=== PATIENT | female | born 1945 | race Caucasian/White ===

== ENCOUNTER 2019-07-30 14:16 | Outpatient (CLI) | payer MEDICARE, SELFPAY ==
[2019-07-30 14:48] LABS: Basophils # 0.1 10^3/uL (0.0-0.1); Eosinophils # 0.1 10^3/uL (0.0-0.8); Eosinophils % 1.9 %; Lymphocytes # 1.3 10^3/uL (0.8-4.8); Lymphocytes % 27.7 %; Mean Corpuscular HGB Conc 32.5 g/dL (30.0-36.0); Mean Corpuscular Hemoglobin 29.5 pg (28.0-34.0); Mean Corpuscular Volume 90.7 fL (81-99); Mean Platelet Volume 9.4 fL (7.4-10.4); Monocytes # 0.5 10^3/uL (0.2-0.9); Monocytes % 9.8 %; Neutrophils # 2.9 10^3/uL (1.8-7.7); Neutrophils % 59.4 %; Nucleated Red Blood Cells % 0 %; Platelet Count 182 10^3/cmm (130-400); Red Blood Count 4.41 10^6/uL (4.1-5.3); Red Cell Distribution Width 13.4 % (12.1-15.1); White Blood Count 4.8 10^3/uL (4.0-10.0)
[2019-07-30 15:07] LABS: Alanine Aminotransferase 23 U/L (0-33); Albumin Level 4.2 g/dL (3.5-5.2); Alkaline Phosphatase 113 IU/L (35-105); Anion Gap 16.8 (5-19); Aspartate Amino Transferase 23 U/L (0-32); Blood Urea Nitrogen 16 mg/dL (8-23); Carbon Dioxide 26 mmol/L (22-29); Chloride 100 mmol/L (98-107); Globulin 3.4 g/dL (1.3-4.6); Glucose 140 mg/dL (65-115); Potassium 3.8 mmol/L (3.5-5.1); Sodium 139 mmol/L (136-145); Total Bilirubin 0.6 mg/dL (0.15-1.2); Total Protein 7.6 g/dL (6.6-8.7)
--- NOTE | 2019-07-30 19:54 | ONC FU_ITS ---
Dr. Talley Patient Follow-Up Note Patient: Brooke Robert Unit #: [id number]: 1945 Dicatated By: Tuan Talley M.D.Date of Visit:Jul 30, 2019 Onc Med Follow-up/Prog Note Chief Complaint: Metastatic breast cancer, ER/VT positive, HER-2/syed unknown. History of Present Illness: This is a 73 year-old woman with stage IV breast cancer (Tx, Nx, M1), ER/VT positive, involving pleura, lung, lymph nodes and bone. She has a remote history of node positive breast cancer, status post mastectomy in 1988 followed by adjuvant chemotherapy and then hormonal treatment with tamoxifen for about 1 year, which she stopped due to intolerance. She then had an endometrial carcinoma in 2006, status post hysterectomy. In July 2015 the patient presented with significant pulmonary symptoms and weight loss. Her CT of the chest on 08/15/2015 showed diffuse metastatic disease in the lungs with a large left pleural effusion, superior mediastinal mass and bone destruction. She underwent thoracentesis by Dr. Burton. The pleural cytology was positive for malignancy consistent with breast primary. ER was positive and VT was positive. The specimen was too scant to perform HER-2/syed studies. She was first seen by Dr. Quevedo on 09/15/2015. Tumor markers were elevated with CA 15-3 151 and CA-27-29 162. She began hormonal therapy with Femara 2.5 mg daily. Staging PET/CT on 09/27/2015 showed multiple subcentimeter pulmonary nodules with FDG uptake and anterior mediastinal mass with mediastinal and hilar lymphadenopathy. There was malignant pleural effusion, right more than left, and several sclerotic bone lesions including in manubrium, sternum and thoracic vertebral bodies. She was referred to see thoracic surgeon, Dr. Murillo for the management of symptomatic pleural effusion. MRI of the head on 09/30/2015 without parenchymal metastatic disease, although blastic lesion in C3 was identified. Biopsy for HER-2/syed evaluation was requested, and ultrasound-guided biopsy of the left supraclavicular region was attempted, but it was not sufficient for HER-2/syed analysis. She was seen for follow-up with Dr. Quevedo on 10/17/2015. At that time she recommended addition of palbociclib to the Femara, to initially start at 75 mg daily on a 21/28 day schedule. During the first cycle she reported having several spells in which she has felt faint, as if she were going to pass out or . The first one occurred while she was eating dinner, and she had 2 subsequent episodes. They didn't last more than a few minutes. She did not have actual loss of consciousness, and she had no chest pain or diaphoresis. The palbociclib was temporarily put on hold. She continued letrozole 2.5 mg daily, and she subsequently was able to restart palbociclib. She was able to tolerate it at a reduced dosage of 75 mg daily on a 21/28 day schedule. Her restaging PET/CT on 05/10/2018 showed significant response with no convincing abnormal FDG activity to suggest metabolically active malignancy or metastatic disease. She had persistent right pleural effusion, for which she underwent ultrasound guided thoracentesis on 07/06/2016 with removal of 1250 ml of fluid. She had significant symptomatic improvement with the procedure. She then continued her treatment with letrozole/palbociclib. During subsequent follow-up, she has tolerated the treatment well, and thus far there has been no obvious recurrence/progression of her breast cancer. She has additional history of hypertension. She has had no other ongoing medical illnesses. She is a nonsmoker. INTERIM HISTORY: She is seen for a scheduled visit. She has been feeling pretty good generally. Her main complaint is that has had persistent sinus and upper respiratory symptoms since visiting family in [place] just before [place]. She is starting to get more active. Her ECOG score is 1. She has good appetite. She has lost a little weight. She has no fever, night sweats, or hot flashes. She continues to have sinus congestion and drainage, and she has ongoing problems with laryngitis. She has just a little bit of cough, mostly nonproductive. She has no shortness of breath or chest pain. She has some nausea at times. She has no other GI complaints. She had mild stress incontinence when her cough was worse. She has no significant joint or bone pain. She has carpal tunnel symptoms bilaterally. She has no other focal neurologic symptoms. Medications: ALPRAZolam 0.5 (0.5 mg) Tablet Oral at bedtime PRN, CeleXA 1 (20 mg) Tablet Oral daily, Docusate Sodium 1 Capsule Oral daily PRN, Femara 1 (2.5 mg) Tablet Oral daily, Ibrance 1 (75 mg) Capsule Oral daily, Lasix 1 Tablet (of 40 mg) Oral daily, Metoprolol Succinate ER 1 (50 mg) Tablet SR 24 HR Oral daily, Pantoprazole Sodium 1 Tablet (of 40 mg) Tablet, enteric coated Oral daily, Potassium Chloride ER 1 Tablet (of 10 meq) Tablet, controlled release Oral daily, Pure CBD 1 Capsule daily, Ventolin HFA Aerosol, solution Inhalation PRN, ZyrTEC Allergy Capsule Oral daily Allergies: Demerol, latex , msg , nasids, nitrates, and sulfa. Review of Systems: Constitutional - She is starting to get more active. Her appetite is good. Her weight is down a few pounds. No fever, chills, hot flashes, or night sweats. ECOG score is 1, ENMT - She has sinus congestion/drainage with a nonproductive cough. No mouth sores. No sore throat or difficulty swallowing, Hematologic/Lymphatic - No abnormal bruising or bleeding, Respiratory - No shortness of breath. No pleuritic pain or hemoptysis, Cardiovascular - No angina pain. No palpitations, Gastrointestinal - She has some nausea from her sinus drainage. No heartburn or acid reflux. No diarrhea or constipation. No blood in the stool or black stools, Genitourinary (F) - No dysuria or hematuria. No urinary frequency. No urgency. She did have some urinary incontinence when she was sick with a cold. It has gotten better, Musculoskeletal - No joint or bone pain, Integumentary - No skin complications, Neurologic - No headache or dizziness. She has numbness and tingling in her hands, Psychiatric - No anxiety. She has depression due to her being sick. She is sleeping better. Vital Signs: Performed on Jul 30, 2019 15:09 Height - 68.00 in Weight - 196.0 lbs (LOW) BSA - 2.03 sq.m BMI - 29.80 Temperature - 98.4 F Pulse - 84 /min Respiration - 16 /min BP - 171/74 mm(hg) (HIGH) O2 Sat - 99 % Pain - 0 Fatigue - 6 Physical Examination: Constitutional - She looks good generally, Eyes - Sclerae nonicteric. Conjunctivae clear, ENMT - No lesions noted in the oral cavity, Hematologic/Lymphatic - No cervical, clavicular, or axillary adenopathy, Respiratory - Lungs sound clear. She has good air movement, Cardiovascular - Heart rhythm is regular. There is a I/ systolic murmur. There is no gallop or rub noted, Abdomen - Mildly distended but soft. Liver and spleen are not enlarged. There is no abdominal mass or ascites noted and there is no inguinal adenopathy, Extremities - Mild lower extremity edema, Neurologic - No focal neurologic deficits noted. Lab/Imaging: Test performed on Jul 30, 2019 14:30 Sodium 139 mmol/L Potassium 3.8 mmol/L Chloride 100 mmol/L CO2 26 mmol/L Anion Gap 16.8 BUN 16 mg/dL Creatinine 0.9 mg/dL Cr Clearance (Est) 74.64 mL/min Glucose 140 mg/dL Calcium 10.0 mg/dL Protein, Total 7.6 g/dL Albumin 4.2 g/dL Globulin 3.4 g/dL Bilirubin, Total 0.6 mg/dL ALT (SGPT) 23 U/L AST (SGOT) 23 U/L Alkaline Phosphatase 113 IU/L WBC 4.8 10 3/uL RBC 4.41 10 6/uL HGB 13.0 g/dL HCT 40.0 % MCV 90.7 fL MCH 29.5 pg MCHC 32.5 g/dL RDW 13.4 % Platelet Count 182 10 3/cmm MPV 9.4 fL Neutrophils 2.9 10 3/uL Lymphocytes 1.3 10 3/uL Monocytes 0.5 10 3/uL Eosinophils 0.1 10 3/uL Basophils 0.1 10 3/uL Neutrophil % 59.4 % Lymphocyte % 27.7 % Monocyte % 9.8 % Eosinophil % 1.9 % Basophils % 1.0 % Impression: 1. Patient with stage IV breast cancer, ER/VT positive and HER-2 unknown. She had presented in July 2015 with symptomatic pulmonary disease, large left pleural effusion, mediastinal mass, and metastatic bone lesions. Pleural fluid cytology showed malignant cells consistent with breast primary, ER/VT positive. There was insufficient material for HER-2/syed studies. 2. Femara 2.5 mg began on 09/15/2015 with subsequent clinical improvement. 3. Palbociclib 75 mg daily on a 21/28 day schedule began . It was held during the 1st cycle due to lightheadedness/near syncope. She has since then restarted palbociclib at the same dosage, and she appears to be tolerating it well. 4. She was previously treated for breast cancer in 1988 and for endometrial cancer in 2006. Her other medical illnesses include: 5. Hypertension. 6. GERD. 7. She has symptoms of carpal tunnel syndrome bilaterally. She had significant clinical improvement on treatment with Femara/palbociclib, and there was evidence of significant response by restaging PET/CT in April 2016. She has tolerated her treatment very well with the palbociclib dosage reduced to 75 mg daily on a 21/28 day schedule. Her laboratory studies had shown some decline in her renal function, presumably due to to her underlying hypertension, during subsequent follow-up it did improve. She had persistent sinus/respiratory tract symptoms since . It is uncertain to what extent those may be allergy related. She otherwise appears stable clinically with no evidence of progression of the breast cancer. Plan: She continues letrozole 2.5 mg daily together with palbociclib 75 mg daily on a 21/28 day schedule. I will see her again in 3 months. Signed By: Tuan Talley M.D. <<Signature on File>>
[2019-07-31 09:17] LABS: CA 27.29 26 U/mL (<38)
== END 2019-07-30 14:17 | disposition home or self-care (01) ==
LOC: ONCMED 14:21
PROVIDERS: Family Provider Family Medicine; PCP Family Medicine; Visit Provider Internal Medicine Medical Oncology
DX: C79.51 Secondary malignant neoplasm of bone (principal); C50.919 Malignant neoplasm of unspecified site of unspecified female breast; C78.2 Secondary malignant neoplasm of pleura; C78.01 Secondary malignant neoplasm of right lung; C78.02 Secondary malignant neoplasm of left lung; I10 Essential (primary) hypertension; G56.03 Carpal tunnel syndrome, bilateral upper limbs; Z17.0 Estrogen receptor positive status [ER+]; Z79.899 Other long term (current) drug therapy; Z79.811 Long term (current) use of aromatase inhibitors; Z85.42 Personal history of malignant neoplasm of other parts of uterus
CPT/HCPCS: 80053; 85025; 86300; 99214

== ENCOUNTER 2019-11-03 13:47 | Outpatient (CLI) | payer MEDICARE, SELFPAY ==
[2019-11-03 14:32] LABS: Basophils # 0.1 10^3/uL (0.0-0.1); Basophils % 1.6 %; Eosinophils # 0.1 10^3/uL (0.0-0.8); Eosinophils % 1.8 %; Hemoglobin 13.4 g/dL (11.5-15.3); Lymphocytes # 1.1 10^3/uL (0.8-4.8); Lymphocytes % 24.6 %; Mean Corpuscular HGB Conc 33.5 g/dL (30.0-36.0); Mean Corpuscular Volume 92.6 fL (81-99); Mean Platelet Volume 9.9 fL (7.4-10.4); Monocytes # 0.3 10^3/uL (0.2-0.9); Monocytes % 6.2 %; Neutrophils # 2.9 10^3/uL (1.8-7.7); Neutrophils % 65.6 %; Nucleated Red Blood Cells % 0 %; Platelet Count 304 10^3/cmm (130-400); Red Blood Count 4.32 10^6/uL (4.1-5.3); Red Cell Distribution Width 13.4 % (12.1-15.1); White Blood Count 4.4 10^3/uL (4.0-10.0)
[2019-11-03 14:40] LABS: Alanine Aminotransferase 20 U/L (0-33); Albumin Level 4.5 g/dL (3.5-5.2); Alkaline Phosphatase 81 IU/L (35-105); Anion Gap 18.1 (5-19); Aspartate Amino Transferase 25 U/L (0-32); Blood Urea Nitrogen 21 mg/dL (8-23); Calcium 9.5 mg/dL (8.5-10.5); Carbon Dioxide 25 mmol/L (22-29); Chloride 101 mmol/L (98-107); Globulin 2.9 g/dL (1.3-4.6); Glucose 125 mg/dL (65-115); Osmolality Calculated 288 mOsm/kg (285-295); Potassium 4.1 mmol/L (3.5-5.1); Sodium 140 mmol/L (136-145); Total Bilirubin 0.7 mg/dL (0.15-1.2); Total Protein 7.4 g/dL (6.6-8.7)
[2019-11-05 07:26] LABS: CA 27.29 47 U/mL (<38)
--- NOTE | 2019-11-07 10:23 | ONC FU_ITS ---
Dr. Talley Patient Follow-Up Note Patient: Brooke Robert Unit #: [id number]: 1945 Dicatated By: Tuan Talley M.D.Date of Visit:Nov 03, 2019 Onc Med Follow-up/Prog Note Chief Complaint: Metastatic breast cancer, ER/CT positive, HER-2/syed unknown. History of Present Illness: This is a 74 year-old woman with stage IV breast cancer (Tx, Nx, M1), ER/CT positive, involving pleura, lung, lymph nodes and bone. She has a remote history of node positive breast cancer, status post mastectomy in 1988 followed by adjuvant chemotherapy and then hormonal treatment with tamoxifen for about 1 year, which she stopped due to intolerance. She then had an endometrial carcinoma in 2006, status post hysterectomy. In July 2015 the patient presented with significant pulmonary symptoms and weight loss. Her CT of the chest on 08/15/2015 showed diffuse metastatic disease in the lungs with a large left pleural effusion, superior mediastinal mass and bone destruction. She underwent thoracentesis by Dr. Burton. The pleural cytology was positive for malignancy consistent with breast primary. ER was positive and CT was positive. The specimen was too scant to perform HER-2/syed studies. She was first seen by Dr. Quevedo on 09/15/2015. Tumor markers were elevated with CA 15-3 151 and CA-27-29 162. She began hormonal therapy with Femara 2.5 mg daily. Staging PET/CT on 09/27/2015 showed multiple subcentimeter pulmonary nodules with FDG uptake and anterior mediastinal mass with mediastinal and hilar lymphadenopathy. There was malignant pleural effusion, right more than left, and several sclerotic bone lesions including in manubrium, sternum and thoracic vertebral bodies. She was referred to see thoracic surgeon, Dr. Murillo for the management of symptomatic pleural effusion. MRI of the head on 09/30/2015 without parenchymal metastatic disease, although blastic lesion in C3 was identified. Biopsy for HER-2/syed evaluation was requested, and ultrasound-guided biopsy of the left supraclavicular region was attempted, but it was not sufficient for HER-2/syed analysis. She was seen for follow-up with Dr. Quevedo on 10/17/2015. At that time she recommended addition of palbociclib to the Femara, to initially start at 75 mg daily on a 21/28 day schedule. During the first cycle she reported having several spells in which she has felt faint, as if she were going to pass out or . The first one occurred while she was eating dinner, and she had 2 subsequent episodes. They didn't last more than a few minutes. She did not have actual loss of consciousness, and she had no chest pain or diaphoresis. The palbociclib was temporarily put on hold. She continued letrozole 2.5 mg daily, and she subsequently was able to restart palbociclib. She was able to tolerate it at a reduced dosage of 75 mg daily on a 21/28 day schedule. Her restaging PET/CT on 05/10/2018 showed significant response with no convincing abnormal FDG activity to suggest metabolically active malignancy or metastatic disease. She had persistent right pleural effusion, for which she underwent ultrasound guided thoracentesis on 07/06/2016 with removal of 1250 ml of fluid. She had significant symptomatic improvement with the procedure. She then continued her treatment with letrozole/palbociclib. She tolerated it well, and during subsequent follow-up there was no obvious recurrence/progression of her breast cancer. She has additional history of hypertension. She has had no other ongoing medical illnesses. She is a nonsmoker. INTERIM HISTORY: As of her follow-up visit on 07/30/2019 there was a slight increase in the CA-27-29 level, to 26 U/mL compared to 19.83 U/mL in February 2019. She appeared stable clinically, and she continued her treatment with letrozole/palbociclib. She is seen for a scheduled visit. She has been feeling really good. She has pretty good energy. She is able to do light work. ECOG score is 1. Her appetite is good. She has no fever, night sweats, or hot flashes. She has no shortness of breath, cough, or chest pain. She has no GI or complaints. She has no significant joint or bone pain. She does have carpal tunnel symptoms bilaterally. She has no other focal neurologic symptoms. Medications: ALPRAZolam 0.5 (0.5 mg) Tablet Oral at bedtime PRN, CeleXA 1 (20 mg) Tablet Oral daily, Docusate Sodium 1 Capsule Oral daily PRN, Femara 1 (2.5 mg) Tablet Oral daily, Ibrance 1 (75 mg) Capsule Oral daily, Lasix 1 Tablet (of 40 mg) Oral daily, Metoprolol Succinate ER 1 (50 mg) Tablet SR 24 HR Oral daily, Pantoprazole Sodium 1 Tablet (of 40 mg) Tablet, enteric coated Oral daily, Potassium Chloride ER 1 Tablet (of 10 meq) Tablet, controlled release Oral daily, Pure CBD 1 Capsule daily, Ventolin HFA Aerosol, solution Inhalation PRN, ZyrTEC Allergy Capsule Oral daily Allergies: Demerol, latex, msg, nasids, nitrates, and sulfa. Review of Systems: Constitutional - She generally feels good. She energy is good. She is doing light work in and around the house. Her appetite is good and weight is stable. No fever, night sweats, or hot flashes. ECOG score is 1, ENMT - She has seasonal allergies. No mouth sores. No sore throat or difficulty swallowing, Hematologic/Lymphatic - She bruises easily, Respiratory - No shortness of breath. No cough. No pleuritic pain or hemoptysis, Cardiovascular - No angina pain. No palpitations, Gastrointestinal - No nausea or vomiting. No heartburn or acid reflux. She stopped taking her Prilosec. No diarrhea or constipation. No blood in the stool or black stools, Genitourinary (F) - No dysuria or hematuria. No urinary frequency. No urgency or incontinence, Musculoskeletal - No joint or bone pain, Integumentary - No skin complications, Neurologic - No headache or dizziness. She has carpal tunnel symptoms in both hands. No other focal neurologic symptoms, Psychiatric - No anxiety or depression. She has does not sleep well at night. Vital Signs: Performed on Nov 03, 2019 15:21 Height - 68.00 in Weight - 200.6 lbs (HIGH) BSA - 2.05 sq.m BMI - 30.50 (HIGH) Temperature - 98.2 F (LOW) Pulse - 86 /min Respiration - 20 /min BP - 134/66 mm(hg) O2 Sat - 97 % Pain - 0 Physical Examination: Constitutional - She looks good generally, Eyes - Sclerae nonicteric. Conjunctivae clear, ENMT - No lesions noted in the oral cavity, Hematologic/Lymphatic - No cervical, clavicular, or axillary adenopathy, Respiratory - Lungs sound clear. She has good air movement bilaterally, Cardiovascular - Heart rhythm is regular. There is no murmur, gallop, or rub noted, Abdomen - Soft. Liver and spleen are not enlarged. There is no abdominal mass or ascites noted and there is no inguinal adenopathy, Extremities - Mild lower extremity edema, Neurologic - No focal neurologic deficits noted. Lab/Imaging: Test performed on Nov 03, 2019 14:00 Sodium 140 mmol/L Potassium 4.1 mmol/L Chloride 101 mmol/L CO2 25 mmol/L Anion Gap 18.1 BUN 21 mg/dL Creatinine 1.0 mg/dL Cr Clearance (Est) 68.75 mL/min Glucose 125 mg/dL Calcium 9.5 mg/dL Protein, Total 7.4 g/dL Albumin 4.5 g/dL Globulin 2.9 g/dL Bilirubin, Total 0.7 mg/dL ALT (SGPT) 20 U/L AST (SGOT) 25 U/L Alkaline Phosphatase 81 IU/L WBC 4.4 10 3/uL RBC 4.32 10 6/uL HGB 13.4 g/dL HCT 40.0 % MCV 92.6 fL MCH 31.0 pg MCHC 33.5 g/dL RDW 13.4 % Platelet Count 304 10 3/cmm MPV 9.9 fL Neutrophils 2.9 10 3/uL Lymphocytes 1.1 10 3/uL Monocytes 0.3 10 3/uL Eosinophils 0.1 10 3/uL Basophils 0.1 10 3/uL Neutrophil % 65.6 % Lymphocyte % 24.6 % Monocyte % 6.2 % Eosinophil % 1.8 % Basophils % 1.6 % NRBC % 0 % Impression: 1. Patient with stage IV breast cancer, ER/CT positive and HER-2 unknown. She had presented in July 2015 with symptomatic pulmonary disease, large left pleural effusion, mediastinal mass, and metastatic bone lesions. Pleural fluid cytology showed malignant cells consistent with breast primary, ER/CT positive. There was insufficient material for HER-2/syed studies. 2. Femara 2.5 mg began on 09/15/2015 with subsequent clinical improvement. 3. Palbociclib 75 mg daily on a 21/28 day schedule began . It was held during the 1st cycle due to lightheadedness/near syncope. She has since then restarted palbociclib at the same dosage, and she appears to be tolerating it well. 4. She was previously treated for breast cancer in 1988 and for endometrial cancer in 2006. Her other medical illnesses include: 5. Hypertension. 6. GERD. 7. She has symptoms of carpal tunnel syndrome bilaterally. She had significant clinical improvement on treatment with Femara/palbociclib, and there was evidence of significant response by restaging PET/CT in April 2016. She has tolerated her treatment very well with the palbociclib dosage reduced to 75 mg daily on a 21/28 day schedule. Her laboratory studies had shown some decline in her renal function, presumably due to to her underlying hypertension, but during subsequent follow-up it did improve. As of her follow-up visit on 07/30/2019 there was a slight increase in her CA-27-29 level. As yet the significance of that remains uncertain, as she has still been doing very well clinically. The current level is pending. Plan: She continues letrozole 2.5 mg daily together with palbociclib 75 mg daily on a 21/28 day schedule. If there is further increase in the CA-27-29 level, she will need a restaging PET/CT. I will otherwise just plan to see her again in 3 months. Signed By: Tuan Talley M.D. <<Signature on File>>
== END 2019-11-03 13:48 | disposition home or self-care (01) ==
LOC: ONCMED 13:51
PROVIDERS: PCP Family Medicine; Visit Provider Internal Medicine Medical Oncology
DX: C79.51 Secondary malignant neoplasm of bone (principal); C78.01 Secondary malignant neoplasm of right lung; C78.02 Secondary malignant neoplasm of left lung; C78.2 Secondary malignant neoplasm of pleura; J91.0 Malignant pleural effusion; N18.9 Chronic kidney disease, unspecified; M85.88 Other specified disorders of bone density and structure, other site; I10 Essential (primary) hypertension; K21.9 Gastro-esophageal reflux disease without esophagitis; G56.03 Carpal tunnel syndrome, bilateral upper limbs; Z85.3 Personal history of malignant neoplasm of breast; Z85.42 Personal history of malignant neoplasm of other parts of uterus; Z79.811 Long term (current) use of aromatase inhibitors; Z92.21 Personal history of antineoplastic chemotherapy; Z92.3 Personal history of irradiation; Z90.12 Acquired absence of left breast and nipple; Z90.11 Acquired absence of right breast and nipple; Z90.710 Acquired absence of both cervix and uterus
CPT/HCPCS: 36415; 80053; 85025; 86300; 99214

== ENCOUNTER 2020-02-11 07:35 | Outpatient (CLI) | payer MEDICARE, SELFPAY ==
--- NOTE | 2020-02-11 07:42 | CT_ITS ---
WS: [id number] CT CHEST WITH INTRAVENOUS CONTRAST HISTORY: METASTATIC BREAST CANCER TECHNIQUE: Contiguous 5 mm axial imaging performed on the thorax. Coronal and sagittal reformats are submitted. All CT scans at [facility] use at least one of these dose optimization techniq ues: automated exposure control; mA and/or kV adjustment per patient size (includes targeted exams wh ere dose is matched to clinical indication); or iterative reconstruction. CONTRAST: Visipaque 320; 95 mL IV. DLP: 696.54 mGy.cm COMPARISON: 08/15/2015 Lungs and central airway: Innumerable bilateral pulmonary nodules. Some of these are round in shape a nd some are irregular and ill-defined. These nodules and central parenchymal. These multi lobar nodul es are all less than a centimeter. As compared to the prior study from 2015 there is been marked impr ovement. Pleura: Small layering RIGHT pleural effusion has decreased in size since the prior exam. Heart and pericardium: Mild enlargement of the LEFT heart chambers. No pericardial effusion. Mediastinum and gabi: Indeterminate bilateral hilar lymph nodes. The largest lymph node is along the inferior LEFT pulmonary artery measuring 10 mm. This lymph node is more prominent in size than on the prior examination. Otherwise the lymph nodes are stable or decreased in size. Previously described increased soft tissue in the anterior mediastinum has significantly decreased in size now measuring 2.3 x 1.1 cm. Vessels: Mild atherosclerosis aorta. Normal size pulmonary artery. Chest wall and lower neck: Bilateral breast implants. 11 mm RIGHT thyroid nodule. Upper abdomen: Mild hepatic steatosis. No metastatic lesions in the visualized liver. Prior cholecyst ectomy. Small hiatal hernia. No adrenal mass. Osseous structures: Osteopenia. No osteoblastic or osteolytic bone disease. CT/CT chest w con* [id number] IMPRESSION: 1. Innumerable, multilobar subcentimeter pulmonary nodules. As compared to 07/26 the nodules have decreased in size and number. Cannot completely exclude that these are not new nodules representing recurrent metastatic disease witho ut interval examinations. 2. Indeterminate and enlarged LEFT pulmonary artery lymph node at 11 mm. 3. Small RIGHT pleural effusion has decreased since 2016. 4. Bilateral mastectomies with implants. 5. Significant decrease in size of the previously described superior mediastin al soft tissue. Thought to be metastatic adenopathy on the prior study. There i s still a small component of the soft tissue present which could be treated dis ease. No interval studies since 08/15/2015.
[2020-02-11 08:15] LABS: Basophils # 0.1 10^3/uL (0.0-0.1); Basophils % 1.2 %; Eosinophils # 0.1 10^3/uL (0.0-0.8); Eosinophils % 2.7 %; Hematocrit 38.9 % (37.0-47.0); Hemoglobin 12.9 g/dL (11.5-15.3); Lymphocytes # 1.1 10^3/uL (0.8-4.8); Mean Corpuscular HGB Conc 33.2 g/dL (30.0-36.0); Mean Corpuscular Hemoglobin 31.2 pg (28.0-34.0); Mean Corpuscular Volume 94.2 fL (81-99); Mean Platelet Volume 9.2 fL (7.4-10.4); Monocytes # 0.3 10^3/uL (0.2-0.9); Monocytes % 6.1 %; Neutrophils # 2.63 10^3/uL (1.8-7.7); Neutrophils % 63.8 %; Nucleated Red Blood Cells % 0 %; Platelet Count 151 10^3/cmm (130-400); Red Blood Count 4.13 10^6/uL (4.1-5.3); White Blood Count 4.1 10^3/uL (4.0-10.0)
[2020-02-11 08:39] LABS: Alanine Aminotransferase 15 U/L (0-33); Albumin Level 4.2 g/dL (3.5-5.2); Alkaline Phosphatase 79 IU/L (35-105); Anion Gap 14.1 (5-19); Aspartate Amino Transferase 15 U/L (0-32); Blood Urea Nitrogen 19 mg/dL (8-23); Calcium 9.5 mg/dL (8.5-10.5); Carbon Dioxide 28 mmol/L (22-29); Chloride 101 mmol/L (98-107); Glucose 135 mg/dL (65-115); Osmolality Calculated 292 mOsm/kg (285-295); Potassium 4.1 mmol/L (3.5-5.1); Sodium 139 mmol/L (136-145); Total Bilirubin 0.5 mg/dL (0.15-1.2); Total Protein 7.2 g/dL (6.6-8.7)
[2020-02-11] MEDS: iodixanol 320 mg/mL 100mL Btl IV (09:02)
[2020-02-11 09:16] LABS: 25 Hydroxy Vitamin D 28 ng/mL (30-100)
[2020-02-12 11:47] LABS: CA 27.29 30 U/mL (<38)
== END 2020-02-11 07:36 | disposition home or self-care (01) ==
LOC: CT 07:37
PROVIDERS: PCP Family Medicine; Visit Provider Internal Medicine Medical Oncology
DX: C50.919 Malignant neoplasm of unspecified site of unspecified female breast (principal); R91.8 Other nonspecific abnormal finding of lung field; R59.0 Localized enlarged lymph nodes; Z90.13 Acquired absence of bilateral breasts and nipples; J90 Pleural effusion, not elsewhere classified
CPT/HCPCS: 36415; 71260; 80053; 82306; 85025; 86300

== ENCOUNTER 2020-02-19 08:07 | Outpatient (CLI) | payer MEDICARE, SELFPAY ==
--- NOTE | 2020-02-19 09:43 | ONC FU_ITS ---
Dr. Talley Patient Follow-Up Note Patient: Brooke Robert Unit #: [id number]: 1945 Dicatated By: Tuan Talley M.D.Date of Visit:Feb 19, 2020 Onc Med Follow-up/Prog Note Chief Complaint: Metastatic breast cancer, ER/MS positive, HER-2/syed unknown. History of Present Illness: This is a 74 year-old woman with stage IV breast cancer (Tx, Nx, M1), ER/MS positive, involving pleura, lung, lymph nodes and bone. She has a remote history of node positive breast cancer, status post mastectomy in 1988 followed by adjuvant chemotherapy and then hormonal treatment with tamoxifen for about 1 year, which she stopped due to intolerance. She then had an endometrial carcinoma in 2006, status post hysterectomy. In July 2015 the patient presented with significant pulmonary symptoms and weight loss. Her CT of the chest on 08/15/2015 showed diffuse metastatic disease in the lungs with a large left pleural effusion, superior mediastinal mass and bone destruction. She underwent thoracentesis by Dr. Burton. The pleural cytology was positive for malignancy consistent with breast primary. ER was positive and MS was positive. The specimen was too scant to perform HER-2/ysed studies. She was first seen by Dr. Quevedo on 09/15/2015. Tumor markers were elevated with CA 15-3 151 and CA-27-29 162. She began hormonal therapy with Femara 2.5 mg daily. Staging PET/CT on 09/27/2015 showed multiple subcentimeter pulmonary nodules with FDG uptake and anterior mediastinal mass with mediastinal and hilar lymphadenopathy. There was malignant pleural effusion, right more than left, and several sclerotic bone lesions including in manubrium, sternum and thoracic vertebral bodies. She was referred to see thoracic surgeon, Dr. Murillo for the management of symptomatic pleural effusion. MRI of the head on 09/30/2015 without parenchymal metastatic disease, although blastic lesion in C3 was identified. Biopsy for HER-2/syed evaluation was requested, and ultrasound-guided biopsy of the left supraclavicular region was attempted, but it was not sufficient for HER-2/syed analysis. She was seen for follow-up with Dr. Quevedo on 10/17/2015. At that time she recommended addition of palbociclib to the Femara, to initially start at 75 mg daily on a 21/28 day schedule. During the first cycle she reported having several spells in which she has felt faint, as if she were going to pass out or . The first one occurred while she was eating dinner, and she had 2 subsequent episodes. They didn't last more than a few minutes. She did not have actual loss of consciousness, and she had no chest pain or diaphoresis. The palbociclib was temporarily put on hold. She continued letrozole 2.5 mg daily, and she subsequently was able to restart palbociclib. She was able to tolerate it at a reduced dosage of 75 mg daily on a 21/28 day schedule. Her restaging PET/CT on 05/10/2018 showed significant response with no convincing abnormal FDG activity to suggest metabolically active malignancy or metastatic disease. She had persistent right pleural effusion, for which she underwent ultrasound guided thoracentesis on 07/06/2016 with removal of 1250 ml of fluid. She had significant symptomatic improvement with the procedure. She then continued her treatment with letrozole/palbociclib. She tolerated it well, and during subsequent follow-up there was no obvious recurrence/progression of her breast cancer. She has additional history of hypertension. She has had no other ongoing medical illnesses. She is a nonsmoker. INTERIM HISTORY: As of her follow-up visit on 07/30/2019 there was a slight increase in the CA-27-29 level, to 26 U/mL compared to 19.83 U/mL in February 2019. She appeared stable clinically, and she continued her treatment with letrozole/palbociclib. As of 11/03/2019 there was further increase in the CA-27-29 level to 47 U/mL. Restaging PET/CT on 11/19/2019 showed bilateral pulmonary nodules which are markedly improved compared to the July 2015 study. These were below the PET/CT size evaluation threshold. Right pleural effusion also was noted to have improved. A slightly hypermetabolic left hilar lymph node was felt to be nonspecific. A single hypermetabolic focus within the anterior hepatic segment was felt to possibly represent metastasis. Restaging chest CT on 02/11/2020 showed innumerable bilateral pulmonary nodules, all subcentimeter in size. The appearance was markedly improved compared to the prior study, that was back in July 2015. A small right pleural effusion was noted to have decreased in size. There were indeterminant bilateral hilar lymph nodes. The largest was along the inferior left pulmonary artery measuring 10 mm. Previously described increased soft tissue in the anterior mediastinum was significantly decreased measuring 2.3 x 1.1 cm. There is mild hepatic steatosis with no visualized metastatic disease in the liver. There was no evidence for osteoblastic or osteolytic bone disease. She is seen for a scheduled visit. She has been feeling pretty good generally. She does complain that she has been really tired, but much of that she attributes to just being an active and somewhat depressed. She is still doing light work. ECOG score is 1. She has good appetite. She has not had fever or night sweats. She occasionally has mild hot flashes. She is sometimes a little wheezy or short of breath with activity. She does not complain of cough and she has not been having chest pain. She had some nausea earlier this week, but that has resolved. She has no other GI or complaints. She has pain in her neck and knees, which is chronic. She has no other joint or bone pain. She has had some numbness in her fingers. She has no other focal neurologic symptoms. Medications: ALPRAZolam 0.5 (0.5 mg) Tablet Oral at bedtime PRN, CeleXA 1 (20 mg) Tablet Oral daily, Docusate Sodium 1 Capsule Oral daily PRN, Femara 1 (2.5 mg) Tablet Oral daily, Ibrance 1 (75 mg) Capsule Oral daily, Lasix 1 Tablet (of 40 mg) Oral daily, Metoprolol Succinate ER 1 (50 mg) Tablet SR 24 HR Oral daily, Pantoprazole Sodium 1 Tablet (of 40 mg) Tablet, enteric coated Oral daily, Potassium Chloride ER 1 Tablet (of 10 meq) Tablet, controlled release Oral daily, Pure CBD 1 Capsule daily, Ventolin HFA Aerosol, solution Inhalation PRN, ZyrTEC Allergy Capsule Oral daily Allergies: Demerol, latex , msg , nasids, nitrates, and sulfa. Review of Systems: Constitutional - She has generally been feeling pretty good. She does have some fatigue but feels it is from lack of exercise. She is able to do light work in and around the house. Her appetite is good and her weight is stable. No fevers or night sweats. She has occasional hot flashes. ECOG score is 1, ENMT - No sinus congestion/drainage. No mouth sores. No sore throat or difficulty swallowing, Hematologic/Lymphatic - No abnormal bruising or bleeding, Respiratory - She sometimes gets short of breath and feels wheezy with exertion. No cough. No pleuritic pain or hemoptysis, Cardiovascular - No angina pain. No palpitations, Gastrointestinal - She had some nausea last week, but it has resolved. No vomiting. No heartburn or acid reflux. No diarrhea or constipation. No blood in the stool or black stools, Genitourinary (F) - No dysuria or hematuria. No urinary frequency. No urgency or incontinence, Musculoskeletal - She has pain in knees and in her neck, Integumentary - She has bilateral lower extremity edema, Neurologic - No headache or dizziness. She has some numbness and tingling in her fingers. No other focal neurologic symptoms, Psychiatric - She is having some depression. No insomnia. Vital Signs: Performed on Feb 19, 2020 08:20 Height - 68.00 in Weight - 200.4 lbs (LOW) BSA - 2.05 sq.m BMI - 30.47 (HIGH) Temperature - 97.6 F (LOW) Pulse - 66 /min Respiration - 20 /min BP - 174/73 mm(hg) (HIGH) O2 Sat - 98 % Pain - 0 Physical Examination: Constitutional - She looks good generally, Eyes - Sclerae nonicteric. Conjunctivae clear, ENMT - No lesions noted in the oral cavity, Hematologic/Lymphatic - No cervical, clavicular, or axillary adenopathy, Respiratory - Lungs sound clear. She has good air movement bilaterally, Cardiovascular - Heart rhythm is regular. There is no murmur, gallop, or rub noted, Abdomen - Soft. Liver and spleen are not enlarged. There is no abdominal mass or ascites noted and there is no inguinal adenopathy, Extremities - Mild lower extremity edema, Neurologic - No focal neurologic deficits noted. Lab/Imaging: CBC shows hemoglobin 12.9 g, white blood cell count 4100, and platelet count 151,000. Comprehensive metabolic profile shows stable renal function with BUN 19 and creatinine 1.1 mg/dL. Liver enzymes are normal. The 25-hydroxy vitamin D level is slightly low at 28 ng/mL. The CA-27-29 level has come down to 30 U/mL. Impression: 1. Patient with stage IV breast cancer, ER/MS positive and HER-2 unknown. She had presented in July 2015 with symptomatic pulmonary disease, large left pleural effusion, mediastinal mass, and metastatic bone lesions. Pleural fluid cytology showed malignant cells consistent with breast primary, ER/MS positive. There was insufficient material for HER-2/syed studies. 2. Femara 2.5 mg began on 09/15/2015 with subsequent clinical improvement. 3. Palbociclib 75 mg daily on a 21/28 day schedule began . It was held during the 1st cycle due to lightheadedness/near syncope. She has since then restarted palbociclib at the same dosage, and she appears to be tolerating it well. 4. She was previously treated for breast cancer in 1988 and for endometrial cancer in 2006. Her other medical illnesses include: 5. Hypertension. 6. GERD. 7. She has symptoms of carpal tunnel syndrome bilaterally. She had significant clinical improvement on treatment with Femara/palbociclib, and there was evidence of significant response by restaging PET/CT in April 2016. She has tolerated her treatment very well with the palbociclib dosage reduced to 75 mg daily on a 21/28 day schedule. Her laboratory studies had shown some decline in her renal function, presumably due to to her underlying hypertension, but during subsequent follow-up it did improve. As of her follow-up visit on 07/30/2019 there was a slight increase in her CA-27-29 level, to 26 U/mL, and as of 11/03/2019 it had further increased to 47 U/mL. She continued her same treatment. Her restaging PET/CT in October and her chest CT on 02/11/2020 both showed improvedment in innumerable small pulmonary nodules bilaterally and in the right pleural effusion, but that was compared to her previous study from July 2015. As such, it is uncertain whether or not her disease may be progressing. Plan: In the absence of any definite evidence of disease progression, she will continue her same treatment with letrozole 2.5 mg daily together with palbociclib 75 mg daily on a 21/28 day schedule. She will start supplementation with vitamin D3 1000 units daily. She will be scheduled for a follow-up visit in 3 months. In the meantime, I will request the PET/CT disc for comparison to the current chest CT scan. Signed By: Tuan Talley M.D. <<Signature on File>>
== END 2020-02-19 08:08 | disposition home or self-care (01) ==
LOC: ONCMED 08:09
PROVIDERS: PCP Family Medicine; Visit Provider Internal Medicine Medical Oncology
DX: C50.919 Malignant neoplasm of unspecified site of unspecified female breast (principal); Z17.0 Estrogen receptor positive status [ER+]; C79.51 Secondary malignant neoplasm of bone; C78.2 Secondary malignant neoplasm of pleura; C78.00 Secondary malignant neoplasm of unspecified lung; I10 Essential (primary) hypertension; K21.9 Gastro-esophageal reflux disease without esophagitis; Z79.811 Long term (current) use of aromatase inhibitors; Z79.899 Other long term (current) drug therapy
CPT/HCPCS: 99214

== ENCOUNTER 2020-05-31 13:54 | Outpatient (CLI) | payer MEDICARE, SELFPAY ==
[2020-05-31 14:50] LABS: Basophils # 0.1 10^3/uL (0.0-0.1); Basophils % 1.1 %; Eosinophils % 0.6 %; Hemoglobin 13.8 g/dL (11.5-15.3); Lymphocytes # 1.1 10^3/uL (0.8-4.8); Lymphocytes % 22.6 %; Mean Corpuscular HGB Conc 33.7 g/dL (30.0-36.0); Mean Corpuscular Hemoglobin 31.5 pg (28.0-34.0); Mean Corpuscular Volume 93.6 fL (81-99); Mean Platelet Volume 9.5 fL (7.4-10.4); Monocytes # 0.2 10^3/uL (0.2-0.9); Neutrophils # 3.39 10^3/uL (1.8-7.7); Neutrophils % 71.5 %; Nucleated Red Blood Cells % 0 %; Platelet Count 157 10^3/cmm (130-400); Red Blood Count 4.38 10^6/uL (4.1-5.3); Red Cell Distribution Width 12.9 % (12.1-15.1); White Blood Count 4.7 10^3/uL (4.0-10.0)
[2020-05-31 15:59] LABS: 25 Hydroxy Vitamin D 23 ng/mL (30-100); Alanine Aminotransferase 14 U/L (0-33); Albumin Level 4.4 g/dL (3.5-5.2); Alkaline Phosphatase 85 IU/L (35-105); Anion Gap 13.9 (5-19); Aspartate Amino Transferase 15 U/L (0-32); Blood Urea Nitrogen 16 mg/dL (8-23); Calcium 9.5 mg/dL (8.5-10.5); Carbon Dioxide 29 mmol/L (22-29); Chloride 99 mmol/L (98-107); Globulin 2.7 g/dL (1.3-4.6); Glucose 155 mg/dL (65-115); Osmolality Calculated 290 mOsm/kg (285-295); Potassium 3.9 mmol/L (3.5-5.1); Sodium 138 mmol/L (136-145); Total Bilirubin 0.7 mg/dL (0.15-1.2); Total Protein 7.1 g/dL (6.6-8.7)
[2020-06-01 08:33] LABS: CA 27.29 24 U/mL (<38)
--- NOTE | 2020-06-04 16:25 | ONC FU_ITS ---
Dr. Talley Patient Follow-Up Note Patient: Brooke Robert Unit #: [id number]: 1945 Dicatated By: Tuan Talley M.D.Date of Visit:May 31, 2020 Onc Med Follow-up/Prog Note Chief Complaint: Metastatic breast cancer, ER/CO positive, HER-2/syed unknown. History of Present Illness: This is a 74 year-old woman with stage IV breast cancer (Tx, Nx, M1), ER/CO positive, involving pleura, lung, lymph nodes and bone. She has a remote history of node positive breast cancer, status post mastectomy in 1988 followed by adjuvant chemotherapy and then hormonal treatment with tamoxifen for about 1 year, which she stopped due to intolerance. She then had an endometrial carcinoma in 2006, status post hysterectomy. In July 2015 the patient presented with significant pulmonary symptoms and weight loss. Her CT of the chest on 08/15/2015 showed diffuse metastatic disease in the lungs with a large left pleural effusion, superior mediastinal mass and bone destruction. She underwent thoracentesis by Dr. Burton. The pleural cytology was positive for malignancy consistent with breast primary. ER was positive and CO was positive. The specimen was too scant to perform HER-2/syed studies. She was first seen by Dr. Quevedo on 09/15/2015. Tumor markers were elevated with CA 15-3 151 and CA-27-29 162. She began hormonal therapy with Femara 2.5 mg daily. Staging PET/CT on 09/27/2015 showed multiple subcentimeter pulmonary nodules with FDG uptake and anterior mediastinal mass with mediastinal and hilar lymphadenopathy. There was malignant pleural effusion, right more than left, and several sclerotic bone lesions including in manubrium, sternum and thoracic vertebral bodies. She was referred to see thoracic surgeon, Dr. Murillo for the management of symptomatic pleural effusion. MRI of the head on 09/30/2015 without parenchymal metastatic disease, although blastic lesion in C3 was identified. Biopsy for HER-2/syed evaluation was requested, and ultrasound-guided biopsy of the left supraclavicular region was attempted, but it was not sufficient for HER-2/syed analysis. She was seen for follow-up with Dr. Quevedo on 10/17/2015. At that time she recommended addition of palbociclib to the Femara, to initially start at 75 mg daily on a 21/28 day schedule. During the first cycle she reported having several spells in which she has felt faint, as if she were going to pass out or . The first one occurred while she was eating dinner, and she had 2 subsequent episodes. They didn't last more than a few minutes. She did not have actual loss of consciousness, and she had no chest pain or diaphoresis. The palbociclib was temporarily put on hold. She continued letrozole 2.5 mg daily, and she subsequently was able to restart palbociclib. She was able to tolerate it at a reduced dosage of 75 mg daily on a 21/28 day schedule. Her restaging PET/CT on 05/10/2018 showed significant response with no convincing abnormal FDG activity to suggest metabolically active malignancy or metastatic disease. She had persistent right pleural effusion, for which she underwent ultrasound guided thoracentesis on 07/06/2016 with removal of 1250 ml of fluid. She had significant symptomatic improvement with the procedure. She then continued her treatment with letrozole/palbociclib. She tolerated it well, and during subsequent follow-up there was no obvious recurrence/progression of her breast cancer. She has additional history of hypertension. She has had no other ongoing medical illnesses. She is a nonsmoker. INTERIM HISTORY: As of her follow-up visit on 07/30/2019 there was a slight increase in the CA-27-29 level, to 26 U/mL compared to 19.83 U/mL in February 2019. She appeared stable clinically, and she continued her treatment with letrozole/palbociclib. As of 11/03/2019 there was further increase in the CA-27-29 level to 47 U/mL. Restaging PET/CT on 11/19/2019 showed bilateral pulmonary nodules which were markedly improved compared to the July 2015 study. These were below the PET/CT size evaluation threshold. Right pleural effusion also was noted to have improved. A slightly hypermetabolic left hilar lymph node was felt to be nonspecific. A single hypermetabolic focus within the anterior hepatic segment was felt to possibly represent metastasis. Restaging chest CT on 02/11/2020 showed innumerable bilateral pulmonary nodules, all subcentimeter in size. The appearance was markedly improved compared to the prior study, that was back in July 2015. A small right pleural effusion was noted to have decreased in size. There were indeterminant bilateral hilar lymph nodes. The largest was along the inferior left pulmonary artery measuring 10 mm. Previously described increased soft tissue in the anterior mediastinum was significantly decreased measuring 2.3 x 1.1 cm. There was mild hepatic steatosis with no visualized metastatic disease in the liver. There was no evidence for osteoblastic or osteolytic bone disease. With those findings she continued treatment with letrozole/palbociclib. She is seen for a scheduled visit. She has been feeling good generally. She said that she was wheezy for the whole month of April, but that seems to have resolved, and her breathing is better now. Her main complaint otherwise is that she has been having more anxiety and depression, mainly due to the restrictions imposed by the COVID-19 pandemic. Her energy has been okay and she has normal activity. Appetite is okay, but not tremendous. She has no fever, night sweats, or hot flashes. She does not complain of shortness of breath or cough. She has had no chest pain, but she does occasionally have fluttering in her chest. She was having some nausea, that has resolved. She has no other GI or complaints. She has occasional back pain. She does not complain of headache or dizziness. She does have numbness in her upper extremities consistent with carpal tunnel syndrome. Medications: ALPRAZolam 0.5 (0.5 mg) Tablet Oral at bedtime PRN, CeleXA 1 (20 mg) Tablet Oral daily, Docusate Sodium 1 Capsule Oral daily PRN, Femara 1 (2.5 mg) Tablet Oral daily, Ibrance 1 (75 mg) Capsule Oral daily, Lasix 1 Tablet (of 40 mg) Oral daily PRN, Metoprolol Succinate ER 1 (50 mg) Tablet SR 24 HR Oral daily, Pantoprazole Sodium 1 Tablet (of 40 mg) Tablet, enteric coated Oral daily, Pure CBD 1 Capsule daily, Ventolin HFA Aerosol, solution Inhalation PRN, ZyrTEC Allergy Capsule Oral daily Allergies: Demerol, latex , msg , nasids, nitrates, and sulfa. Vital Signs: Performed on May 31, 2020 15:49 Height - 68.00 in Weight - 200.4 lbs BSA - 2.05 sq.m BMI - 30.47 (HIGH) Temperature - 97.4 F (LOW) Pulse - 100 /min Respiration - 18 /min BP - 168/88 mm(hg) (HIGH) O2 Sat - 94 % (LOW) Pain - 0 Physical Examination: Constitutional - She looks good generally, Eyes - Sclerae nonicteric. Conjunctivae clear, ENMT - No lesions noted in the oral cavity, Hematologic/Lymphatic - No cervical, clavicular, or axillary adenopathy, Respiratory - Lungs sound clear. She has good air movement bilaterally, Cardiovascular - Heart rhythm is regular. There is no murmur, gallop, or rub noted, Abdomen - Soft. Liver and spleen are not enlarged. There is no abdominal mass or ascites noted and there is no inguinal adenopathy, Extremities - No edema, Neurologic - No focal neurologic deficits noted. Lab/Imaging: Test performed on May 31, 2020 14:32 Sodium 138 mmol/L Vitamin D (25-Hydroxy), Total 23 ng/mL Potassium 3.9 mmol/L Chloride 99 mmol/L CO2 29 mmol/L Anion Gap 13.9 BUN 16 mg/dL Creatinine 1.0 mg/dL Cr Clearance (Est) 68.6800 mL/min Glucose 155 mg/dL Osmolality - Calculated 290 mOsm/kg Calcium 9.5 mg/dL Protein, Total 7.1 g/dL Albumin 4.4 g/dL Globulin 2.7 g/dL Bilirubin, Total 0.7 mg/dL ALT (SGPT) 14 U/L AST (SGOT) 15 U/L Alkaline Phosphatase 85 IU/L WBC 4.7 10 3/uL RBC 4.38 10 6/uL HGB 13.8 g/dL HCT 41.0 % MCV 93.6 fL MCH 31.5 pg MCHC 33.7 g/dL RDW 12.9 % Platelet Count 157 10 3/cmm MPV 9.5 fL Neutrophils 3.39 10 3/uL Lymphocytes 1.1 10 3/uL Monocytes 0.2 10 3/uL Eosinophils 0.0 10 3/uL Basophils 0.1 10 3/uL Neutrophil % 71.5 % Lymphocyte % 22.6 % Monocyte % 4.0 % Eosinophil % 0.6 % Basophils % 1.1 % NRBC % 0 % CA 27.29 24 U/mL Historic Problem List: 1. Stage IV breast cancer, ER/CO positive and HER-2 unknown. She had presented in July 2015 with symptomatic pulmonary disease, large left pleural effusion, mediastinal mass, and metastatic bone lesions. Pleural fluid cytology showed malignant cells consistent with breast primary, ER/CO positive. There was insufficient material for HER-2/syed studies. 2. Femara 2.5 mg began on 09/15/2015 with subsequent clinical improvement. 3. Palbociclib 75 mg daily on a 21/28 day schedule began . It was held during the 1st cycle due to lightheadedness/near syncope. She subsequently restarted palbociclib at the same dosage, and she tolerated it well. 4. She was previously treated for breast cancer in 1988 and for endometrial cancer in 2006. 5. Hypertension. 6. GERD. 7. She has symptoms of carpal tunnel syndrome bilaterally. She had significant clinical improvement on treatment with Femara/palbociclib, and there was evidence of significant response by restaging PET/CT in April 2016. She has tolerated her treatment very well with the palbociclib dosage reduced to 75 mg daily on a 21/28 day schedule. Her laboratory studies had shown some decline in her renal function, presumably due to to her underlying hypertension, but during subsequent follow-up it did improve. As of her follow-up visit on 07/30/2019 there was a slight increase in her CA-27-29 level, to 26 U/mL, and as of 11/03/2019 it had further increased to 47 U/mL. She continued her same treatment. Her restaging PET/CT in October and her chest CT on 02/11/2020 both showed improvedment in innumerable small pulmonary nodules bilaterally and in the right pleural effusion, but that was compared to her previous study from July 2015. As such, it is uncertain whether or not her disease may be progressing. Problems Addressed with this Encounter and Plan: 1. Stage IV breast cancer, ER/CO positive and HER-2 unknown. She has associated pulmonary metastatic disease, malignant left pleural effusion, mediastinal involvement, and metastatic bone lesions. She has had a very good response to treatment with letrozole in combination with palbociclib. She has tolerated the treatment well at a reduced dosage of palbociclib. Thus far during follow-up there has been no evidence of disease progression. Her clinical status at this point appears stable. She will continue her treatment with palbociclib 75 mg daily on a 21/28-day schedule together with letrozole 2.5 mg daily. She will be scheduled for a follow-up visit in 3 months. 2. Anxiety/depression. Her symptoms have worsened in association with restrictions imposed by the COVID-19 pandemic. She had stopped treatment with citalopram, but she is agreeable now to restarting it. 3. Vitamin D deficiency. She continues to have a low 25-hydroxy vitamin D level despite supplementation with vitamin D3 2000 units daily. As such, she will start vitamin D2 50,000 units weekly for 4 weeks, then monthly. Signed By: Tuan Talley M.D. <<Signature on File>>
== END 2020-05-31 13:55 | disposition home or self-care (01) ==
PROVIDERS: PCP Family Medicine; Visit Provider Internal Medicine Medical Oncology
DX: C50.811 Malignant neoplasm of overlapping sites of right female breast (principal); C50.812 Malignant neoplasm of overlapping sites of left female breast; Z17.0 Estrogen receptor positive status [ER+]; C78.2 Secondary malignant neoplasm of pleura; C78.01 Secondary malignant neoplasm of right lung; C78.02 Secondary malignant neoplasm of left lung; C79.51 Secondary malignant neoplasm of bone; J91.0 Malignant pleural effusion; N18.9 Chronic kidney disease, unspecified; I10 Essential (primary) hypertension; K21.9 Gastro-esophageal reflux disease without esophagitis; G56.03 Carpal tunnel syndrome, bilateral upper limbs; Z79.811 Long term (current) use of aromatase inhibitors
CPT/HCPCS: 36415; 80053; 82306; 85025; 86300; 99214

== ENCOUNTER 2020-11-21 15:00 | Outpatient (CLI) | payer MEDICARE, SELFPAY ==
[2020-11-21 16:09] LABS: Basophils % 0.5 %; Eosinophils # 0.3 10^3/uL (0.0-0.8); Eosinophils % 3.7 %; Hematocrit 39.8 % (37.0-47.0); Hemoglobin 12.8 g/dL (11.5-15.3); Lymphocytes # 1.3 10^3/uL (0.8-4.8); Lymphocytes % 16.2 %; Mean Corpuscular HGB Conc 32.2 g/dL (30.0-36.0); Mean Corpuscular Hemoglobin 27.8 pg (28.0-34.0); Mean Corpuscular Volume 86.5 fL (81-99); Mean Platelet Volume 10.2 fL (7.4-10.4); Monocytes # 0.6 10^3/uL (0.2-0.9); Neutrophils # 5.56 10^3/uL (1.8-7.7); Neutrophils % 71.3 %; Nucleated Red Blood Cells % 0 %; Platelet Count 191 10^3/cmm (130-400); Red Cell Distribution Width 12.7 % (12.1-15.1); White Blood Count 7.8 10^3/uL (4.0-10.0)
[2020-11-21 16:46] LABS: Alanine Aminotransferase 15 U/L (0-33); Albumin Level 3.9 g/dL (3.5-5.2); Alkaline Phosphatase 90 IU/L (35-105); Aspartate Amino Transferase 15 U/L (0-32); Blood Urea Nitrogen 24 mg/dL (8-23); Carbon Dioxide 28 mmol/L (22-29); Chloride 101 mmol/L (98-107); Globulin 2.8 g/dL (1.3-4.6); Glucose 90 mg/dL (65-115); Osmolality Calculated 292 mOsm/kg (285-295); Sodium 139 mmol/L (136-145); Total Bilirubin 0.4 mg/dL (0.15-1.2); Total Protein 6.7 g/dL (6.6-8.7)
[2020-11-21 17:31] LABS: 25 Hydroxy Vitamin D 55 ng/mL (30-100)
== END 2020-11-21 15:01 | disposition home or self-care (01) ==
LOC: ONCMED 15:07
PROVIDERS: PCP Family Medicine; Visit Provider Internal Medicine Medical Oncology
DX: C50.919 Malignant neoplasm of unspecified site of unspecified female breast (principal); Z17.0 Estrogen receptor positive status [ER+]; C79.51 Secondary malignant neoplasm of bone; C78.01 Secondary malignant neoplasm of right lung; C78.02 Secondary malignant neoplasm of left lung; C78.2 Secondary malignant neoplasm of pleura; J91.0 Malignant pleural effusion; N18.9 Chronic kidney disease, unspecified; Z79.811 Long term (current) use of aromatase inhibitors
CPT/HCPCS: 36415; 80053; 82306; 85025

== ENCOUNTER 2020-11-22 08:21 | Outpatient (CLI) | payer MEDICARE, SELFPAY ==
--- NOTE | 2020-11-22 09:13 | ONC FU_ITS ---
Dr. Talley Patient Follow-Up Note Patient: Brooke Robert Unit #: [id number]: 1945 Dicatated By: Tuan Talley M.D.Date of Visit:Nov 22, 2020 Onc Med Follow-up/Prog Note Chief Complaint: Metastatic breast cancer, ER/AK positive, HER-2/syed unknown. History of Present Illness: This is a 74 year-old woman with stage IV breast cancer (Tx, Nx, M1), ER/AK positive, involving pleura, lung, lymph nodes and bone. She has a remote history of node positive breast cancer, status post mastectomy in 1988 followed by adjuvant chemotherapy and then hormonal treatment with tamoxifen for about 1 year, which she stopped due to intolerance. She then had an endometrial carcinoma in 2006, status post hysterectomy. In July 2015 the patient presented with significant pulmonary symptoms and weight loss. Her CT of the chest on 08/15/2015 showed diffuse metastatic disease in the lungs with a large left pleural effusion, superior mediastinal mass and bone destruction. She underwent thoracentesis by Dr. Burton. The pleural cytology was positive for malignancy consistent with breast primary. ER was positive and AK was positive. The specimen was too scant to perform HER-2/syed studies. She was first seen by Dr. Quevedo on 09/15/2015. Tumor markers were elevated with CA 15-3 151 and CA-27-29 162. She began hormonal therapy with Femara 2.5 mg daily. Staging PET/CT on 09/27/2015 showed multiple subcentimeter pulmonary nodules with FDG uptake and anterior mediastinal mass with mediastinal and hilar lymphadenopathy. There was malignant pleural effusion, right more than left, and several sclerotic bone lesions including in manubrium, sternum and thoracic vertebral bodies. She was referred to see thoracic surgeon, Dr. Murillo for the management of symptomatic pleural effusion. MRI of the head on 09/30/2015 without parenchymal metastatic disease, although blastic lesion in C3 was identified. Biopsy for HER-2/syed evaluation was requested, and ultrasound-guided biopsy of the left supraclavicular region was attempted, but it was not sufficient for HER-2/syed analysis. She was seen for follow-up with Dr. Quevedo on 10/17/2015. At that time she recommended addition of palbociclib to the Femara, to initially start at 75 mg daily on a 21/28 day schedule. During the first cycle she reported having several spells in which she has felt faint, as if she were going to pass out or . The first one occurred while she was eating dinner, and she had 2 subsequent episodes. They didn't last more than a few minutes. She did not have actual loss of consciousness, and she had no chest pain or diaphoresis. The palbociclib was temporarily put on hold. She continued letrozole 2.5 mg daily, and she subsequently was able to restart palbociclib. She was able to tolerate it at a reduced dosage of 75 mg daily on a 21/28 day schedule. Her restaging PET/CT on 05/10/2018 showed significant response with no convincing abnormal FDG activity to suggest metabolically active malignancy or metastatic disease. She had persistent right pleural effusion, for which she underwent ultrasound guided thoracentesis on 07/06/2016 with removal of 1250 ml of fluid. She had significant symptomatic improvement with the procedure. She then continued her treatment with letrozole/palbociclib. She tolerated it well, and during subsequent follow-up there was no obvious recurrence/progression of her breast cancer. She has additional history of hypertension. She has had no other ongoing medical illnesses. She is a nonsmoker. INTERIM HISTORY: As of her follow-up visit on 07/30/2019 there was a slight increase in the CA-27-29 level, to 26 U/mL compared to 19.83 U/mL in February 2019. She appeared stable clinically, and she continued her treatment with letrozole/palbociclib. As of 11/03/2019 there was further increase in the CA-27-29 level to 47 U/mL. Restaging PET/CT on 11/19/2019 showed bilateral pulmonary nodules which were markedly improved compared to the July 2015 study. These were below the PET/CT size evaluation threshold. Right pleural effusion also was noted to have improved. A slightly hypermetabolic left hilar lymph node was felt to be nonspecific. A single hypermetabolic focus within the anterior hepatic segment was felt to possibly represent metastasis. Restaging chest CT on 02/11/2020 showed innumerable bilateral pulmonary nodules, all subcentimeter in size. The appearance was markedly improved compared to the prior study, that was back in July 2015. A small right pleural effusion was noted to have decreased in size. There were indeterminant bilateral hilar lymph nodes. The largest was along the inferior left pulmonary artery measuring 10 mm. Previously described increased soft tissue in the anterior mediastinum was significantly decreased measuring 2.3 x 1.1 cm. There was mild hepatic steatosis with no visualized metastatic disease in the liver. There was no evidence for osteoblastic or osteolytic bone disease. With those findings she continued treatment with letrozole/palbociclib. She is seen for a scheduled visit. She has been feeling pretty good generally. She indicates that she stopped getting shipments of her palbociclib a couple of months ago, and she has thus not been taking it. She says her energy is not good, but she is doing gardening and housework. ECOG score is 1. Appetite is good. She has no fever, night sweats, or hot flashes. She has some allergy related sinus symptoms. Recently she has been a little short of breath. She does not complain of cough and she has not been having chest pain. She has a little nausea, attributable to sinus drainage. She developed some constipation after she stopped drinking coffee. She is managing that with prune juice and stool softener. She has no other GI or complaints. She has been having neck pain which and it has worsened somewhat after she fell in her garden. She also some problems with her knees. She does not complain of headache or dizziness. She has a little bit of numbness/tingling in her feet, and she has occasional electrical shocks in her arms. Medications: ALPRAZolam 0.5 (0.5 mg) Tablet Oral at bedtime PRN, CeleXA 1 (20 mg) Tablet Oral daily, Docusate Sodium 1 Capsule Oral daily PRN, Femara 1 (2.5 mg) Tablet Oral daily, Hydrochlorothiazide 1 (25 mg) Tablet Oral daily, Ibrance 1 (75 mg) Capsule Oral daily, Metoprolol Succinate ER 1 (50 mg) Tablet SR 24 HR Oral daily, Pantoprazole Sodium 1 Tablet (of 40 mg) Tablet, enteric coated Oral daily, Pure CBD 1 Capsule daily, Ventolin HFA Aerosol, solution Inhalation PRN, ZyrTEC Allergy Capsule Oral daily Allergies: Demerol, latex , msg , nasids, nitrates, and sulfa. Vital Signs: Performed on Nov 22, 2020 08:59 Height - 68.00 in Weight - 196.6 lbs (LOW) BSA - 2.03 sq.m BMI - 29.89 Temperature - 97.9 F (LOW) Pulse - 96 /min Respiration - 18 /min BP - 181/83 mm(hg) (HIGH) O2 Sat - 94 % (LOW) Pain - 2 Fatigue - 4 Physical Examination: Constitutional - She looks good generally, Eyes - Sclerae nonicteric. Conjunctivae clear, ENMT - No lesions noted in the oral cavity, Hematologic/Lymphatic - No cervical, clavicular, or axillary adenopathy, Respiratory - Lungs sound clear. She has good air movement bilaterally, Cardiovascular - Heart rhythm is regular. There is no murmur, gallop, or rub noted, Abdomen - Soft. Liver and spleen are not enlarged. There is no abdominal mass or ascites noted and there is no inguinal adenopathy, Extremities - Slight edema, Neurologic - No focal neurologic deficits noted. Lab/Imaging: Test performed on May 31, 2020 14:32 Sodium 138 mmol/L Vitamin D (25-Hydroxy), Total 23 ng/mL Potassium 3.9 mmol/L Chloride 99 mmol/L CO2 29 mmol/L Anion Gap 13.9 BUN 16 mg/dL Creatinine 1.0 mg/dL Cr Clearance (Est) 68.6800 mL/min Glucose 155 mg/dL Osmolality - Calculated 290 mOsm/kg Calcium 9.5 mg/dL Protein, Total 7.1 g/dL Albumin 4.4 g/dL Globulin 2.7 g/dL Bilirubin, Total 0.7 mg/dL ALT (SGPT) 14 U/L AST (SGOT) 15 U/L Alkaline Phosphatase 85 IU/L WBC 4.7 10 3/uL RBC 4.38 10 6/uL HGB 13.8 g/dL HCT 41.0 % MCV 93.6 fL MCH 31.5 pg MCHC 33.7 g/dL RDW 12.9 % Platelet Count 157 10 3/cmm MPV 9.5 fL Neutrophils 3.39 10 3/uL Lymphocytes 1.1 10 3/uL Monocytes 0.2 10 3/uL Eosinophils 0.0 10 3/uL Basophils 0.1 10 3/uL Neutrophil % 71.5 % Lymphocyte % 22.6 % Monocyte % 4.0 % Eosinophil % 0.6 % Basophils % 1.1 % NRBC % 0 % CA 27.29 24 U/mL Problem List: 1. Stage IV breast cancer, ER/AK positive and HER-2 unknown. She had presented in July 2015 with symptomatic pulmonary disease, large left pleural effusion, mediastinal mass, and metastatic bone lesions. Pleural fluid cytology showed malignant cells consistent with breast primary, ER/AK positive. There was insufficient material for HER-2/syed studies. 2. Femara 2.5 mg began on 09/15/2015 with subsequent clinical improvement. 3. Palbociclib 75 mg daily on a day schedule began . It was held during the 1st cycle due to lightheadedness/near syncope. She subsequently restarted palbociclib at the same dosage, and she tolerated it well. 4. She was previously treated for breast cancer in 1988 and for endometrial cancer in 2006. 5. Hypertension. 6. GERD. 7. She has symptoms of carpal tunnel syndrome bilaterally. Problems Addressed with this Encounter and Plan: 1. Patient with stage IV breast cancer, ER/AK positive and HER-2 unknown. She has associated pulmonary metastatic disease, malignant left pleural effusion, mediastinal involvement, and metastatic bone lesions. She has had a very good response to treatment with letrozole in combination with palbociclib. She has tolerated the treatment well at a reduced dosage of palbociclib. Thus far during follow-up there has been no evidence of disease progression. However, as of a few months ago she had stopped getting her palbociclib shipments, and she has been taking only the letrozole. She is having increased neck pain. As such, she will be scheduled for MRI of the cervical spine, and I will recheck her CA 27-29 level she will have further evaluation as indicated. In the meantime, I will get her restarted on the palbociclib or change to a different CDK 4/6 inhibitor. I will tenably plan a follow-up visit in 3 months. 2. Vitamin D deficiency. It has corrected with addition of vitamin D2 50,000 units monthly along with her vitamin D3 2000 units daily. Signed By: Tuan Talley M.D. <<Signature on File>>
== END 2020-11-22 08:22 | disposition home or self-care (01) ==
LOC: ONCMED 08:23
PROVIDERS: PCP Family Medicine; Visit Provider Internal Medicine Medical Oncology
DX: C77.9 Secondary and unspecified malignant neoplasm of lymph node, unspecified (principal); C79.51 Secondary malignant neoplasm of bone; C78.00 Secondary malignant neoplasm of unspecified lung; C78.2 Secondary malignant neoplasm of pleura; C50.919 Malignant neoplasm of unspecified site of unspecified female breast; Z85.42 Personal history of malignant neoplasm of other parts of uterus; Z90.10 Acquired absence of unspecified breast and nipple; Z90.710 Acquired absence of both cervix and uterus; Z17.0 Estrogen receptor positive status [ER+]; I10 Essential (primary) hypertension; K21.9 Gastro-esophageal reflux disease without esophagitis; Z79.899 Other long term (current) drug therapy
CPT/HCPCS: 99214

== ENCOUNTER 2021-02-20 12:22 | Outpatient (CLI) | payer MEDICARE, SELFPAY ==
[2021-02-20 14:38] LABS: Basophils # 0.1 10^3/uL (0.0-0.1); Basophils % 0.9 %; Eosinophils # 0.2 10^3/uL (0.0-0.8); Eosinophils % 4.1 %; Hematocrit 41.2 % (37.0-47.0); Hemoglobin 13.2 g/dL (11.5-15.3); Lymphocytes % 17.6 %; Mean Corpuscular Hemoglobin 28.1 pg (28.0-34.0); Mean Corpuscular Volume 87.7 fl (81-99); Monocytes # 0.2 10^3/uL (0.2-0.9); Monocytes % 4.1 %; Neutrophils # 4.19 10^3/uL (1.8-7.7); Neutrophils % 72.1 %; Nucleated Red Blood Cells % 0 %; Platelet Count 258 10^3/cmm (130-400); Red Cell Distribution Width 13.7 % (12.1-15.1); White Blood Count 5.8 10^3/uL (4.0-10.0)
[2021-02-20 15:04] LABS: Alanine Aminotransferase 12 U/L (0-33); Albumin Level 4.3 g/dL (3.5-5.2); Alkaline Phosphatase 91 IU/L (35-105); Anion Gap 15.1 (5-19); Aspartate Amino Transferase 13 U/L (0-32); Blood Urea Nitrogen 22 mg/dL (8-23); Calcium 9.8 mg/dL (8.5-10.5); Carbon Dioxide 28 mmol/L (22-29); Chloride 97 mmol/L (98-107); Globulin 3.4 g/dL (1.3-4.6); Glucose 153 mg/dL (65-115); Osmolality Calculated 288 mOsm/kg (285-295); Potassium 4.1 mmol/L (3.5-5.1); Sodium 136 mmol/L (136-145); Total Bilirubin 0.5 mg/dL (0.15-1.2); Total Protein 7.7 g/dL (6.6-8.7)
--- NOTE | 2021-02-21 06:54 | ONC FU_ITS ---
Dr. Talley Patient Follow-Up Note Patient: Brooke Robert Unit #: [id number]: [id number] Dicatated By: Tuan Talley M.D.Date of Visit:Feb 20, 2021 Onc Med Follow-up/Prog Note Chief Complaint: Metastatic breast cancer, ER/MO positive, HER-2/syed unknown. History of Present Illness: This is a 75 year-old woman with stage IV breast cancer (Tx, Nx, M1), ER/MO positive, involving pleura, lung, lymph nodes and bone. She has a remote history of node positive breast cancer, status post mastectomy in 1988 followed by adjuvant chemotherapy and then hormonal treatment with tamoxifen for about 1 year, which she stopped due to intolerance. She then had an endometrial carcinoma in 2006, status post hysterectomy. In July 2015 the patient presented with significant pulmonary symptoms and weight loss. Her CT of the chest on 08/15/2015 showed diffuse metastatic disease in the lungs with a large left pleural effusion, superior mediastinal mass and bone destruction. She underwent thoracentesis by Dr. Burton. The pleural cytology was positive for malignancy consistent with breast primary. ER was positive and MO was positive. The specimen was too scant to perform HER-2/syed studies. She was first seen by Dr. Quevedo on 09/15/2015. Tumor markers were elevated with CA 15-3 151 and CA-27-29 162. She began hormonal therapy with Femara 2.5 mg daily. Staging PET/CT on 09/27/2015 showed multiple subcentimeter pulmonary nodules with FDG uptake and anterior mediastinal mass with mediastinal and hilar lymphadenopathy. There was malignant pleural effusion, right more than left, and several sclerotic bone lesions including in manubrium, sternum and thoracic vertebral bodies. She was referred to see thoracic surgeon, Dr. Murillo for the management of symptomatic pleural effusion. MRI of the head on 09/30/2015 without parenchymal metastatic disease, although blastic lesion in C3 was identified. Biopsy for HER-2/syed evaluation was requested, and ultrasound-guided biopsy of the left supraclavicular region was attempted, but it was not sufficient for HER-2/syed analysis. She was seen for follow-up with Dr. Quevedo on 10/17/2015. At that time she recommended addition of palbociclib to the Femara, to initially start at 75 mg daily on a 21/28 day schedule. During the first cycle she reported having several spells in which she has felt faint, as if she were going to pass out or . The first one occurred while she was eating dinner, and she had 2 subsequent episodes. They didn't last more than a few minutes. She did not have actual loss of consciousness, and she had no chest pain or diaphoresis. The palbociclib was temporarily put on hold. She continued letrozole 2.5 mg daily, and she subsequently was able to restart palbociclib. She was able to tolerate it at a reduced dosage of 75 mg daily on a 21/28 day schedule. Her restaging PET/CT on 05/10/2018 showed significant response with no convincing abnormal FDG activity to suggest metabolically active malignancy or metastatic disease. She had persistent right pleural effusion, for which she underwent ultrasound guided thoracentesis on 07/06/2016 with removal of 1250 ml of fluid. She had significant symptomatic improvement with the procedure. She then continued her treatment with letrozole/palbociclib. She tolerated it well, and during subsequent follow-up there was no obvious recurrence/progression of her breast cancer. She has additional history of hypertension. She has had no other ongoing medical illnesses. She is a nonsmoker. INTERIM HISTORY: As of her follow-up visit on 07/30/2019 there was a slight increase in the CA-27-29 level, to 26 U/mL compared to 19.83 U/mL in February 2019. She appeared stable clinically, and she continued her treatment with letrozole/palbociclib. As of 11/03/2019 there was further increase in the CA-27-29 level to 47 U/mL. Restaging PET/CT on 11/19/2019 showed bilateral pulmonary nodules which were markedly improved compared to the July 2015 study. These were below the PET/CT size evaluation threshold. Right pleural effusion also was noted to have improved. A slightly hypermetabolic left hilar lymph node was felt to be nonspecific. A single hypermetabolic focus within the anterior hepatic segment was felt to possibly represent metastasis. Restaging chest CT on 02/11/2020 showed innumerable bilateral pulmonary nodules, all subcentimeter in size. The appearance was markedly improved compared to the prior study, from July 2015. A small right pleural effusion was noted to have decreased in size. There were indeterminant bilateral hilar lymph nodes. The largest was along the inferior left pulmonary artery measuring 10 mm. Previously described increased soft tissue in the anterior mediastinum was significantly decreased measuring 2.3 x 1.1 cm. There was mild hepatic steatosis with no visualized metastatic disease in the liver. There was no evidence for osteoblastic or osteolytic bone disease. With those findings she continued treatment with letrozole/palbociclib. She is seen for a scheduled visit. She has been feeling pretty good generally. She says her energy has been low, but some of that she attributes to summer weather. She says it is getting better now that it is starting to cool off. ECOG score is 1. She has good appetite. She has no fever, night sweats, or hot flashes. She has some sinus drainage and she has had a dry cough. She does not complain of shortness of breath or chest pain. She was having nausea, attributable to the sinus drainage. She also has some constipation. Bladder function remains adequate. She has had some pain in her tailbone area when she first wakes up in the morning. She has no other joint or bone pain. She does not complain of headache or dizziness. She has carpal tunnel symptoms in both hands. She has no other focal neurologic symptoms. Medications: ALPRAZolam 0.5 (0.5 mg) Tablet Oral at bedtime PRN, CeleXA 1 (20 mg) Tablet Oral daily, Docusate Sodium 1 Capsule Oral daily PRN, Femara 1 (2.5 mg) Tablet Oral daily, Hydrochlorothiazide 1 (25 mg) Tablet Oral daily, Ibrance 1 (75 mg) Capsule Oral daily, Metoprolol Succinate ER 1 (50 mg) Tablet SR 24 HR Oral daily, Pantoprazole Sodium 1 Tablet (of 40 mg) Tablet, enteric coated Oral daily, Pure CBD 1 Capsule daily, Ventolin HFA Aerosol, solution Inhalation PRN, ZyrTEC Allergy Capsule Oral daily Allergies: Demerol, latex , msg , nasids, nitrates, and sulfa. Vital Signs: Performed on Feb 20, 2021 15:36 Height - 68.00 in Weight - 189.2 lbs (LOW) BSA - 2.00 sq.m BMI - 28.77 Temperature - 97.7 F (LOW) Pulse - 81 /min Respiration - 18 /min BP - 177/66 mm(hg) (HIGH) O2 Sat - 92 % (LOW) Pain - 0 Fatigue - 2 Physical Examination: Constitutional - She looks good generally, Eyes - Sclerae nonicteric. Conjunctivae clear, ENMT - No lesions noted in the oral cavity, Hematologic/Lymphatic - No cervical, clavicular, or axillary adenopathy, Respiratory - Lungs sound clear. She has good air movement bilaterally, Cardiovascular - Heart rhythm is regular. There is no murmur, gallop, or rub noted, Abdomen - Soft. Liver and spleen are not enlarged. There is no abdominal mass or ascites noted and there is no inguinal adenopathy, Extremities - Mild edema, Neurologic - No focal neurologic deficits noted. Lab/Imaging: Test performed on Feb 20, 2021 14:21 Sodium 136 mmol/L Potassium 4.1 mmol/L Chloride 97 mmol/L CO2 28 mmol/L Anion Gap 15.1 BUN 22 mg/dL Creatinine 1.1 mg/dL Cr Clearance (Est) 58.03 mL/min Glucose 153 mg/dL Osmolality - Calculated 288 mOsm/kg Calcium 9.8 mg/dL Protein, Total 7.7 g/dL Albumin 4.3 g/dL Globulin 3.4 g/dL Bilirubin, Total 0.5 mg/dL ALT (SGPT) 12 U/L AST (SGOT) 13 U/L Alkaline Phosphatase 91 IU/L WBC 5.8 10 3/uL RBC 4.70 10 6/uL HGB 13.2 g/dL HCT 41.2 % MCV 87.7 fl MCH 28.1 pg MCHC 32.0 g/dL RDW 13.7 % Platelet Count 258 10 3/cmm MPV 10.0 fL Neutrophils 4.19 10 3/uL Lymphocytes 1.0 10 3/uL Monocytes 0.2 10 3/uL Eosinophils 0.2 10 3/uL Basophils 0.1 10 3/uL Neutrophil % 72.1 % Lymphocyte % 17.6 % Monocyte % 4.1 % Eosinophil % 4.1 % Basophils % 0.9 % NRBC % 0 % Problem List: 1. Stage IV breast cancer, ER/MO positive and HER-2 unknown. 2. She was previously treated for breast cancer in 1988 and for endometrial cancer in 2006. 3. Hypertension. 4. GERD. 5. She has symptoms of carpal tunnel syndrome bilaterally. Problems Addressed with this Encounter and Plan: Patient with stage IV breast cancer, ER/MO positive and HER-2 unknown. She had associated pulmonary metastatic disease, malignant left pleural effusion, mediastinal involvement, and metastatic bone lesions at initial diagnosis in July 2015. She had a very good response to treatment with letrozole in combination with palbociclib. She has tolerated the treatment well at a reduced dosage of palbociclib. During follow-up she has been doing well clinically. She has been tolerating the palbociclib at the reduced dosage with no significant adverse effects. Thus far there has been no evidence of progression of the breast cancer. As such, she will continue her treatment with letrozole 2.5 mg daily together with palbociclib 75 mg daily on a 21/28-day schedule. I will see her again in 3 months, or sooner as needed. Signed By: Tuan Talley M.D. <<Signature on File>>
[2021-02-21 09:42] LABS: CA 27.29 28 U/mL (<38)
== END 2021-02-20 12:23 | disposition home or self-care (01) ==
PROVIDERS: PCP Family Medicine; Visit Provider Internal Medicine Medical Oncology
DX: C78.01 Secondary malignant neoplasm of right lung (principal); C78.02 Secondary malignant neoplasm of left lung; C79.51 Secondary malignant neoplasm of bone; Z85.3 Personal history of malignant neoplasm of breast; Z85.44 Personal history of malignant neoplasm of other female genital organs; I10 Essential (primary) hypertension; K21.9 Gastro-esophageal reflux disease without esophagitis; G56.03 Carpal tunnel syndrome, bilateral upper limbs; Z79.899 Other long term (current) drug therapy; Z79.811 Long term (current) use of aromatase inhibitors
CPT/HCPCS: 36415; 80053; 85025; 86300; 99214

== ENCOUNTER 2021-07-28 09:33 | Outpatient (CLI) | payer MEDICARE, SELFPAY ==
[2021-07-28 10:32] LABS: Basophils # 0.1 10^3/uL (0.0-0.1); Basophils % 1.3 %; Eosinophils # 0.4 10^3/uL (0.0-0.8); Eosinophils % 9.3 %; Hematocrit 38.3 % (37.0-47.0); Hemoglobin 12.8 g/dL (11.5-15.3); Lymphocytes # 0.7 10^3/uL (0.8-4.8); Lymphocytes % 17.9 %; Mean Corpuscular HGB Conc 33.4 g/dL (30.0-36.0); Mean Corpuscular Hemoglobin 30.8 pg (28.0-34.0); Mean Corpuscular Volume 92.3 fl (81-99); Mean Platelet Volume 9.2 fL (7.4-10.4); Monocytes # 0.3 10^3/uL (0.2-0.9); Monocytes % 7.6 %; Neutrophils # 2.53 10^3/uL (1.8-7.7); Neutrophils % 63.6 %; Nucleated Red Blood Cells % 0 %; Platelet Count 149 10^3/cmm (130-400); Red Blood Count 4.15 10^6/uL (4.1-5.3); Red Cell Distribution Width 13.1 % (12.1-15.1)
[2021-07-28 11:20] LABS: 25 Hydroxy Vitamin D 20 ng/mL (30-100); Alanine Aminotransferase 11 U/L (0-33); Albumin Level 4.3 g/dL (3.5-5.2); Alkaline Phosphatase 82 IU/L (35-105); Anion Gap 15.9 (5-19); Aspartate Amino Transferase 12 U/L (0-32); Blood Urea Nitrogen 25 mg/dL (8-23); CA 15-3 19.6 U/mL (0-25); Calcium 9.6 mg/dL (8.5-10.5); Carbon Dioxide 25 mmol/L (22-29); Chloride 104 mmol/L (98-107); Globulin 2.8 g/dL (1.3-4.6); Glucose 124 mg/dL (65-115); Osmolality Calculated 298 mOsm/kg (285-295); Potassium 3.9 mmol/L (3.5-5.1); Sodium 141 mmol/L (136-145); Total Bilirubin 0.5 mg/dL (0.15-1.2); Total Protein 7.1 g/dL (6.6-8.7)
--- NOTE | 2021-07-29 21:14 | ONC FU_ITS ---
Stephanie Dao Progress Note Patient: Brooke Robert Unit #: [id number]: 1945 Dicatated By: Stephanie Dao N.P.Date of Visit:Jul 28, 2021 Onc MED Follow-up/Prog Note Chief Complaint: Metastatic breast cancer, ER/IA positive, HER-2/syed unknown. History of Present Illness: This is a 75 year-old woman with stage IV breast cancer (Tx, Nx, M1), ER/IA positive, involving pleura, lung, lymph nodes and bone. She has a remote history of node positive breast cancer, status post mastectomy in 1988 followed by adjuvant chemotherapy and then hormonal treatment with tamoxifen for about 1 year, which she stopped due to intolerance. She then had an endometrial carcinoma in 2006, status post hysterectomy. In July 2015 the patient presented with significant pulmonary symptoms and weight loss. Her CT of the chest on 08/15/2015 showed diffuse metastatic disease in the lungs with a large left pleural effusion, superior mediastinal mass and bone destruction. She underwent thoracentesis by Dr. Burton. The pleural cytology was positive for malignancy consistent with breast primary. ER was positive and IA was positive. The specimen was too scant to perform HER-2/syed studies. She was first seen by Dr. Quevedo on 09/15/2015. Tumor markers were elevated with CA 15-3 151 and CA-27-29 162. She began hormonal therapy with Femara 2.5 mg daily. Staging PET/CT on 09/27/2015 showed multiple subcentimeter pulmonary nodules with FDG uptake and anterior mediastinal mass with mediastinal and hilar lymphadenopathy. There was malignant pleural effusion, right more than left, and several sclerotic bone lesions including in manubrium, sternum and thoracic vertebral bodies. She was referred to see thoracic surgeon, Dr. Murillo for the management of symptomatic pleural effusion. MRI of the head on 09/30/2015 without parenchymal metastatic disease, although blastic lesion in C3 was identified. Biopsy for HER-2/syed evaluation was requested, and ultrasound-guided biopsy of the left supraclavicular region was attempted, but it was not sufficient for HER-2/syed analysis. She was seen for follow-up with Dr. Quevedo on 10/17/2015. At that time she recommended addition of palbociclib to the Femara, to initially start at 75 mg daily on a 21/28 day schedule. During the first cycle she reported having several spells in which she has felt faint, as if she were going to pass out or . The first one occurred while she was eating dinner, and she had 2 subsequent episodes. They didn't last more than a few minutes. She did not have actual loss of consciousness, and she had no chest pain or diaphoresis. The palbociclib was temporarily put on hold. She continued letrozole 2.5 mg daily, and she subsequently was able to restart palbociclib. She was able to tolerate it at a reduced dosage of 75 mg daily on a 21/28 day schedule. Her restaging PET/CT on 05/10/2018 showed significant response with no convincing abnormal FDG activity to suggest metabolically active malignancy or metastatic disease. She had persistent right pleural effusion, for which she underwent ultrasound guided thoracentesis on 07/06/2016 with removal of 1250 ml of fluid. She had significant symptomatic improvement with the procedure. She then continued her treatment with letrozole/palbociclib. She tolerated it well, and during subsequent follow-up there was no obvious recurrence/progression of her breast cancer. She has additional history of hypertension. She has had no other ongoing medical illnesses. She is a nonsmoker. INTERIM HISTORY: As of her follow-up visit on 07/30/2019 there was a slight increase in the CA-27-29 level, to 26 U/mL compared to 19.83 U/mL in February 2019. She appeared stable clinically, and she continued her treatment with letrozole/palbociclib. As of 11/03/2019 there was further increase in the CA-27-29 level to 47 U/mL. Restaging PET/CT on 11/19/2019 showed bilateral pulmonary nodules which were markedly improved compared to the July 2015 study. These were below the PET/CT size evaluation threshold. Right pleural effusion also was noted to have improved. A slightly hypermetabolic left hilar lymph node was felt to be nonspecific. A single hypermetabolic focus within the anterior hepatic segment was felt to possibly represent metastasis. Restaging chest CT on 02/11/2020 showed innumerable bilateral pulmonary nodules, all subcentimeter in size. The appearance was markedly improved compared to the prior study, from July 2015. A small right pleural effusion was noted to have decreased in size. There were indeterminant bilateral hilar lymph nodes. The largest was along the inferior left pulmonary artery measuring 10 mm. Previously described increased soft tissue in the anterior mediastinum was significantly decreased measuring 2.3 x 1.1 cm. There was mild hepatic steatosis with no visualized metastatic disease in the liver. There was no evidence for osteoblastic or osteolytic bone disease. With those findings she continued treatment with letrozole/palbociclib. Patient presents today for follow-up. She states she has had some increasing fatigue. Her appetite has been good. She denies fever, chills, night sweats. She states she has been experiencing increased shortness of breath and wheezing at times. She denies chest pain. She denies GI or problems. No joint or muscle pain. No headache or dizziness. She is currently taking letrozole and Ibrance and tolerating it well. Review Of Symptoms: See above. Past Medical History: Hypertension Pneumonia in 2015 Endometrial cancer in 2006 Breast cancer in 1988 Past Surgical History: Covid vaccine #2 in 2020 Covid vaccine #1 in 2020 Flu vaccine in 2018 Hysterectomy in 2006 Cholecystectomy in 1993 Breast reconstruction in 1988 Mastectomy in 1988 - double Lumpectomy in 1985 D & C in 1973 Lumpectomy in 1972 Knee surgery in 1969 Adenoidectomy in 9 Tonsillectomy in 194 Allergies: Demerol, latex , msg , nasids, nitrates, and sulfa. Medications: ALPRAZolam 0.5 (0.5 mg) Tablet Oral at bedtime PRN CeleXA 1 (20 mg) Tablet Oral daily Docusate Sodium 1 Capsule Oral daily PRN Femara 1 (2.5 mg) Tablet Oral daily Hydrochlorothiazide 1 (25 mg) Tablet Oral daily Ibrance 1 (75 mg) Capsule Oral daily Metoprolol Succinate ER 1 (50 mg) Tablet SR 24 HR Oral daily Pantoprazole Sodium 1 Tablet (of 40 mg) Tablet, enteric coated Oral daily Pure CBD 1 Capsule daily Ventolin HFA Aerosol, solution Inhalation PRN ZyrTEC Allergy Capsule Oral daily Family History: Ms. Robert's mother at age 93: liver disease. Ms. Robert's father at age 61: heart attack. Ms. Robert has 1 sister who is alive. Breast cancer in maternal aunt, stomach cancer in paternal grandfather, prostate cancer in maternal grandfather. Social History: Ms. Robert is and she is retired. Ms. Robert has never smoked. She drinks occasionally. Ms. Robert reports the following support systems: lives with spouse, significant other, family, or friends, lives in own house, supportive family/friends willing to assist with needs, and adequate transportation available for expected visits. Her diet consists of regular meals. She indicates her activity level as: daily activities and occasional exercise. patient has 1 glass of wine occasionally Retired elementary school band director. Physical Examination: Performed on Jul 28, 2021 11:41: Height - 68.00 in, Weight - 195.6 lbs (HIGH), BSA - 2.02 sq.m, BMI - 29.74, Temperature - 98.4 F, Pulse - 83 /min, Respiration - 20 /min, BP - 138/69 mm(hg), O2 Sat - 92 % (LOW), Pain - 0, and Fatigue - 6. Performance Status: 1 - No physically strenuous activity, but ambulatory and able to carry out light or sedentary work (e.g. office work, light house work). (ECOG) Constitutional Alert, cooperative, oriented. Mood and affect appropriate. Appears close to chronological age. Well nourished. Well developed. Head Normocephalic; no scars. Respiratory Lungs are clear to auscultation without rhonchi or wheezing. Cardiovascular Regular rate and rhythm of heart without murmurs, gallops or rubs. Abdomen Non-tender, non-distended, no masses, ascites or hepatosplenomegaly. Good bowel sounds. No guarding or rebound tenderness. Extremities No visible deformities, no cyanosis, clubbing or edema. Pulses 3+ and equal bilaterally. Musculoskeletal No tenderness or swelling, normal range of motion without obvious weakness. Psychiatric Alert and oriented times three. Coherent speech. Verbalizes understanding of our discussions today. Laboratory: Test performed on Jul 28, 2021 10:25 Sodium 141 mmol/L Vitamin D (25-Hydroxy), Total 20 ng/mL Potassium 3.9 mmol/L Chloride 104 mmol/L CO2 25 mmol/L Anion Gap 15.9 BUN 25 mg/dL Creatinine 1.1 mg/dL Cr Clearance (Est) 59.0400 mL/min Glucose 124 mg/dL Osmolality - Calculated 298 mOsm/kg Calcium 9.6 mg/dL Protein, Total 7.1 g/dL Albumin 4.3 g/dL Globulin 2.8 g/dL Bilirubin, Total 0.5 mg/dL ALT (SGPT) 11 U/L AST (SGOT) 12 U/L Alkaline Phosphatase 82 IU/L WBC 4.0 10 3/uL RBC 4.15 10 6/uL HGB 12.8 g/dL HCT 38.3 % MCV 92.3 fl MCH 30.8 pg MCHC 33.4 g/dL RDW 13.1 % Platelet Count 149 10 3/cmm MPV 9.2 fL Neutrophils 2.53 10 3/uL Lymphocytes 0.7 10 3/uL Monocytes 0.3 10 3/uL Eosinophils 0.4 10 3/uL Basophils 0.1 10 3/uL Neutrophil % 63.6 % Lymphocyte % 17.9 % Monocyte % 7.6 % Eosinophil % 9.3 % Basophils % 1.3 % NRBC % 0 % CA 15-3 19.6 U/mL Impression: 1. Stage IV breast cancer, ER/IA positive and HER-2 unknown. 2. She was previously treated for breast cancer in 1988 and for endometrial cancer in 2006. 3. Hypertension. 4. GERD. 5. She has symptoms of carpal tunnel syndrome bilaterally. Plan: Patient with stage IV breast cancer, ER/IA positive and HER-2 unknown. She had associated pulmonary metastatic disease, malignant left pleural effusion, mediastinal involvement, and metastatic bone lesions at initial diagnosis in July 2015. She had a very good response to treatment with letrozole in combination with palbociclib. She has tolerated the treatment well at a reduced dosage of palbociclib. At follow-up visit today patient is complaining of increased fatigue and shortness of breath. Her labs have remained stable. Her CA 15???3 is 19.8. Because of her increased shortness of breath we will obtain a PET scan to reevaluate.She will continue her treatment with letrozole 2.5 mg daily together with palbociclib 75 mg daily on a -day schedule. She will follow-up after PET scan has been completed. Signed By: Stephanie Dao N.P. <<Signature on File>>
== END 2021-07-28 09:34 | disposition home or self-care (01) ==
PROVIDERS: PCP Family Medicine; Visit Provider Internal Medicine Medical Oncology
DX: C50.812 Malignant neoplasm of overlapping sites of left female breast (principal); Z17.0 Estrogen receptor positive status [ER+]; C78.01 Secondary malignant neoplasm of right lung; C78.02 Secondary malignant neoplasm of left lung; J91.0 Malignant pleural effusion; C77.2 Secondary and unspecified malignant neoplasm of intra-abdominal lymph nodes; C79.51 Secondary malignant neoplasm of bone; R53.83 Other fatigue; R06.02 Shortness of breath; Z79.899 Other long term (current) drug therapy; Z79.818 Long term (current) use of other agents affecting estrogen receptors and estrogen levels
CPT/HCPCS: 36415; 80053; 82306; 85025; 86300; 99214

== ENCOUNTER 2021-12-20 13:42 | Oncology outpatient (recurring) (ONCR) | payer MEDICARE, SELFPAY ==
[2021-12-20 14:34] LABS: Basophils % 0.8 %; Eosinophils # 0.1 10^3/uL (0.0-0.8); Eosinophils % 1.4 %; Hematocrit 38.2 % (37.0-47.0); Lymphocytes # 0.9 10^3/uL (0.8-4.8); Lymphocytes % 17.6 %; Mean Corpuscular Hemoglobin 30.8 pg (28.0-34.0); Mean Corpuscular Volume 90.5 fl (81-99); Mean Platelet Volume 9.6 fL (7.4-10.4); Monocytes # 0.6 10^3/uL (0.2-0.9); Monocytes % 11.5 %; Neutrophils # 3.34 10^3/uL (1.8-7.7); Neutrophils % 68.5 %; Nucleated Red Blood Cells % 0 %; Platelet Count 208 10^3/cmm (130-400); Red Blood Count 4.22 10^6/uL (4.1-5.3); Red Cell Distribution Width 14.2 % (12.1-15.1); White Blood Count 4.9 10^3/uL (4.0-10.0)
[2021-12-20 14:52] LABS: Alanine Aminotransferase 8 U/L (0-33); Albumin Level 4.1 g/dL (3.5-5.2); Alkaline Phosphatase 86 IU/L (35-105); Blood Urea Nitrogen 24 mg/dL (8-23); Calcium 9.4 mg/dL (8.5-10.5); Carbon Dioxide 26 mmol/L (22-29); Globulin 2.8 g/dL (1.3-4.6); Glucose 91 mg/dL (65-115); Total Bilirubin 0.4 mg/dL (0.15-1.2); Total Protein 6.9 g/dL (6.6-8.7)
[2021-12-20 14:53] LABS: Potassium 4.2 mmol/L (3.5-5.1)
[2021-12-20 15:29] LABS: CA 15-3 19.5 U/mL (0-25)
[2021-12-20 15:30] LABS: Anion Gap 16.2 (5-19); Chloride 102 mmol/L (98-107); Osmolality Calculated 294 mOsm/kg (285-295); Sodium 140 mmol/L (136-145)
[2021-12-20 16:45] LABS: Aspartate Amino Transferase 13 U/L (0-32)
== END 2021-12-24 23:59 | disposition home or self-care (01) ==
LOC: ONCMED 13:43
PROVIDERS: Nurse Practitioner Family; PCP Family Medicine; Visit Provider Internal Medicine Medical Oncology
DX: C50.919 Malignant neoplasm of unspecified site of unspecified female breast (principal)
CPT/HCPCS: 36415; 80053; 85025; 86300

== ENCOUNTER 2021-12-25 09:28 | Oncology outpatient (recurring) (ONCR) | payer MEDICARE, SELFPAY | END 2022-01-24 23:59 | disposition home or self-care (01) | PROVIDERS: PCP Family Medicine; Visit Provider Internal Medicine Medical Oncology | DX: C50.919 Malignant neoplasm of unspecified site of unspecified female breast (principal); Z79.818 Long term (current) use of other agents affecting estrogen receptors and estrogen levels; C78.00 Secondary malignant neoplasm of unspecified lung; J91.0 Malignant pleural effusion; G56.03 Carpal tunnel syndrome, bilateral upper limbs | CPT/HCPCS: 99214 ==

== ENCOUNTER 2022-03-29 09:27 | Oncology outpatient (recurring) (ONCR) | payer MEDICARE, SELFPAY ==
[2022-03-29 09:58] LABS: Basophils # 0.1 10^3/uL (0.0-0.1); Basophils % 1.2 %; Eosinophils # 0.1 10^3/uL (0.0-0.8); Eosinophils % 2.7 %; Hematocrit 40.4 % (37.0-47.0); Hemoglobin 13.4 g/dL (11.5-15.3); Lymphocytes % 20.4 %; Mean Corpuscular HGB Conc 33.2 g/dL (30.0-36.0); Mean Corpuscular Volume 93.5 fl (81-99); Mean Platelet Volume 9.3 fL (7.4-10.4); Monocytes # 0.5 10^3/uL (0.2-0.9); Monocytes % 9.8 %; Neutrophils # 3.15 10^3/uL (1.8-7.7); Neutrophils % 65.5 %; Nucleated Red Blood Cells % 0 %; Platelet Count 222 10^3/cmm (130-400); Red Blood Count 4.32 10^6/uL (4.1-5.3); Red Cell Distribution Width 13.7 % (12.1-15.1); White Blood Count 4.8 10^3/uL (4.0-10.0)
[2022-03-29 10:35] LABS: 25 Hydroxy Vitamin D 26 ng/mL (30-100); Alanine Aminotransferase 9 U/L (0-33); Albumin Level 4.4 g/dL (3.5-5.2); Alkaline Phosphatase 85 U/L (35-105); Anion Gap 14.9 (5-19); Aspartate Amino Transferase 12 U/L (0-32); Blood Urea Nitrogen 27 mg/dL (8-23); CA 15-3 23.4 U/mL (0-25); Calcium 9.4 mg/dL (8.5-10.5); Carbon Dioxide 27 mmol/L (22-29); Chloride 101 mmol/L (98-107); Globulin 2.7 g/dL (1.3-4.6); Glucose 110 mg/dL (65-115); Osmolality Calculated 294 mOsm/kg (285-295); Potassium 3.9 mmol/L (3.5-5.1); Sodium 139 mmol/L (136-145); Total Bilirubin 0.4 mg/dL (0.15-1.2); Total Protein 7.1 g/dL (6.6-8.7)
== END 2022-04-25 23:59 | disposition home or self-care (01) ==
PROVIDERS: PCP Family Medicine; Visit Provider Internal Medicine Medical Oncology
DX: C50.812 Malignant neoplasm of overlapping sites of left female breast; C78.01 Secondary malignant neoplasm of right lung; C78.02 Secondary malignant neoplasm of left lung; J91.0 Malignant pleural effusion; C77.2 Secondary and unspecified malignant neoplasm of intra-abdominal lymph nodes; C79.51 Secondary malignant neoplasm of bone; R53.0 Neoplastic (malignant) related fatigue; Z79.818 Long term (current) use of other agents affecting estrogen receptors and estrogen levels; Z79.899 Other long term (current) drug therapy; Z17.0 Estrogen receptor positive status [ER+]; Z23 Encounter for immunization
CPT/HCPCS: 36415; 80053; 82306; 85025; 86300; 90471; 90686; 99214

== ENCOUNTER → 2022-07-30 13:00 | Outpatient (BNVA) | payer MEDICARE, SELFPAY | PROVIDERS: PCP Family Medicine; Visit Provider Specialist | DX: M17.0 Bilateral primary osteoarthritis of knee (principal); M11.262 Other chondrocalcinosis, left knee; M11.261 Other chondrocalcinosis, right knee | CPT/HCPCS: 20610; 73560; 73565; 99204; J1100; J2795; J3301 ==

== ENCOUNTER → 2022-09-10 15:14 | Outpatient (BNVA) | payer MEDICARE, SELFPAY | PROVIDERS: PCP Family Medicine; Visit Provider Specialist | DX: M17.0 Bilateral primary osteoarthritis of knee (principal) | CPT/HCPCS: 99213 ==

== ENCOUNTER 2022-09-12 12:09 | Oncology outpatient (recurring) (ONCR) | payer MEDICARE, SELFPAY ==
[2022-09-12 12:40] LABS: Basophils # 0.1 10^3/uL (0.0-0.1); Basophils % 0.6 %; Eosinophils # 0.2 10^3/uL (0.0-0.8); Eosinophils % 2.3 %; Hematocrit 38.5 % (37.0-47.0); Hemoglobin 12.5 g/dL (11.5-15.3); Lymphocytes # 1.2 10^3/uL (0.8-4.8); Lymphocytes % 14.9 %; Mean Corpuscular HGB Conc 32.5 g/dL (30.0-36.0); Mean Corpuscular Hemoglobin 28.9 pg (28.0-34.0); Mean Corpuscular Volume 89.1 fl (81-99); Mean Platelet Volume 9.5 fL (7.4-10.4); Monocytes # 0.6 10^3/uL (0.2-0.9); Monocytes % 7.4 %; Neutrophils # 5.85 10^3/uL (1.8-7.7); Neutrophils % 74.5 %; Nucleated Red Blood Cells % 0 %; Platelet Count 199 10^3/cmm (130-400); Red Blood Count 4.32 10^6/uL (4.1-5.3); Red Cell Distribution Width 12.6 % (12.1-15.1); White Blood Count 7.9 10^3/uL (4.0-10.0)
[2022-09-12 13:18] LABS: 25 Hydroxy Vitamin D 52 ng/mL (30-100); Alanine Aminotransferase 11 U/L (0-33); Alkaline Phosphatase 103 U/L (35-105); Anion Gap 14.3 (5-19); Aspartate Amino Transferase 14 U/L (0-32); Blood Urea Nitrogen 28 mg/dL (8-23); CA 15-3 19.3 U/mL (0-25); Calcium 8.8 mg/dL (8.5-10.5); Carbon Dioxide 27 mmol/L (22-29); Chloride 103 mmol/L (98-107); Globulin 2.7 g/dL (1.3-4.6); Glucose 124 mg/dL (65-115); Osmolality Calculated 297 mOsm/kg (285-295); Potassium 4.3 mmol/L (3.5-5.1); Sodium 140 mmol/L (136-145); Total Bilirubin 0.3 mg/dL (0.15-1.2); Total Protein 6.7 g/dL (6.6-8.7)
== END 2022-09-23 23:59 | disposition home or self-care (01) ==
PROVIDERS: PCP Family Medicine; Visit Provider Internal Medicine Medical Oncology
DX: C50.812 Malignant neoplasm of overlapping sites of left female breast (principal); Z17.0 Estrogen receptor positive status [ER+]; C78.01 Secondary malignant neoplasm of right lung; C78.02 Secondary malignant neoplasm of left lung; J91.0 Malignant pleural effusion; C77.2 Secondary and unspecified malignant neoplasm of intra-abdominal lymph nodes; C79.51 Secondary malignant neoplasm of bone; R53.0 Neoplastic (malignant) related fatigue; Z79.818 Long term (current) use of other agents affecting estrogen receptors and estrogen levels; Z79.899 Other long term (current) drug therapy; L98.9 Disorder of the skin and subcutaneous tissue, unspecified
CPT/HCPCS: 36415; 80053; 82306; 85025; 86300; 99214

== ENCOUNTER → 2022-10-04 10:48 | Outpatient (BNVA) | payer MEDICARE, SELFPAY | PROVIDERS: PCP Family Medicine; Referring Provider Internal Medicine Medical Oncology; Visit Provider Dermatology | DX: D22.4 Melanocytic nevi of scalp and neck (principal); D04.39 Carcinoma in situ of skin of other parts of face; D04.72 Carcinoma in situ of skin of left lower limb, including hip; D04.61 Carcinoma in situ of skin of right upper limb, including shoulder; L81.4 Other melanin hyperpigmentation; L57.8 Other skin changes due to chronic exposure to nonionizing radiation; L82.1 Other seborrheic keratosis; D23.62 Other benign neoplasm of skin of left upper limb, including shoulder | CPT/HCPCS: 11103; 11104; 99203 ==

== ENCOUNTER → 2022-10-15 15:15 | Outpatient (BNVA) | payer MEDICARE, SELFPAY | PROVIDERS: PCP Family Medicine; Visit Provider Dermatology | DX: Z48.02 Encounter for removal of sutures (principal); C44.729 Squamous cell carcinoma of skin of left lower limb, including hip; C44.622 Squamous cell carcinoma of skin of right upper limb, including shoulder; C44.329 Squamous cell carcinoma of skin of other parts of face | CPT/HCPCS: 99213 ==

== ENCOUNTER 2022-12-27 12:29 | Oncology outpatient (recurring) (ONCR) | payer MEDICARE, SELFPAY ==
[2022-12-27 13:07] VITALS: BP 160/95; PULSE 82; RESP 17; TEMP 36.7; O2SAT 95
[2022-12-27 13:33] LABS: Basophils # 0.1 10^3/uL (0.0-0.1); Basophils % 1.7 %; Eosinophils # 0.1 10^3/uL (0.0-0.8); Hematocrit 38.6 % (37.0-47.0); Hemoglobin 12.4 g/dL (11.5-15.3); Lymphocytes % 18.9 %; Mean Corpuscular HGB Conc 32.1 g/dL (30.0-36.0); Mean Corpuscular Volume 90.4 fl (81-99); Mean Platelet Volume 9.6 fL (7.4-10.4); Monocytes # 0.5 10^3/uL (0.2-0.9); Monocytes % 9.7 %; Neutrophils # 3.65 10^3/uL (1.8-7.7); Neutrophils % 67.1 %; Nucleated Red Blood Cells % 0 %; Platelet Count 222 10^3/cmm (130-400); Red Blood Count 4.27 10^6/uL (4.1-5.3); Red Cell Distribution Width 14.7 % (12.1-15.1); White Blood Count 5.4 10^3/uL (4.0-10.0)
[2022-12-27 14:04] LABS: Alanine Aminotransferase 11 U/L (0-33); Albumin Level 3.8 g/dL (3.5-5.2); Alkaline Phosphatase 95 U/L (35-105); Anion Gap 15.5 (5-19); Aspartate Amino Transferase 13 U/L (0-32); Blood Urea Nitrogen 27 mg/dL (8-23); Calcium 9.2 mg/dL (8.5-10.5); Carbon Dioxide 28 mmol/L (22-29); Chloride 101 mmol/L (98-107); Globulin 2.6 g/dL (1.3-4.6); Glucose 129 mg/dL (65-115); Osmolality Calculated 299 mOsm/kg (285-295); Potassium 3.5 mmol/L (3.5-5.1); Sodium 141 mmol/L (136-145); Total Bilirubin 0.5 mg/dL (0.15-1.2); Total Protein 6.4 g/dL (6.6-8.7)
[2022-12-27 15:10] LABS: Thyroid Stimulating Hormone 0.54 uIU/mL (0.27-4.20)
== END 2023-01-24 23:59 | disposition home or self-care (01) ==
PROVIDERS: PCP Family Medicine; Visit Provider Internal Medicine Medical Oncology
DX: C78.1 Secondary malignant neoplasm of mediastinum (principal); C79.51 Secondary malignant neoplasm of bone; C78.02 Secondary malignant neoplasm of left lung; J91.0 Malignant pleural effusion; Z85.3 Personal history of malignant neoplasm of breast; Z85.42 Personal history of malignant neoplasm of other parts of uterus; Z79.811 Long term (current) use of aromatase inhibitors; Z90.13 Acquired absence of bilateral breasts and nipples; Z90.710 Acquired absence of both cervix and uterus; Z90.722 Acquired absence of ovaries, bilateral
CPT/HCPCS: 36415; 80053; 84443; 85025; 86300; 99214

== ENCOUNTER 2023-04-02 09:42 | Oncology outpatient (recurring) (ONCR) | payer MEDICARE, SELFPAY ==
[2023-04-02 10:32] LABS: Basophils % 0.6 %; Eosinophils # 0.1 10^3/uL (0.0-0.8); Eosinophils % 1.9 %; Hematocrit 39.7 % (36-47); Lymphocytes # 1.2 10^3/uL (0.8-4.8); Lymphocytes % 18.3 %; Mean Corpuscular HGB Conc 32.7 g/dL (30-55); Mean Corpuscular Hemoglobin 30.3 pg (27-33); Mean Corpuscular Volume 92.5 fl (85-98); Mean Platelet Volume 9.4 fL (7.4-10.4); Monocytes # 0.6 10^3/uL (0.2-0.9); Monocytes % 8.9 %; Neutrophils # 4.73 10^3/uL (1.8-7.7); Nucleated Red Blood Cells % 0 %; Platelet Count 245 10^3/cmm (157-399); Red Blood Count 4.29 10^6/uL (3.85-5.65); Red Cell Distribution Width 13.8 % (12.1-15.1); White Blood Count 6.76 10^3/uL (3.29-11.43)
[2023-04-02 10:52] LABS: Alanine Aminotransferase 17 U/L (0-33); Albumin Level 4.4 g/dL (3.5-5.2); Alkaline Phosphatase 102 U/L (35-105); Aspartate Amino Transferase 19 U/L (0-32); Blood Urea Nitrogen 31 mg/dL (8-23); Calcium 9.6 mg/dL (8.5-10.5); Carbon Dioxide 28 mmol/L (22-29); Chloride 100 mmol/L (98-107); Globulin 2.6 g/dL (1.3-4.6); Glucose 123 mg/dL (65-115); Osmolality Calculated 300 mOsm/kg (285-295); Sodium 141 mmol/L (136-145); Total Bilirubin 0.5 mg/dL (0.15-1.2)
[2023-04-02 11:16] LABS: CA 15-3 31.8 U/mL (0-25)
== END 2023-04-25 23:59 | disposition home or self-care (01) ==
PROVIDERS: PCP Family Medicine; Visit Provider Internal Medicine Medical Oncology
DX: C78.1 Secondary malignant neoplasm of mediastinum (principal); C79.51 Secondary malignant neoplasm of bone; C78.02 Secondary malignant neoplasm of left lung; J91.0 Malignant pleural effusion; Z85.3 Personal history of malignant neoplasm of breast; Z85.42 Personal history of malignant neoplasm of other parts of uterus; Z79.811 Long term (current) use of aromatase inhibitors; Z90.13 Acquired absence of bilateral breasts and nipples; Z90.710 Acquired absence of both cervix and uterus; Z90.722 Acquired absence of ovaries, bilateral; C50.812 Malignant neoplasm of overlapping sites of left female breast; Z17.0 Estrogen receptor positive status [ER+]; C78.01 Secondary malignant neoplasm of right lung; C77.2 Secondary and unspecified malignant neoplasm of intra-abdominal lymph nodes; R53.0 Neoplastic (malignant) related fatigue; Z79.818 Long term (current) use of other agents affecting estrogen receptors and estrogen levels; Z79.899 Other long term (current) drug therapy; Z23 Encounter for immunization
CPT/HCPCS: 36415; 80053; 85025; 86300; 99214

== ENCOUNTER 2023-04-25 09:17 | Outpatient (CLI) | payer MEDICARE, SELFPAY ==
--- NOTE | 2023-04-25 09:30 | NM_ITS ---
WS: [id number] NUCLEAR MEDICINE WHOLE BODY BONE SCAN HISTORY: restaging COMPARISON: None available. TECHNIQUE: The patient was injected with 24.9 mCi of Technetium 99m HDP and serial whole-body scintig lucretia have been performed with anterior and posterior images. Single focus of increased uptake in the posterior LEFT eighth rib. Increased uptake in the region of the RIGHT T8 vertebral body. Vague focus of increased uptake in the mid RIGHT femoral diaphysis. Ther e is a focal area of moderate increased uptake involving the LEFT posterior ilium. Subtle area of inc reased uptake in the LEFT acetabulum. Mild degenerative changes at the before meals and glenohumeral joints. Bilateral hip and ankle arthri tis. Normal soft tissue uptake. There are foci of increased uptake within each kidney which may be re lated to collection of the radionuclide in the calyces. IMPRESSION: 1. Multifocal areas highly suspicious for osseous metastatic disease involving the LEFT posterior eig hth rib, RIGHT T8 vertebral body, mid RIGHT femoral diaphysis, LEFT acetabulum and the LEFT ilium. Re commend further evaluation. PET/CT may be of benefit.
[2023-04-25] MEDS: barium sulfate 450 mL Oral Susp PO (12:24)
--- NOTE | 2023-04-25 12:30 | CT_ITS ---
WS: [id number] CT CHEST, ABDOMEN, AND PELVIS TECHNIQUE: Contrast-enhanced CT of the chest, abdomen, and pelvis with coronal and sagittal reformatt ed images. CLINICAL INFORMATION: restaging COMPARISON: CT chest 02/11/2020 and PET/CT 11/19/2019 DLP: 1002.[address] scans at [facility] use at least one of these dose optimization techniques: automated e xposure control; mA and/or kV adjustment per patient size (includes targeted exams where dose is matc hed to clinical indication); or iterative reconstruction. CT CHEST: Bilateral breast implants. Normal caliber thoracic aorta. Aortic calcification. Proximal main pulmona ry arteries are normal. New soft tissue mass/lymphadenopathy LEFT lower AP window measuring 2.3 x 2.3 cm. In addition new LEFT lower lobe mass along the inferior hilum measuring 3.5 x 3.6 cm with associ ated subtotal consolidation LEFT lower lobe with narrowing of the LEFT lower lobe bronchi. Small amou nt of pleural fluid LEFT lower lobe with atelectasis. A few small nodules in the LEFT lower lobe laterally and in the lingula. Innumerable subcentimeter p ulmonary nodules throughout both lungs worse in the upper lobes. Largest nodules measure approximatel y 8 mm in the LEFT upper lobe. Trace RIGHT pleural fluid. RIGHT basilar atelectasis. A few sclerotic lesions in the LEFT eighth posterior rib. Volume loss LEFT lower lobe. Obstruction of the LEFT lower lobe bronchi. CT ABDOMEN AND PELVIS: Prior hysterectomy. Cholecystectomy. Numerous mottled blastic and sclerotic lesions throughout the th oracic spine lumbar spine and bony pelvis. This is worse involving the LEFT iliac wing. Findings comp atible with metastatic disease. Additional lesions extend into the pubic rami and proximal femurs. Diffuse fatty infiltration of the liver. Prior cholecystectomy. Large LEFT lower pole renal cyst geno uring 9.8 x 8.2 cm. Fatty atrophy of the pancreas. Splenic granulomas. Normal GE junction. Normal por vikash vein and splenic vein. Normal caliber abdominal aorta. Mild aortic calcification. Adrenal glands are normal. No periaortic lymphadenopathy. Normal sigmoid colon. Normal appendix in the RIGHT lower quadrant. Tiny fat-containing umbilical sin ia. Normal renal parenchymal enhancement. Additional small bilateral renal cysts. No pelvic or inguin al lymphadenopathy. IMPRESSION: 1. Innumerable subcentimeter metastatic nodules throughout both lungs. 2. Soft tissue mass/lymphadenopathy LEFT AP window measuring 2.3 x 2.3 cm. 3. LEFT infrahilar soft tissue mass adjacent to the descending thoracic aorta measuring 3.5 x 3.6 cm with obstruction of the LEFT lower lobe bronchi. Associated subtotal consolidation in the LEFT lower lobe with associated pleural fluid and atelectasis. 4. Innumerable blastic and sclerotic metastatic lesions throughout the visualized bony structures in cluding the thoracic spine, lumbar spine, bony pelvis, and extending into the proximal femurs. Larges t confluent lesion involves the LEFT iliac wing with areas of lytic lucency and sclerosis. 5. Diffuse fatty infiltration of the liver. 6. Small esophageal hiatal hernia. 7. Large LEFT lower pole renal cyst measuring 9.8 x 8.2 cm. No hydronephrosis.
[2023-04-25] MEDS: iohexol 350 mg/mL 500 mL Btl (per mL) IV (13:16)
== END 2023-04-25 09:18 | disposition home or self-care (01) ==
LOC: RAD 09:17
PROVIDERS: PCP Family Medicine; Visit Provider Nurse Practitioner Family
DX: C50.919 Malignant neoplasm of unspecified site of unspecified female breast (principal); C78.02 Secondary malignant neoplasm of left lung; C78.01 Secondary malignant neoplasm of right lung; C79.51 Secondary malignant neoplasm of bone; M79.9 Soft tissue disorder, unspecified; J98.09 Other diseases of bronchus, not elsewhere classified; J98.11 Atelectasis; K76.0 Fatty (change of) liver, not elsewhere classified
CPT/HCPCS: 71260; 74177; 78306; A9561; Q9967

== ENCOUNTER 2023-05-02 13:05 | Oncology outpatient (recurring) (ONCR) | payer MEDICARE, SELFPAY ==
[2023-05-02 13:30] VITALS: BP 144/69; PULSE 82; RESP 16; TEMP 36.8; O2SAT 92
[2023-05-02 13:43] LABS: Basophils % 0.3 %; Eosinophils # 0.2 10^3/uL (0.0-0.8); Eosinophils % 2.6 %; Hematocrit 40.1 % (36-47); Lymphocytes # 1.3 10^3/uL (0.8-4.8); Lymphocytes % 14.9 %; Mean Corpuscular HGB Conc 32.4 g/dL (30-55); Mean Corpuscular Hemoglobin 29.5 pg (27-33); Mean Corpuscular Volume 91.1 fl (85-98); Mean Platelet Volume 9.8 fL (7.4-10.4); Monocytes # 0.7 10^3/uL (0.2-0.9); Monocytes % 7.5 %; Neutrophils # 6.47 10^3/uL (1.8-7.7); Neutrophils % 74.2 %; Nucleated Red Blood Cells % 0 %; Platelet Count 206 10^3/cmm (157-399); Red Cell Distribution Width 13.1 % (12.1-15.1); White Blood Count 8.72 10^3/uL (3.29-11.43)
[2023-05-02 14:12] LABS: Alanine Aminotransferase 17 U/L (0-33); Alkaline Phosphatase 100 U/L (35-105); Anion Gap 16.2 (5-19); Aspartate Amino Transferase 22 U/L (0-32); Blood Urea Nitrogen 19 mg/dL (8-23); CA 15-3 27.4 U/mL (0-25); Calcium 9.5 mg/dL (8.5-10.5); Carbon Dioxide 25 mmol/L (22-29); Chloride 103 mmol/L (98-107); Globulin 2.9 g/dL (1.3-4.6); Glucose 126 mg/dL (65-115); Osmolality Calculated 294 mOsm/kg (285-295); Potassium 4.2 mmol/L (3.5-5.1); Sodium 140 mmol/L (136-145); Total Bilirubin 0.4 mg/dL (0.15-1.2); Total Protein 6.9 g/dL (6.6-8.7)
== END 2023-05-26 23:59 | disposition home or self-care (01) ==
PROVIDERS: Internal Medicine; PCP Family Medicine; Visit Provider Internal Medicine Medical Oncology
DX: C78.1 Secondary malignant neoplasm of mediastinum (principal); C79.51 Secondary malignant neoplasm of bone; C78.02 Secondary malignant neoplasm of left lung; J91.0 Malignant pleural effusion; Z85.3 Personal history of malignant neoplasm of breast; Z85.42 Personal history of malignant neoplasm of other parts of uterus; Z79.811 Long term (current) use of aromatase inhibitors; Z90.13 Acquired absence of bilateral breasts and nipples; Z90.710 Acquired absence of both cervix and uterus; Z90.722 Acquired absence of ovaries, bilateral; C50.812 Malignant neoplasm of overlapping sites of left female breast; Z17.0 Estrogen receptor positive status [ER+]; C78.01 Secondary malignant neoplasm of right lung; C77.2 Secondary and unspecified malignant neoplasm of intra-abdominal lymph nodes; R53.0 Neoplastic (malignant) related fatigue; Z79.818 Long term (current) use of other agents affecting estrogen receptors and estrogen levels; Z79.899 Other long term (current) drug therapy; Z23 Encounter for immunization
CPT/HCPCS: 36415; 80053; 85025; 86300; 99215

== ENCOUNTER 2023-05-16 10:48 | Outpatient (CLI) | payer MEDICARE, SELFPAY ==
--- NOTE | 2023-05-16 11:45 | USCV_ITS ---
Brooke Robert Age: 77 Gender: F : 1945 Exam Date: 05/16/2023 11:10 Ordering Phys: Lissa James MD Technologist: Guillermo Sheriff Exam Location: [facility] [place] Indication: sob BP: 150 / 80 HR: 76 Rhythm: Sinus Technical Quality: Technically difficult study MEASUREMENTS (Male / Female) Normal Values 2D ECHO LV Diastolic Diameter PLAX 3.4 cm 4.2 - 5.9 / 3.9 - 5.3 cm LV Systolic Diameter PLAX 2.0 cm IVS Diastolic Thickness 1.3 cm 0.6 - 1.0 / 0.6 - 0.9 cm IVS Systolic Thickness 1.7 cm LVPW Diastolic Thickness 1.0 cm 0.6 - 1.0 / 0.6 - 0.9 cm LVPW Systolic Thickness 1.6 cm LVOT Diameter 2.0 cm LV Ejection Fraction 2D Teich 72.8 % LV Ejection Fraction MOD 2C 57.7 % LV Ejection Fraction 2C AL 59.0 % LA Diameter 3.7 cm M-MODE Aortic Annulus Diameter 3.6 cm LA Ao Ratio MM 1.2 MV E Point Septal Separation 0.9 cm DOPPLER AV Peak Velocity 130.0 cm/s LVOT Peak Velocity 77.0 cm/s AV Area Cont Eq vti 1.7 cm squared AV Area Cont Eq pk 1.9 cm squared TR Peak Velocity 138.7 cm/s TR Peak Gradient 7.7 mmHg TV Peak E Velocity 83.0 cm/s Right Atrial Pressure 3.0 mmHg Pulmonary Artery Systolic Pressu 10.7 mmHg FINDINGS Left Ventricle Possibly normal LV size with a borderline low ejection fraction of 50-55%. Relative hypokinesia of the septum. Segmental wall motion analysis difficult since there was no apical window only parasternal and epigastric views are obtained Right Ventricle Possibly of normal size Right Atrium Possibly of normal size Left Atrium Mildly increased left atrial size. Mitral Valve Trace mitral valve regurgitation. Aortic Valve No gross abnormalities noted . Tricuspid Valve No gross abnormalities noted . Pulmonic Valve Pulmonic valve not well visualized. Pericardium No pericardial effusion. Aorta Normal aortic annulus size. IVC Inferior vena cava not visualized. CONCLUSIONS Possibly normal LV size with a borderline low ejection fraction of 50-55%. Relative hypokinesia of the septum. Segmental wall motion analysis difficult since there was no apical window.( only parasternal and epigastric views are obtained. ) Trace mitral valve regurgitation. There is no pericardial effusion. Technically very limited study Dr Mary Lindsey MD [facility] (Electronically Signed) Final Date: 16 May 2023 17:36 S
== END 2023-05-16 10:49 | disposition home or self-care (01) ==
LOC: RAD 10:49
PROVIDERS: PCP Family Medicine; Visit Provider Internal Medicine
DX: I34.0 Nonrheumatic mitral (valve) insufficiency (principal); R06.02 Shortness of breath
CPT/HCPCS: 93306

== ENCOUNTER 2023-05-28 10:46 | Outpatient (CLI) | payer MEDICARE, SELFPAY ==
--- NOTE | 2023-05-28 | PET_ITS ---
[facility] Final Radiology Report Call: [phone] assistance Online chat: [email or web address] Name: CHARLIE BETANCOURT Age: 77Years F Date: 05/28/2023 SSN: -- : [id number] Study: PET/CT SKULL BASE TO MID THIGH Requesting Physician: MICKEY VERGARA Images: [id number] Add?l Studies: Provided Clinical History: re staging PROCEDURE INFORMATION: Exam: PET/CT Skull Base to Mid-thigh Exam date and time: 05/28/2023 11:38 AM Age: 77 years old Clinical indication: Condition or disease; Primary cancer: Breast cancer, secondary malignant neoplasm of the bone; Follow-up oncological assessment; Additional info: Re staging LABS AND CLINICAL REPORTS: Glucose: 126 mg/dl Treatment strategy for malignancy (PET staging): Restaging (PS) TECHNIQUE: Imaging protocol: Following at least four-hour fasting and following the injection of radiopharmaceutical, low dose CT images were obtained. Then, PET images were obtained. Attenuation corrected images were constructed using the CT scan. Fused images of PET and CT were reviewed. The standardized uptake values (SUV) reported below are maximum values within a region of interest, expressed in gm/ml. Exam includes orbital meatal line to mid-thigh. Radiopharmaceutical: 11.8 mCi F-18 FDG (Fluorodeoxyglucose), IV. Time of imaging post radiopharmaceutical administration: 1 hour Injection site: Not specified COMPARISON: CT chest, abdomen and pelvis 04/25/2023, NM bone scan whole body* [id number] 04/25/2023 9:30 AM, PET-CT 11/19/2019 FINDINGS: Brain: Visualized brain has normal physiologic uptake. Dental: There is elevated uptake in the left mandible which appears to be associated with lucency surrounding the apex of the most posterior mandibular tooth in this region, SUV max 4.6. Assessment is limited by the presence of dental metallic hardware. Pharynx: No abnormal uptake. Larynx: No abnormal uptake. Thyroid: A focus of elevated uptake along the superior margin of the left thyroid gland is noted, SUV max 4.5 on series 3, image 48 without evidence of a corresponding lesion on the CT images. This may be artifactual. Lungs, pleura and trachea: Small left greater than right pleural effusions are noted. A soft tissue density posteromedial left lower lobe/left perihilar region of masslike density is noted measuring up to approximately 4.0 x 3.8 cm in the axial plane on series 3, image 92, SUV max 7.2 (previously 4.1). This appears similar in size compared with the prior CT of 04/25/2023 and appears significantly increased in size since the prior PET-CT where it measured approximately 1.2 cm. . Patchy areas of what appear to represent new consolidation or atelectasis distal to the mass in the left lower lobe are noted with regions of elevated uptake which are greatest medially, SUV max 4.0 on series 3, image 99. Numerous solid bilateral pulmonary nodules are present which appears similar in size, number and distribution compared with the CT of 04/25/2023, several of which are new since the prior PETCT. The largest of these nodules demonstrate low-level uptake in the dominant nodule which measures 9-10 mm in the anterior left upper lobe on series 3, image 70, SUV max 1.9. Heart: Normal physiologic uptake. Mediastinal space: No abnormal uptake. Liver: No abnormal uptake. Previously suspected uptake in the anterior liver on the prior PET-CT is no longer identified. Gallbladder and bile ducts: No abnormal uptake. Cholecystectomy clips are present. Pancreas: No abnormal uptake. Spleen: No abnormal uptake. Calcified granulomas of the spleen are present. Adrenal glands: No abnormal uptake. Kidneys and ureters: Normal physiologic uptake. A similar non radiotracer avid simple appearing cyst arises exophytically from the inferior pole of the left kidney measuring 8.6 cm in diameter. Unremarkable right kidney. Stomach and bowel: A small focus of elevated uptake is identified in the lateral wall of the rectum, SUV max 13.8 associated with an apparent soft tissue nodule in this region measuring 1.5 cm in diameter on series 3, image 220. Vasculature: No abnormal uptake. Lymph nodes: Small calcified pretracheal and precarinal lymph nodes are noted without elevated uptake. A soft tissue density noncalcified structure compatible with a lymph node or mass is similar in the aortopulmonary window compared with 04/25/2023, new compared with 02/11/2020 measuring approximately 3.0 x 3.7 cm is triangular in configuration on series 3, image 77, SUV max 6.3. In Bones/joints: Radiotracer avid osseous lesions are new since the prior PET-CT as follows: In a region of sclerosis in the C2 vertebral body measuring 1.5 cm in diameter on series 3 image 27, SUV max 4.4; T8 vertebral body on the right where there is an ovoid 1.6 x 1.2 cm sclerotic lesion on series 3 image 93, SUV max 3.8; in the superior endplate of T12 where there is an 8 mm sclerotic density on series 3, image 127, SUV max 3.1; in the superior endplate of L3 corresponding to a sclerotic density measuring 1.1 cm in diameter on series 3, image 154, SUV max 4.0; in the left lateral aspect of the superior endplate of L4 where there is evidence of a Schmorl's node or old compression fracture without a well-defined lesion on the CT images, SUV max 4.0, within a region of mottled mixed lucency and sclerosis in the medial left iliac bone measuring 6.9 x 2.3 cm on series 3, image 182, SUV max 6.2. An additional focus of uptake is identified in the distal shaft of the left humerus on series 3, image 111 well a well-defined lesion on the CT images, SUV max 4.5. Soft tissues: No abnormal uptake in the visualized head, neck, chest, abdomen, pelvis, and extremities. Bilateral breast implants are noted with evidence of possible collapse of the inner membrane of the left breast implant. There are surgical clips along the bilateral pelvic sidewalls. METRICS: Mediastinal blood pool: SUV max 2.6 IMPRESSION: 1. Findings are consistent with interval progression of disease. 2. Significant interval increase in size of a soft tissue density mass in the posterior left inferior hilar region compared with the prior PET-CT, compatible with malignancy. Interval development of adjacent left lower lobe consolidation with low level uptake since the prior CT of 04/25/2023 which may be related to atelectasis or infectious infiltrate. 3. Interval increase in number of pulmonary nodule since the prior PET-CT, similar compared with 04/25/2023. Only the dominant left upper lobe nodule demonstrates low-level activity, however assessment of small nodules can be limited by PET-CT and metastases involving all these nodules cannot be excluded. 4. Prominent soft tissue density triangular mass or lymph node in the aortopulmonary window which is new since the prior PET-CT with elevated uptake consistent with malignancy. 5. Interval development of numerous radiotracer avid osseous lesions since the prior PET-CT compatible with metastases with the exception of uptake in the superior endplate of L4 which may be related to inflammatory changes within a Schmorl's node. 6. A focus of elevated uptake is identified in the region of the lateral wall of the rectum where there appears to be a soft tissue density nodule for malignancy cannot be excluded. 7. Uptake in the region of the apex of the most posterior left mandibular tooth may be artifactual or related to periodontal disease. A malignant etiology is not favored. 8. Additional nonurgent findings as detailed above. Thank you for allowing us to participate in the care of your patient. Dictated and Authenticated by: Adeline Gibson MD 05/29/2023 4:26 PM Central Time ([place] & [place]) BROCK
== END 2023-05-28 10:47 | disposition home or self-care (01) ==
PROVIDERS: Family Provider Internal Medicine Medical Oncology; PCP Family Medicine; Visit Provider Internal Medicine
DX: C79.51 Secondary malignant neoplasm of bone (principal); C50.919 Malignant neoplasm of unspecified site of unspecified female breast; R91.8 Other nonspecific abnormal finding of lung field; R93.89 Abnormal findings on diagnostic imaging of other specified body structures; R93.3 Abnormal findings on diagnostic imaging of other parts of digestive tract
CPT/HCPCS: 78815; A9552

== ENCOUNTER → 2023-06-18 12:06 | Outpatient (BNVA) | payer MEDICARE, SELFPAY | PROVIDERS: Family Provider Internal Medicine Medical Oncology; PCP Family Medicine; Referring Provider Internal Medicine; Visit Provider Internal Medicine Pulmonary Disease | DX: R91.8 Other nonspecific abnormal finding of lung field (principal); C79.81 Secondary malignant neoplasm of breast; C78.2 Secondary malignant neoplasm of pleura; Z85.42 Personal history of malignant neoplasm of other parts of uterus | CPT/HCPCS: 99204 ==

== ENCOUNTER 2023-06-24 05:29 | Day surgery (SDC) | payer MEDICARE, SELFPAY ==
[2023-06-24] VITALS (18 sets, daily range): BP systolic 122–157; BP diastolic 56–95; PULSE 74–98; RESP 16–29; TEMP 36.2–36.7; O2SAT 86–100; BMI 29.3
--- NOTE | 2023-06-24 05:45 | CT_ITS ---
WS: [id number] CT CHEST ION HISTORY: for left lower lung biopsies Technique: All CT scans at [facility] use at least one of these dose optimization techniques: automated exposure control; mA and/or kV adjustment per patient size (includes targeted exams where dose is matched to clinical indication); or iterative reconstruction. DLP: 413.18 mg COMPARISON: 04/25/2023 Axial imaging is performed through the chest for navigational bronchoscopy guidance purposes. There a re multiple numerous bilateral and multilobar pulmonary nodules. There is a large soft tissue mass ce ntered at the LEFT hilum which is previously described. Small LEFT pleural effusion with slight incre ase in size since the prior exam. There is also a very small RIGHT pleural effusion. Mild fullness at the RIGHT hilum. Bilateral breast implants. Mild atherosclerosis aorta. Prior cholecystectomy. No adrenal mass. IMPRESSION: 1. CT provided for navigational bronchoscopy purposes only. 2. Reidentified are multiple bilateral and multi lobar pulmonary nodules with a large mass centered at the LEFT hilum. 3. Small bilateral pleural effusions, LEFT greater than RIGHT.
[2023-06-24] MEDS: sodium chloride 0.9% 1,000 ML 30 ML IV (06:41)
--- NOTE | 2023-06-24 06:50 | ANES.PREANE2 ---
Pre-Anesthetic Assessment Height/Weight: Height 1.73 m Weight 87.543 kg Temp Pulse Resp BP Pulse Ox O2 Del Method 98.0 F 74 18 157/79 96 Room Air 06/24/23 06:06/24/23 06:31 06/24/23 06:31 06/24/23 06:31 06/24/23 06:31 06/24/23 06:31 Operation Date: 06/24/23 07:00 Proposed Procedures p ON,EBUS, 01087, 40788, 56253, 44484, 36781, 98807, 54219, 49589, 61594, 03743, 03223, 64813, 91431, 74371,ON,EBUS, 19481, 45159, 97021, 14185, 66999, 97520, 25902, 29058, 43413, 56635, 61028, 46433, 58460, 63283(Not Applicable) - Bryon Doe MD s Ebus(Not Applicable) - Bryon FreedmanrMD Familial anesthetic complications: None Was Beta Obinna taken within 24 hours: Yes Was Clonidine taken within 24 hours: N/A Last intake: Intake Last Liquid Date 06/23/23 Last Liquid Time 22:00 Last Solid Date 06/23/23 Last Solid Time 22:00 Social No alcohol and No tobacco Exam alert, oriented x 3, clear to auscultation bilaterally and regular rate & rhythm Airway Mallampati: Class II Dentition: full Pulmonary LUng masses CV/HEM Hypertension Anesthetic Plan ASA status: 3 Anesthesia: General Risk of > 500 ml blood loss (7ml/kg in children): No Medications/Allergies Home Medications Medication Instructions Recorded Confirmed Last Taken Type cetirizine 10 mg tablet (Zyrtec) 10 mg PO DAILY 12/25/21 06/24/23 06/23/23 History cholecalciferol (vitamin D3) 1,250 1,250 mcg PO DAILY 12/25/21 06/24/23 06/23/23 History mcg (50,000 unit) capsule metoprolol succinate 50 mg 50 mg PO DAILY 12/25/21 06/24/23 06/23/23 History tablet,extended release 24 hr montelukast 10 mg tablet 10 mg PO BEDTIME #90 tabs 12/27/22 06/24/23 06/23/23 Rx (Singulair) furosemide 40 mg tablet (Lasix) 40 mg PO DAILY #30 tabs 01/02/23 06/24/23 06/21/23 Rx albuterol sulfate 90 mcg/actuation 2 puff inhalation Q6H PRN 06/18/23 06/24/23 06/23/23 History aerosol inhaler Shortness Of Breath citalopram 10 mg tablet 20 mg PO DAILY 06/18/23 06/24/23 06/23/23 History Allergies Allergy/AdvReac Type Severity Reaction Status Date / Time latex Allergy ALGY-Bliste Verified 06/24/23 06:00 r naproxen Allergy ADR-Abdominal Verified 06/24/23 06:00 Pain Sulfa (Sulfonamide Allergy Unknown Verified 06/24/23 06:00 Antibiotics) Current Medications Generic Name Dose Route Start Last Admin Trade Name Freq PRN Reason Stop Dose Admin Sodium Chloride 1,000 mls @ 30 mls/hr 06/24/23 06:45 06/24/23 06:41 Sodium Chloride 0.9% IV 06/25/23 06:44 30 mls/hr .Q24H ROZ Administration PFSH Anesthesia Medical History Vitamin D deficiency History of endometrial cancer Carpal tunnel syndrome on both sides GERD (gastroesophageal reflux disease) Hypertension Degenerative arthritis Metastatic breast cancer Malignant pleural effusion Chronic kidney disease, unspecified Surgical History S/P breast lumpectomy x 2 History of hysterectomy with bilateral oophorectomy (2006) History of knee surgery History of tonsillectomy and adenoidectomy History of D&C History of cholecystectomy History of breast reconstruction (1988) History of bilateral mastectomy (1988) Family History Other Anesthesia complication CAD (coronary artery disease) Cancer Hyperlipidemia Hypertension Psychiatric illness Stroke Denies family history of Diabetes Clotting disorder Dementia Chronic kidney disease (CKD) Suicide Bleeding disorder Lung disease Social History Smoking and tobacco/nicotine status: never used tobacco/nicotine Alcohol intake: never Data Anesthesia Cardiac Studies: Echocardiogram 05/16/23
--- NOTE | 2023-06-24 07:01 | W.PM.OPSUD ---
Surgery/Procedure H&P Update DATE OF PROCEDURE: June 24, 2023 DATE H&P PERFORMED: 06/18/23 H&P UPDATE INFORMATION: I have reviewed H&P completed within last 30 days, I have examined patient prior to procedure and No changes to prior documentation CHANGES TO PREVIOUS DOCUMENTATION: none PREOP DIAGNOSIS: suspected malignancy PRIMARY INDICATION FOR PROCEDURE: to rule out cancer progression in pt with prev h/o breast Ca on hormonal therapy with new lung lesions PLANNED PROCEDURE: Operation Date: 06/24/23 07:00 Proposed Procedures p ON,EBUS, 22354, 94128, 23698, 60626, 10778, 49551, 22176, 77672, 21415, 24048, 43079, 50102, 86437, 55967,ON,EBUS, 68388, 72797, 98405, 15370, 90988, 35682, 69282, 30113, 55755, 18758, 97065, 84100, 23951, 49102(Not Applicable) - Bryon Doe MD s Ebus(Not Applicable) - Bryon Doe MD
[2023-06-24] MEDS: lidocaine 1% INJ 10 mL (per mL) XX (07:38)
[2023-06-24 08:00] LABS: Cyto Order Verification Order Verified
[2023-06-24] MEDS: EPINEPHrine 1 mg/mL INJ XX (08:27)
--- NOTE | 2023-06-24 08:31 | XR_ITS ---
WS: [id number] PORTABLE CHEST HISTORY: post op COMPARISON: CT 06/24/2023 and radiograph 08/03/2016 New mild hazy attenuation throughout both lungs suggesting fluid overload and edema. Some of these ch anges may be related to overlying soft tissue. Patient has known pulmonary masses and nodules and lar ge LEFT hilar mass. No complications are evident from the recent biopsy. Cardiac size: Mildly enlarged cardiac silhouette. Mediastinum/Aorta: Mild atherosclerosis aorta. Increased consolidation at the LEFT hilum is from the known mass. Degenerative changes at the glenohumeral joints. Osteopenia. IMPRESSION: 1. No pneumothorax status post thoracentesis. 2. Diffuse mild hazy attenuation throughout both lungs. Small amount of pulmonary edema is likely. S ome of the areas of increased attenuation may also be due to overlying soft tissue.
--- NOTE | 2023-06-24 09:27 | PM.OP ---
Operative Report Date of procedure: June 24, 2023 Pre-op diagnosis: Suspected malignancy Post-op diagnosis: Same Procedure done: Dx Bronchoscope w/BAL Dx Bronchoscopy w/Bronchial or Endobronchial biopsy(s), single or multiple sites Bronchoscopy w/ therapeutic aspiration of the tracheobronchial tree (clearance of airway secretions, removal of mucus plugs) EBUS Sampling >=3 nodes Surgeon: Bryon Doe MD Brief History: Ms. Brooke Robert is a 78-year-old female with stage IV breast cancer (Tx, Nx, M1), ER/[place] positive, involving pleura, lung, lymph nodes and bone referred by Dr. James Oncologist for left lung mass. Patient reported that she never smoked. She has SOB with exertion and cough and has an albuterol inhaler but does not use. She was diagnosed with stage IV breast cancer, ER/[place] positive and HER-2 unknown, when she presented in 2015 with malignant left pleural effusion.? At that time there was also evidence of pulmonary metastatic disease, mediastinal involvement, and metastatic bone lesions. She had a very good response to treatment with letrozole in combination with palbociclib. During follow-up she has tolerated the treatment well with the palbociclib administered at a reduced dosage.? has developed lower extremity edema. She thinks some of this may just be allergy related. Her follow-up CT result from 04/25/2023 shows new soft tissue mass lymphadenopathy of left lower AP window measuring 2.3 x 2.3 cm and new LLL mass along the inferior hilum measuring 3.5 x 3.6 cm with consolidation and narrowing of the LLL bronchi She had a long discussion with her oncologist regarding her scan which shows progression. Bone scan also shows diffuse metastatic disease. Clinically she remains asymptomatic. She had a PET/CT scan 05/28/2023 which showed significant interval increase in size of soft tissue density mass in posterior left inferior hilar region 4 x 3.8 cm SUV 7.2. (Previous PET/CT in 2019 measured 1.2 cm SUV 4.1); there were several new solid bilateral pulmonary nodules largest demonstrates low-level uptake in the dominant nodule that measures 9 to 10 mm in anterior left upper lobe. Soft tissue density noncalcified compared with lymph node or mass in the aortopulmonary window SUV 6.3. Focal elevated uptake identified in region of lateral wall of rectum where there appears to be soft tissue density nodule or malignancy cannot be excluded. Today she came to get biopsies. However during initial inspection-she had complete occlusion of left lower lobe airway and hence we decided to do endobronchial biopsies and endobronchial ultrasound-guided biopsies and canceled navigational bronchoscopy Procedure: Procedure: -Dx Bronchoscope w/BAL -Dx Bronchoscopy w/Bronchial or Endobronchial biopsy(s), single or multiple sites -Bronchoscopy w/ therapeutic aspiration of the tracheobronchial tree (clearance of airway secretions, removal of mucus plugs) -EBUS Sampling >=3 nodes Indication: CT 04/30/2023-left hilar mass and subcarinal lymphadenopathy Anesthesia: General anesthesia. Local anesthesia: The bernie in the right and left mainstem bronchi were anesthetized with 1% lidocaine, 3 mL. Description of the procedure: The procedure was explained to the patient and the consent was obtained. The patient was brought to the OR. The patient underwent induction for general anesthesia and endotracheal tube was placed. The bronchoscope was advanced through the ET tube. The distal trachea was visualized. There were secretions which were suctioned right away. Tracheal mucosa appeared normal, no endotracheal lesion was seen. The bernie was sharp. 1 mL each of 1% lidocaine was instilled in the trachea the right and left mainstem bronchi for local anesthesia. In a systematic manner bilateral bronchial tree was then examined. The bronchoscope was advanced into the right mainstem bronchus. The right upper lobe, middle lobe, lower lobe were examined up to the third subsegmental level and no abnormalities were identified. Mucosa of appeared normal with no endobronchial lesion. There were clear secretions which were suctioned right away. The bronchoscope was then introduced into the left mainstem bronchus. Mucosa of left mainstem bronchus appeared normal. Left upper lobe, lingula airways have normal openings and normal mucosa. However left lower lobe opening is completely occluded except the opening of superior segment of left lower lobe is normal with normal mucosa. There were mucoid secretions which were suctioned right away. She was originally scheduled to get navigational bronchoscopy guided biopsies as well as endobronchial ultrasound-guided biopsies of left hilar mass. However during initial inspection-she had complete occlusion of left lower lobe airway and hence we decided to do endobronchial biopsies of visible lesion as well as endobronchial ultrasound-guided biopsies of hilar/subcarinal lymph nodes and canceled navigational bronchoscopy. With the help of forceps took endobronchial biopsies were taken from the mass occluding left lower lobe. There was evidence of bleeding which was controlled with cold saline and diluted epinephrine. BAL was taken from the same area. Bronchoscope was retracted and Endobronchial Ultrasound (EBUS) was introduced. Identified a large hypoechoic mass in 11 L, and there are suspicious lymph nodes > 5 mm in diameter at station 7, station 11 R. Using [id number] were taken 11 R, station 7 and 11 L in that order to help with staging; there was some evidence of bleeding at each biopsy site which is controlled with instillation of cold saline and diluted epinephrine. After making sure there is no active bleeding, bronchoscope retracted and procedure terminated. Samples: 1. Endobronchial biopsies from mass occluding left lower lobe airways 2. Bronchoalveolar lavage was performed after wedging the bronchoscope at the entrance of occluded left lower lobe. 30 mL of saline was instilled, fluid return was 15 mL. Bronchoalveolar lavage specimen was sent for cell count and differential, gram stain and culture, cytology B. EBUS guided Fine-needle aspiration biopsies were taken from 11 R, station 7 and 11 L in that order 1. Total of 5 passes were made using needle aspiration from station 11 R; all the material was placed in formalin and sent for histopathology 2. Total of 4 passes were made using needle aspiration from station 7; all the material was placed in formalin and sent for histopathology 3. Total of 5 passes were made using needle aspiration from station 11 L; all the material was placed in formalin and sent for histopathology Complications: The patient was extubated and brought to the PACU. In PACU patient was seen desaturating. She had home oxygen evaluation which showed desaturation 86% and improved with 2 L oxygen. Will send prescription for supplemental oxygen 2 L to keep saturations > 88% at home. There is no evidence of pneumothorax on postprocedure chest x-ray. Disposition: Patient can be discharged home with 2 L supplemental oxygen. Pt is aware that I am going to call her to update final biopsy results once available. Related Problem List Diagnoses (1) Mass of left lung: (2) Requires supplemental oxygen: Postprocedure-the patient was extubated and brought to the PACU. In PACU patient was seen desaturating. She had home oxygen evaluation which showed desaturation 86% and improved with 2 L oxygen. I will send prescription for supplemental oxygen and recommended patient to use 2 L to keep saturations > 88% at home.
[2023-06-24 09:37] LABS: ABG PCO2 55.1 mmHg (35-45); ABG PH Result 7.32 (7.35-7.45); Alveolar-Arterial Oxygen Gradi 8.7 mmHg (5-10); Arterial Blood Gas Hematocrit 40.8 % (37-47); Base Excess ABG 1.3 mmol/L (-2.0-2.0); Blood Gas Allen Test Pos; Blood Gas Operator Identificat MONRO; Blood Gas Sample Site Brachial, left; Blood Gas Sample Type Arterial; Carboxyhemoglobin 0.8 %THgb (0.4-20.1); HCO3 ABG 28.5 mmol/L (22-26); HGB O2 Sat 90.8 % (95-100); Ionized Calcium Level - ABG 1.2 mmol/L (1.1-1.4); Methemoglobin 0.5 % (0.4-1.5); Oxygen Device NC; Oxygen Saturation ABG 92.1; PO2 ABG 67.7 mmHg (80.0-100.0); PO2 FiO2 Ratio Arterial Blood 0; Potassium Level - ABG 4.1 mmol/L (3.5-5.0); Total Hemoglobin 13.3 g/dL (12-16)
[2023-06-24] MEDS: FUROsemide 10 mg/mL SDV 4mL 40 MG IVP (09:37)
[2023-06-24 10:49] LABS: Color, Bronc Wash YELLOW; Total Cells Counted Bronch 400
[2023-06-24 10:50] LABS: Apprearance, Bronch Wash Hazy (CLEAR)
[2023-06-24 10:54] LABS: PATH Referral Yes
--- NOTE | 2023-06-24 11:47 | PC.NURSE ---
DELAYED DISCHARGE RELATED TO HOME OXYGEN NEED WITH ORDERS BEING SENT TO DME COMPANY/ REQUIRED COMMUNICATION WITH MD & DME COMPANY TO ENSURE ORDERS WERE RECEIVED.
--- NOTE | 2023-06-24 11:55 | ANE.PACU2 ---
Inpatient post-anesthesia follow up: Airway intact: Yes Vital signs: Temperature 97.7 F Pulse Rate 82 Respiratory Rate 16 Blood Pressure 122/65 Pulse Oximetry [Qu alifying 96 Sp02 on Oxygen wit h Exercise] Pulse Oximetry [Ro om Air at 86 Rest] Pulse Oximetry 95 Oxygen Delivery Me thod Nasal Cannula Oxygen Flow Rate 2 Fraction of Inspir ed Oxygen Hydration adequate: Yes Nausea and vomiting: No Pain level: 1 Mental status: Baseline
[2023-06-28 14:20] LABS: PD-L1 (Clone 22C3) by IHC BBPL See Report
== END 2023-06-24 11:55 | disposition home or self-care (01) ==
PROVIDERS: PCP Family Medicine; Visit Provider Internal Medicine Pulmonary Disease
PROC: 0BJ08ZZ Inspection of Tracheobronchial Tree, Via Natural or Artificial Opening Endoscopic (ICD-10-PCS; CPT 31622; principal; 2023-06-24 07:00)
PROC: BB4BZZZ Ultrasonography of Pleura (ICD-10-PCS; 2023-06-24 07:00)
DX: C34.32 Malignant neoplasm of lower lobe, left bronchus or lung (principal); I12.9 Hypertensive chronic kidney disease with stage 1 through stage 4 chronic kidney disease, or unspecified chronic kidney disease; N18.9 Chronic kidney disease, unspecified; C50.919 Malignant neoplasm of unspecified site of unspecified female breast; Z17.0 Estrogen receptor positive status [ER+]
CPT/HCPCS: 31624; 31625; 31645; 31653; 36600; 71045; 71250; 80051; 80503; 82330; 82805; 87070; 87205; 88112; 88305; 88341; 88342; 89050; 94760; J0171; J1940; J2371; J2704; J2710; J3010; J3490; J3535; J7030

== ENCOUNTER 2023-07-04 08:30 | Oncology outpatient (recurring) (ONCR) | payer MEDICARE, SELFPAY ==
[2023-07-02 11:59] LABS: Basophils % 0.4 %; Eosinophils # 0.2 10^3/uL (0.0-0.8); Hematocrit 40.6 % (36-47); Lymphocytes # 0.9 10^3/uL (0.8-4.8); Lymphocytes % 12.8 %; Mean Corpuscular HGB Conc 32.3 g/dL (30-55); Mean Corpuscular Hemoglobin 28.2 pg (27-33); Mean Corpuscular Volume 87.5 fl (85-98); Mean Platelet Volume 9.1 fL (7.4-10.4); Monocytes # 0.5 10^3/uL (0.2-0.9); Monocytes % 7.4 %; Neutrophils # 5.54 10^3/uL (1.8-7.7); Neutrophils % 76.1 %; Nucleated Red Blood Cells % 0 %; Platelet Count 235 10^3/cmm (157-399); Red Blood Count 4.64 10^6/uL (3.85-5.65); Red Cell Distribution Width 12.7 % (12.1-15.1); White Blood Count 7.28 10^3/uL (3.29-11.43)
[2023-07-02 12:27] LABS: Alanine Aminotransferase 18 U/L (0-33); Albumin Level 3.9 g/dL (3.5-5.2); Alkaline Phosphatase 120 U/L (35-105); Anion Gap 12.1 (5-19); Aspartate Amino Transferase 16 U/L (0-32); Blood Urea Nitrogen 17 mg/dL (8-23); Calcium 9.3 mg/dL (8.5-10.5); Carbon Dioxide 27 mmol/L (22-29); Chloride 100 mmol/L (98-107); Globulin 3.1 g/dL (1.3-4.6); Glucose 112 mg/dL (65-115); Osmolality Calculated 282 mOsm/kg (285-295); Potassium 4.1 mmol/L (3.5-5.1); Sodium 135 mmol/L (136-145); Total Bilirubin 0.4 mg/dL (0.15-1.2)
[2023-07-04 08:45] VITALS: BP 133/78; PULSE 79; RESP 18; TEMP 36.6; O2SAT 98
[2023-07-04] MEDS: zoledronic acid (Zometa) 4 MG/100 ML PIGGYBACK 400 MG IV (09:05)
[2023-07-04 09:49] VITALS: BP 143/78; PULSE 70; RESP 18; TEMP 36.6; O2SAT 98
== END 2023-07-25 23:59 | disposition home or self-care (01) ==
PROVIDERS: Nurse Practitioner Family; PCP Family Medicine; Visit Provider Internal Medicine Medical Oncology
DX: Z53.9 Procedure and treatment not carried out, unspecified reason (principal); C79.51 Secondary malignant neoplasm of bone; C78.02 Secondary malignant neoplasm of left lung; Z85.3 Personal history of malignant neoplasm of breast; Z90.13 Acquired absence of bilateral breasts and nipples; Z79.899 Other long term (current) drug therapy; Z79.52 Long term (current) use of systemic steroids; Z79.83 Long term (current) use of bisphosphonates
CPT/HCPCS: 36415; 80053; 85025; 86300; 96365; 99214; 99215; J3489

== ENCOUNTER 2023-09-12 07:55 | Oncology outpatient (recurring) (ONCR) | payer MEDICARE, SELFPAY ==
[2023-09-12 08:26] LABS: Basophils % 0.5 %; Eosinophils # 0.3 10^3/uL (0.0-0.8); Eosinophils % 3.4 %; Hematocrit 43.1 % (36-47); Lymphocytes % 13.7 %; Mean Corpuscular HGB Conc 31.6 g/dL (30-55); Mean Corpuscular Hemoglobin 27.4 pg (27-33); Mean Corpuscular Volume 86.7 fl (85-98); Mean Platelet Volume 9.4 fL (7.4-10.4); Monocytes # 0.6 10^3/uL (0.2-0.9); Monocytes % 8.1 %; Neutrophils # 5.42 10^3/uL (1.8-7.7); Nucleated Red Blood Cells % 0 %; Platelet Count 223 10^3/cmm (157-399); Red Blood Count 4.97 10^6/uL (3.85-5.65); Red Cell Distribution Width 13.2 % (12.1-15.1); White Blood Count 7.32 10^3/uL (3.29-11.43)
[2023-09-12 08:54] LABS: Alanine Aminotransferase 18 U/L (0-33); Alkaline Phosphatase 100 U/L (35-105); Anion Gap 14.5 (5-19); Aspartate Amino Transferase 23 U/L (0-32); Blood Urea Nitrogen 24 mg/dL (8-23); CA 15-3 35.4 U/mL (0-25); Calcium 9.2 mg/dL (8.5-10.5); Carbon Dioxide 26 mmol/L (22-29); Chloride 102 mmol/L (98-107); Globulin 3.2 g/dL (1.3-4.6); Glucose 142 mg/dL (65-115); Osmolality Calculated 292 mOsm/kg (285-295); Potassium 4.5 mmol/L (3.5-5.1); Sodium 138 mmol/L (136-145); Total Bilirubin 0.3 mg/dL (0.15-1.2); Total Protein 7.2 g/dL (6.6-8.7)
[2023-09-12] MEDS: zoledronic acid (Zometa) 4 MG/100 ML PIGGYBACK 400 MG IV (11:28)
[2023-09-12] MEDS: ipratropium-albuterol 3 mL Neb INHALATION (11:31)
[2023-09-12] MEDS: fulvestrant 250 mg/5 mL Syringe 500 MG IM (12:03)
--- NOTE | 2023-09-12 12:18 | XR_ITS ---
WS: [id number] Exam: XR chest 2V* [id number] Date/Time of Exam: 09/12/2023 12:19 PM Reason For Exam: shortness of breath and pleural effusions Comparison 06/24/2023. Bilateral pleural effusions are noted. LEFT lower lobe atelectasis. The lungs are fully expanded. Sev eral scattered ill-defined pulmonary nodules are noted. Heart size is top limits normal. The mediasti num is not widened. Degenerative change of the LEFT shoulder. Remaining bony structures are intact. IMPRESSION: 1. Bilateral pleural effusions. Effusion on the RIGHT is likely along the posterior aspect of the cathy g. LEFT lower lobe atelectasis. 2. Several scattered ill-defined small pulmonary nodules are noted bilaterally.
== END 2023-09-24 23:59 | disposition home or self-care (01) ==
PROVIDERS: Nurse Practitioner Family; PCP Family Medicine; Visit Provider Internal Medicine Medical Oncology
DX: C50.011 Malignant neoplasm of nipple and areola, right female breast; Z17.0 Estrogen receptor positive status [ER+]; C79.51 Secondary malignant neoplasm of bone; C78.02 Secondary malignant neoplasm of left lung; Z79.818 Long term (current) use of other agents affecting estrogen receptors and estrogen levels; Z79.83 Long term (current) use of bisphosphonates; R06.02 Shortness of breath; Z79.899 Other long term (current) drug therapy; J90 Pleural effusion, not elsewhere classified; K62.5 Hemorrhage of anus and rectum; S60.571A Other superficial bite of hand of right hand, initial encounter; W55.01XA Bitten by cat, initial encounter; Z72.820 Sleep deprivation; Z63.4 Disappearance and death of family member; R73.9 Hyperglycemia, unspecified; E86.0 Dehydration
CPT/HCPCS: 36415; 71046; 80053; 85025; 86300; 96365; 99215; J3489; J9395

== ENCOUNTER 2023-10-10 08:15 | Oncology outpatient (recurring) (ONCR) | payer MEDICARE, SELFPAY ==
[2023-09-26 08:56] LABS: Basophils # 0.1 10^3/uL (0.0-0.1); Basophils % 0.7 %; Eosinophils # 0.4 10^3/uL (0.0-0.8); Eosinophils % 3.5 %; Hematocrit 44.1 % (36-47); Lymphocytes # 0.8 10^3/uL (0.8-4.8); Lymphocytes % 7.7 %; Mean Corpuscular HGB Conc 32.2 g/dL (30-55); Mean Corpuscular Hemoglobin 27.2 pg (27-33); Mean Corpuscular Volume 84.3 fl (85-98); Mean Platelet Volume 9.1 fL (7.4-10.4); Monocytes # 0.8 10^3/uL (0.2-0.9); Monocytes % 8.2 %; Neutrophils # 8.01 10^3/uL (1.8-7.7); Neutrophils % 79.6 %; Nucleated Red Blood Cells % 0 %; Platelet Count 224 10^3/cmm (157-399); Red Blood Count 5.23 10^6/uL (3.85-5.65); Red Cell Distribution Width 12.9 % (12.1-15.1); White Blood Count 10.07 10^3/uL (3.29-11.43)
[2023-09-26 09:12] LABS: Alanine Aminotransferase 15 U/L (0-33); Albumin Level 3.6 g/dL (3.5-5.2); Alkaline Phosphatase 79 U/L (35-105); Anion Gap 14.8 (5-19); Aspartate Amino Transferase 14 U/L (0-32); Blood Urea Nitrogen 18 mg/dL (8-23); Calcium 8.9 mg/dL (8.5-10.5); Carbon Dioxide 25 mmol/L (22-29); Chloride 103 mmol/L (98-107); Globulin 3.5 g/dL (1.3-4.6); Glucose 154 mg/dL (65-115); Osmolality Calculated 293 mOsm/kg (285-295); Potassium 3.8 mmol/L (3.5-5.1); Sodium 139 mmol/L (136-145); Total Bilirubin 0.5 mg/dL (0.15-1.2); Total Protein 7.1 g/dL (6.6-8.7)
[2023-09-26] MEDS: fulvestrant 250 mg/5 mL Syringe 500 MG IM (11:05)
[2023-10-10 08:26] LABS: Basophils # 0.1 10^3/uL (0.0-0.1); Eosinophils # 0.3 10^3/uL (0.0-0.8); Eosinophils % 3.3 %; Hematocrit 43.5 % (36-47); Lymphocytes # 1.1 10^3/uL (0.8-4.8); Lymphocytes % 11.7 %; Mean Corpuscular HGB Conc 32.9 g/dL (30-55); Mean Corpuscular Hemoglobin 26.9 pg (27-33); Mean Corpuscular Volume 81.8 fl (85-98); Mean Platelet Volume 8.7 fL (7.4-10.4); Monocytes # 0.5 10^3/uL (0.2-0.9); Neutrophils % 78.8 %; Nucleated Red Blood Cells % 0 %; Platelet Count 201 10^3/cmm (157-399); Red Blood Count 5.32 10^6/uL (3.85-5.65); Red Cell Distribution Width 13.2 % (12.1-15.1); White Blood Count 9.01 10^3/uL (3.29-11.43)
[2023-10-10 08:44] LABS: Alanine Aminotransferase 16 U/L (0-33); Albumin Level 3.9 g/dL (3.5-5.2); Alkaline Phosphatase 111 U/L (35-105); Anion Gap 15.7 (5-19); Aspartate Amino Transferase 18 U/L (0-32); Blood Urea Nitrogen 22 mg/dL (8-23); Calcium 9.1 mg/dL (8.5-10.5); Carbon Dioxide 25 mmol/L (22-29); Chloride 98 mmol/L (98-107); Creatinine Clr Calc Pharmacy 38.9817; Globulin 3.5 g/dL (1.3-4.6); Glucose 327 mg/dL (65-115); Osmolality Calculated 296 mOsm/kg (285-295); Potassium 3.7 mmol/L (3.5-5.1); Sodium 135 mmol/L (136-145); Total Bilirubin 0.5 mg/dL (0.15-1.2); Total Protein 7.4 g/dL (6.6-8.7)
[2023-10-10] MEDS: zoledronic acid (Zometa) 4 MG/100 ML PIGGYBACK 400 MG IV (09:26)
[2023-10-10 09:29] VITALS: BP 157/65; PULSE 81; RESP 18
[2023-10-10] MEDS: fulvestrant 250 mg/5 mL Syringe 500 MG IM (09:44)
[2023-10-10 09:48] VITALS: BP 144/77; PULSE 81; RESP 18
== END 2023-10-25 23:59 | disposition home or self-care (01) ==
PROVIDERS: Nurse Practitioner Family; PCP Family Medicine; Visit Provider Internal Medicine Medical Oncology
DX: Z53.9 Procedure and treatment not carried out, unspecified reason (principal); Z79.818 Long term (current) use of other agents affecting estrogen receptors and estrogen levels; C79.51 Secondary malignant neoplasm of bone; Z79.899 Other long term (current) drug therapy; C50.919 Malignant neoplasm of unspecified site of unspecified female breast
CPT/HCPCS: 36415; 80053; 85025; 96365; 96402; 99214; J3489; J9395

== ENCOUNTER → 2023-10-15 14:02 | Outpatient (BNVA) | payer MEDICARE, SELFPAY | PROVIDERS: PCP Family Medicine; Visit Provider Surgery | DX: K62.5 Hemorrhage of anus and rectum (principal); C50.919 Malignant neoplasm of unspecified site of unspecified female breast; C78.00 Secondary malignant neoplasm of unspecified lung | CPT/HCPCS: 99204 ==

== ENCOUNTER 2023-11-18 09:22 | Oncology outpatient (recurring) (ONCR) | payer MEDICARE, SELFPAY ==
[2023-11-18 09:46] LABS: Basophils # 0.1 10^3/uL (0.0-0.1); Basophils % 0.8 %; Eosinophils # 0.3 10^3/uL (0.0-0.8); Eosinophils % 3.7 %; Lymphocytes # 1.2 10^3/uL (0.8-4.8); Lymphocytes % 15.8 %; Mean Corpuscular HGB Conc 32.1 g/dL (30-55); Mean Corpuscular Hemoglobin 26.3 pg (27-33); Mean Corpuscular Volume 82.1 fl (85-98); Mean Platelet Volume 9.2 fL (7.4-10.4); Monocytes # 0.6 10^3/uL (0.2-0.9); Monocytes % 7.2 %; Neutrophils # 5.49 10^3/uL (1.8-7.7); Neutrophils % 72.2 %; Nucleated Red Blood Cells % 0 %; Platelet Count 233 10^3/cmm (157-399); Red Blood Count 5.24 10^6/uL (3.85-5.65); Red Cell Distribution Width 13.6 % (12.1-15.1)
[2023-11-18 10:09] LABS: Alanine Aminotransferase 15 U/L (0-33); Alkaline Phosphatase 69 U/L (35-105); Anion Gap 18.7 (5-19); Aspartate Amino Transferase 17 U/L (0-32); Blood Urea Nitrogen 17 mg/dL (8-23); Calcium 9.2 mg/dL (8.5-10.5); Carbon Dioxide 27 mmol/L (22-29); Chloride 97 mmol/L (98-107); Globulin 3.2 g/dL (1.3-4.6); Glucose 367 mg/dL (65-115); Osmolality Calculated 302 mOsm/kg (285-295); Potassium 4.7 mmol/L (3.5-5.1); Sodium 138 mmol/L (136-145); Total Bilirubin 0.8 mg/dL (0.15-1.2); Total Protein 7.2 g/dL (6.6-8.7)
[2023-11-18 10:15] LABS: Creatinine Clr Calc Pharmacy 41.3735
[2023-11-18] MEDS: zoledronic acid (Zometa) 4 MG/100 ML PIGGYBACK 400 MG IV (10:57)
[2023-11-18] MEDS: fulvestrant 250 mg/5 mL Syringe 500 MG IM (11:04)
[2023-11-18 11:48] LABS: CA 15-3 20.2 U/mL (0-25)
== END 2023-11-24 23:59 | disposition home or self-care (01) ==
PROVIDERS: Nurse Practitioner Family; PCP Family Medicine; Visit Provider Internal Medicine Medical Oncology
DX: Z51.11 Encounter for antineoplastic chemotherapy (principal); C79.51 Secondary malignant neoplasm of bone; C78.02 Secondary malignant neoplasm of left lung; Z85.3 Personal history of malignant neoplasm of breast; Z90.13 Acquired absence of bilateral breasts and nipples
CPT/HCPCS: 80053; 85025; 86300; 96374; 99214; J3489; J9395

== ENCOUNTER 2023-12-16 12:04 | Oncology outpatient (recurring) (ONCR) | payer MEDICARE, SELFPAY ==
[2023-12-16 12:52] LABS: Basophils # 0.1 10^3/uL (0.0-0.1); Basophils % 0.7 %; Eosinophils # 0.2 10^3/uL (0.0-0.8); Eosinophils % 2.6 %; Hematocrit 40.4 % (36-47); Lymphocytes % 12.6 %; Mean Corpuscular HGB Conc 31.7 g/dL (30-55); Mean Corpuscular Hemoglobin 27.5 pg (27-33); Mean Corpuscular Volume 86.7 fl (85-98); Mean Platelet Volume 9.5 fL (7.4-10.4); Monocytes # 0.7 10^3/uL (0.2-0.9); Monocytes % 9.1 %; Neutrophils # 5.64 10^3/uL (1.8-7.7); Neutrophils % 74.6 %; Nucleated Red Blood Cells % 0 %; Platelet Count 268 10^3/cmm (157-399); Red Blood Count 4.66 10^6/uL (3.85-5.65); Red Cell Distribution Width 15.2 % (12.1-15.1); White Blood Count 7.56 10^3/uL (3.29-11.43)
[2023-12-16 13:19] LABS: Alanine Aminotransferase 14 U/L (0-33); Alkaline Phosphatase 84 U/L (35-105); Aspartate Amino Transferase 23 U/L (0-32); Blood Urea Nitrogen 20 mg/dL (8-23); CA 15-3 31.5 U/mL (0-25); Carbon Dioxide 25 mmol/L (22-29); Chloride 104 mmol/L (98-107); Globulin 3.1 g/dL (1.3-4.6); Glucose 153 mg/dL (65-115); Osmolality Calculated 300 mOsm/kg (285-295); Sodium 142 mmol/L (136-145); Total Bilirubin 0.4 mg/dL (0.15-1.2); Total Protein 7.1 g/dL (6.6-8.7)
[2023-12-16] MEDS: zoledronic acid (Zometa) 4 MG/100 ML PIGGYBACK 400 MG IV (14:13)
[2023-12-16] MEDS: fulvestrant 250 mg/5 mL Syringe 500 MG IM (14:39)
[2023-12-16 14:44] VITALS: BP 136/73; PULSE 74; RESP 16; TEMP 36.7; O2SAT 99
[2023-12-16 14:45] VITALS: BP 122/78; PULSE 78; RESP 18; TEMP 36.4; O2SAT 98
== END 2023-12-25 23:59 | disposition home or self-care (01) ==
PROVIDERS: Nurse Practitioner Family; PCP Family Medicine; Visit Provider Internal Medicine Medical Oncology
DX: Z79.818 Long term (current) use of other agents affecting estrogen receptors and estrogen levels; Z79.899 Other long term (current) drug therapy; Z51.11 Encounter for antineoplastic chemotherapy; C50.919 Malignant neoplasm of unspecified site of unspecified female breast; Z17.0 Estrogen receptor positive status [ER+]; Z79.83 Long term (current) use of bisphosphonates; R73.9 Hyperglycemia, unspecified; F41.8 Other specified anxiety disorders; Z79.4 Long term (current) use of insulin; C79.51 Secondary malignant neoplasm of bone; F32.A Depression, unspecified
CPT/HCPCS: 80053; 85025; 86300; 96365; 99214; J3489; J9395

== ENCOUNTER 2024-01-13 11:53 | Oncology outpatient (recurring) (ONCR) | payer MEDICARE, SELFPAY ==
[2024-01-13 12:39] LABS: Basophils % 0.7 %; Eosinophils # 0.1 10^3/uL (0.0-0.8); Eosinophils % 2.2 %; Lymphocytes # 0.9 10^3/uL (0.8-4.8); Lymphocytes % 14.7 %; Mean Corpuscular HGB Conc 31.7 g/dL (30-55); Mean Corpuscular Hemoglobin 27.9 pg (27-33); Mean Platelet Volume 9.3 fL (7.4-10.4); Monocytes # 0.3 10^3/uL (0.2-0.9); Monocytes % 5.2 %; Neutrophils # 4.46 10^3/uL (1.8-7.7); Nucleated Red Blood Cells % 0 %; Platelet Count 224 10^3/cmm (157-399); Red Blood Count 4.66 10^6/uL (3.85-5.65); White Blood Count 5.79 10^3/uL (3.29-11.43)
[2024-01-13 13:05] LABS: Alanine Aminotransferase 8 U/L (0-33); Albumin Level 3.9 g/dL (3.5-5.2); Alkaline Phosphatase 67 U/L (35-105); Anion Gap 13.6 (5-19); Aspartate Amino Transferase 16 U/L (0-32); Blood Urea Nitrogen 22 mg/dL (8-23); CA 15-3 38.3 U/mL (0-25); Calcium 8.8 mg/dL (8.5-10.5); Carbon Dioxide 26 mmol/L (22-29); Chloride 104 mmol/L (98-107); Globulin 2.8 g/dL (1.3-4.6); Glucose 184 mg/dL (65-115); Osmolality Calculated 298 mOsm/kg (285-295); Potassium 3.6 mmol/L (3.5-5.1); Sodium 140 mmol/L (136-145); Total Bilirubin 0.4 mg/dL (0.15-1.2); Total Protein 6.7 g/dL (6.6-8.7)
[2024-01-13] MEDS: zoledronic acid (Zometa) 4 MG/100 ML PIGGYBACK 400 MG IV (14:52)
[2024-01-13] MEDS: fulvestrant 250 mg/5 mL Syringe 500 MG IM (15:15)
[2024-01-13 15:25] VITALS: BP 189/76; PULSE 72; RESP 16; TEMP 36.3; O2SAT 94
== END 2024-01-25 23:59 | disposition home or self-care (01) ==
PROVIDERS: Nurse Practitioner Family; PCP Family Medicine; Visit Provider Internal Medicine Medical Oncology
DX: C50.919 Malignant neoplasm of unspecified site of unspecified female breast; Z17.0 Estrogen receptor positive status [ER+]; Z79.818 Long term (current) use of other agents affecting estrogen receptors and estrogen levels; Z79.899 Other long term (current) drug therapy; Z79.83 Long term (current) use of bisphosphonates; R73.9 Hyperglycemia, unspecified; F41.8 Other specified anxiety disorders; Z79.4 Long term (current) use of insulin; C79.51 Secondary malignant neoplasm of bone
CPT/HCPCS: 80053; 85025; 86300; 96365; 99214; J3489; J9395

== ENCOUNTER 2024-01-21 10:46 | Outpatient (CLI) | payer MEDICARE, SELFPAY ==
--- NOTE | 2024-01-21 11:00 | PETR_ITS ---
PROCEDURE INFORMATION: Exam: PET/CT Skull Base to Mid-thigh Exam date and time: 01/21/2024 11:42 AM Age: 78 years old Clinical indication: Condition or disease; Primary cancer: Metastatic breast CA; Follow-up oncological assessment; Prior surgery; Surgery date: 6+ months; Surgery type: Bilat mastectomy. Gb. ; Additional info: Metastatic breast CA, surveillance LABS AND CLINICAL REPORTS: Glucose: 104 mg/dl Treatment strategy for malignancy (PET staging): Restaging (PS) TECHNIQUE: Imaging protocol: Following at least four-hour fasting and following the injection of radiopharmaceutical, low dose CT images were obtained. Then, PET images were obtained. Attenuation corrected images were constructed using the CT scan. Fused images of PET and CT were reviewed. The standardized uptake values (SUV) reported below are maximum values within a region of interest, expressed in gm/ml. Exam includes orbital meatal line to mid-thigh. Radiopharmaceutical: 10.39 mCi F-18 FDG (Fluorodeoxyglucose), IV. Time of imaging post radiopharmaceutical administration: 1 hour Injection site: Left hand COMPARISON: CT chest 06/24/2023, PT PET skulltothigh SUBSEQ [id number] 05/28/2023 11:38 AM FINDINGS: Brain: Visualized brain has normal physiologic uptake. Teeth: Uptake in the region of lucency surrounding the apex of the most posterior left mandibular molar is noted, SUV max 8.2 (previously 4.6) on series 301, image 32. Pharynx: No abnormal uptake. Larynx: No abnormal uptake. Lungs, pleura and trachea: Large left and small right pleural effusions are present. A posterior left perihilar mass containing a surgical clip is noted, SUV max 5.0 (previously 7.2). Assessment of the size of the mass is limited secondary to adjacent patchy consolidation throughout the left lower lobe which also demonstrates elevated uptake, SUV max 4.4 (previously 4.0) on series 202, image 219. The previously noted solid nodule measuring 9-10 mm (similar in size) in the anterior left upper lobe on series 202, image 255, demonstrates an SUV max 2.0 (previously 1.9). Several additional solid bilateral pulmonary nodules are present, some of which are slightly increased in size compared with the prior PET-CT without significant uptake. Examples: In the right lung apex measuring 7 mm, SUV max 1.6 (previously 1.4). Increased size of a posterior right lower lobe nodule measuring 5-6 mm (previously 2 mm on series 202, image 240, SUV max 2.0. Increased size of an anteromedial left upper lobe nodule measuring 6 mm (previously 5 mm on series 2, image 249, SUV max 1.4. Heart: Normal physiologic uptake. Mediastinal space: No abnormal uptake. Liver: A subtle focus of subcapsular uptake in the anterior right lobe of the liver series 301, image 46 is noted, SUV max 4.5, without a well-defined lesion on the CT images. Normal physiologic uptake in the liver demonstrates an SUV max 3.4, SUV mean 2.7. Calcified granulomas in the liver are present. Gallbladder and biliary ducts: No abnormal uptake. Pancreas: No abnormal uptake. Spleen: No abnormal uptake. There are calcified granulomas in the spleen. Adrenal glands: No abnormal uptake. Kidneys and ureters: Normal physiologic uptake. A large low-density lesion arises exophytically from the inferior pole of the left kidney compatible with a probable benign cyst. Stomach and bowel: Focal uptake in the rectal wall on the left is noted, SUV max 22.4 (previously 13.8) on image 247, associated with a probable soft tissue density nodule measuring 1.6 x 1.[address] image 82 of series 202. Reproductive: The uterus is not identified, likely surgically absent. No abnormal uptake. Vasculature: No abnormal uptake. Lymph nodes: Mild abnormal elevated uptake in the right hilar region is new, SUV max 3.7 on series 202, image 233 without a well-defined lymph node or mass in the CT images. Uptake in the left hilar region is elevated, SUV max 4.3 (previously 6.3) on image 250, likely within a cluster of lymph nodes involving the aortopulmonary window measuring 2.6 x 3.2 cm (previously 3.0 x 3.7 cm) on image 248. Skeleton: Numerous radiotracer avid osseous lesions are overall increased in number, size and radiotracer activity. Examples: A sclerotic lesion in the C2 vertebral body measures 3.0 x 1.6 cm (previously 1.9 x 1.4 cm) on image 307, SUV max 5.8 (previously 4.4); new uptake in the C3 vertebral body without a well-defined lesion of the CT images, SUV max 8.7 on image 301; new uptake in the base of the left glenoid in a sclerotic lesion measuring 1.5 x 0.8 cm, SUV max 8.4; new uptake in the right glenoid, SUV max 6.5 on image 269 within a 1.5 x 1.7 cm region of new sclerosis. T8 vertebral body within a sclerotic lesion measuring 3.2 x 2.2 cm (previously 1.6 x 1.2 cm), SUV max 5.9 (previously 3.8); L3 vertebral body within a sclerotic lesion measuring 1.3 cm (previously 1.1 cm), SUV max 4.2 (previously 4.0); within the distal left humerus, SUV max 7.1 (previously 4.5) on image 204. Numerous new foci of mottled sclerotic density or radiotracer avid in the medial right iliac bone, SUV max 11.3 on image 115. New posterior right sacral uptake, SUV max 7.3 on image 113 within a region of ill-defined sclerosis. New uptake at the posterior base of the left femoral neck, SUV max 4.2 on image 73 within a region of mild ill-defined sclerosis. There is increased mottled sclerotic density in the medial left iliac bone with interval decrease in uptake, SUV max 4.9 (previously 6.2). Soft tissues: No abnormal uptake. Bilateral breast implants are noted, with evidence of probable partial collapse of the inner membranes bilaterally. There are numerous surgical clips along the bilateral pelvic sidewalls. METRICS: Mediastinal blood pool: SUV max 2.8, SUV mean 2.2 PET/PET skull to thigh SUBS [id number] IMPRESSION: 1. Interval decrease in abnormal uptake within a posterior left perihilar mass which may reflect partial response to therapy. 2. Left lower lobe consolidation demonstrates slightly increased abnormal uptake which may be inflammatory or malignant in etiology. 3. Slight interval decrease in size in a probable cluster of lymph nodes or mass in the aortopulmonary window with slightly decreased uptake. There is new uptake in the right hilar region, likely within small lymph nodes. 4. Overall progression of radiotracer avid osseous metastatic disease, with the exception of slightly decreased uptake within a lesion involving the medial left iliac bone. 5. Several solid bilateral pulmonary nodules are noted, some of which are slightly increased in size consistent with metastases. Low-level uptake is identified in the left upper lobe nodule similar to the prior PET-CT. 6. Interval increase in abnormal uptake in the left lateral wall of the rectum concerning for possible malignancy. 7. Mild new uptake in the anterior right lobe of the liver is noted without a well-defined lesion on the noncontrast CT images. This uptake may be physiologic in nature. The possibility of a metastasis in this location cannot be entirely excluded. Assessment of the liver parenchyma is limited without intravenous contrast. 8. Persistent uptake in the region of the apex of the most posterior left mandibular tooth has significantly increased. Although this may represent periodontal disease, a metastatic lesion is not excluded. 9. Large left and small right pleural effusions. 10. Additional nonurgent findings as detailed above.
== END 2024-01-21 10:47 | disposition home or self-care (01) ==
PROVIDERS: PCP Family Medicine; Visit Provider Nurse Practitioner Family
DX: C79.51 Secondary malignant neoplasm of bone (principal); C50.919 Malignant neoplasm of unspecified site of unspecified female breast; C78.00 Secondary malignant neoplasm of unspecified lung; R93.89 Abnormal findings on diagnostic imaging of other specified body structures; R91.8 Other nonspecific abnormal finding of lung field; J90 Pleural effusion, not elsewhere classified; K75.3 Granulomatous hepatitis, not elsewhere classified; D30.02 Benign neoplasm of left kidney; D16.9 Benign neoplasm of bone and articular cartilage, unspecified; R93.5 Abnormal findings on diagnostic imaging of other abdominal regions, including retroperitoneum; R93.7 Abnormal findings on diagnostic imaging of other parts of musculoskeletal system
CPT/HCPCS: 78815; A9552

== ENCOUNTER 2024-02-17 09:04 | Oncology outpatient (recurring) (ONCR) | payer MEDICARE, SELFPAY ==
[2024-02-17 09:38] LABS: Basophils % 0.6 %; Eosinophils # 0.2 10^3/uL (0.0-0.8); Eosinophils % 3.1 %; Hematocrit 41.9 % (36-47); Lymphocytes # 1.3 10^3/uL (0.8-4.8); Lymphocytes % 19.7 %; Mean Corpuscular HGB Conc 32.2 g/dL (30-55); Mean Corpuscular Hemoglobin 28.4 pg (27-33); Mean Platelet Volume 9.7 fL (7.4-10.4); Monocytes # 0.5 10^3/uL (0.2-0.9); Monocytes % 8.2 %; Neutrophils # 4.34 10^3/uL (1.8-7.7); Neutrophils % 68.2 %; Nucleated Red Blood Cells % 0 %; Platelet Count 236 10^3/cmm (157-399); Red Blood Count 4.76 10^6/uL (3.85-5.65); Red Cell Distribution Width 13.4 % (12.1-15.1); White Blood Count 6.36 10^3/uL (3.29-11.43)
[2024-02-17 10:02] LABS: Alanine Aminotransferase 12 U/L (0-33); Albumin Level 4.2 g/dL (3.5-5.2); Alkaline Phosphatase 64 U/L (35-105); Aspartate Amino Transferase 19 U/L (0-32); Blood Urea Nitrogen 17 mg/dL (8-23); CA 15-3 59.1 U/mL (0-25); Calcium 8.9 mg/dL (8.5-10.5); Carbon Dioxide 27 mmol/L (22-29); Chloride 102 mmol/L (98-107); Globulin 2.7 g/dL (1.3-4.6); Glucose 125 mg/dL (65-115); Osmolality Calculated 295 mOsm/kg (285-295); Sodium 141 mmol/L (136-145); Total Bilirubin 0.4 mg/dL (0.15-1.2); Total Protein 6.9 g/dL (6.6-8.7)
[2024-02-17 10:08] LABS: Anion Gap 16.2 (5-19); Potassium 4.2 mmol/L (3.5-5.1)
[2024-02-17 11:00] VITALS: BP 136/77; PULSE 100; RESP 16; TEMP 36.4; O2SAT 95
[2024-02-17] MEDS: zoledronic acid (Zometa) 4 MG/100 ML PIGGYBACK 400 MG IV (11:06)
[2024-02-17 11:25] VITALS: BP 129/78; PULSE 97; RESP 16; TEMP 36.4; O2SAT 98
== END 2024-02-24 23:59 | disposition home or self-care (01) ==
PROVIDERS: Nurse Practitioner Family; PCP Family Medicine; Visit Provider Internal Medicine Medical Oncology
DX: C50.919 Malignant neoplasm of unspecified site of unspecified female breast (principal); C79.51 Secondary malignant neoplasm of bone; Z79.83 Long term (current) use of bisphosphonates; Z79.899 Other long term (current) drug therapy; C78.2 Secondary malignant neoplasm of pleura
CPT/HCPCS: 80053; 85025; 86300; 96365; 99214; J3489

== ENCOUNTER 2024-03-16 12:08 | Oncology outpatient (recurring) (ONCR) | payer MEDICARE, SELFPAY ==
--- NOTE | 2024-02-25 12:54 | N.ONRAD NP_ITS ---
Radiation Oncology New Patient Visit Patient: Brooke Robert MR#: [id number] : 1945 Age: 78 Sex: Female Dictated by: William Figueredo M.D. 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 Radiotherapy to date: Summary > No prior radiation therapy. Chief Complaint: I have intermittent back pain that is controlled by Tylenol. History of Present Illness: This is a very pleasant 78-year-old female who looks younger than stated age and healthier than office notes. She is seen due to intermittent pain in her low back. She gives a remote history of node positive breast cancer being treated with mastectomy in 1988. She had adjuvant chemotherapy and hormonal treatment with tamoxifen but stopped after a year due to intolerance. She then was diagnosed with endometrial carcinoma in 2006 and had a hysterectomy. Patient presented in July 2015 with multiple pulmonary symptoms and weight loss. CT Chest 08/15/2015 showed diffuse metastatic disease in the lung with a larger left pleural effusion, superior mediastinal mass and and bony metastasis. Thoracentesis was performed which was positive for malignancy of a breast primary. It was ER/SC +. Tumor markers including CEA 15-3 151 and CA 27-29 was 162. She was treated at that time with letrozole 2.5 mg daily. She was treated with PALBOCICLIB in addition to letrozole. She did have some problems with her medication and dose reduced PALBOCICLIB with good results. Follow-up imaging in March 2023 due to increasing CEA 15-day #3 showed innumerable metastatic nodules throughout both lungs. There was also mediastinal adenopathy noted. There was also innumerable blastic and sclerotic metastatic bony lesions. A repeat PET/CT on 05/28/2023 showed significant interval increase in soft tissue densities in the lung and an adjacent left lower lobe consolidation. There was also increase in the number of pulmonary nodules as well as osseous formations. She began FULVESTRANT & ALPELISIB on 09/12/2023, but due to side effects, her ALPELISIB was stopped. She has now gotten insurance approval for ELACESTRANT. She now presents with vague thoracic pain with PET + T8-3 0.2 x 2.2 cm (5.9) SEE report below. Current Medications: ALPRAZolam, aLPRAZolam, celeXA, celeXA, cetirizine HCl, cimetidine, colace, compazine, docusate Sodium, femara, femara, flonase, hydrochlorothiazide, hydrochlorothiazide, ibrance, ibrance, lasix, lORazepam, metoprolol Succinate ER, ondansetron HCl, pantoprazole Sodium, potassium Chloride ER, protonix, pure CBD, raNITidine HCl, valium, ventolin HFA, zyrTEC Allergy. Allergies: nitrates, msg, sulfa, Demerol, nasids and latex. Medical History: Breast cancer in 1988, endometrial cancer in 2006, hypertension, pneumonia in 2016. No history of collagen vascular disease. No previous radiation therapy. Surgical History: Adenoidectomy in 1949, breast reconstruction in 1988, cholecystectomy in 1993, covid vaccine #1 in 06/2020, covid vaccine #2 in 07/2020, d & C in 1973, flu vaccine on 03/19/2019, hysterectomy in 2006, knee surgery in 1969, lumpectomy in 1985, lumpectomy in 1972, mastectomy in 1988 (double) and tonsillectomy in 1948. Family History: Father is at age 61 - heart attack. Mother is at age 93 - liver disease. Sister is alive. Breast cancer in maternal aunt, stomach cancer in paternal grandfather, prostate cancer in maternal grandfather Social History: Last screened on 07/28/2021 - Never smoked. Last screened on 07/28/2021 - Drinks occasionally. Patient indicated access to the following support systems: lives with spouse, significant other, family, or friends, lives in own house, supportive family/friends willing to assist with needs, and adequate transportation available for expected visits. Patient indicated the following nutritional habits: regular meals. Patient indicated participation in the following forms of activity: daily activities and occasional exercise. Current Complaints / Review of Systems: As noted above Vital Signs: Performed on 02/25/2024 10:25 AM BMI - 26.001 kg/m2 (high), Height - 68 in, Weight - 171 lbs, Temperature - 98.3 f, Pulse - 93 /min, Respiration - 18 /min, O2 Sat - 92 % (low), Pain - 3, Fatigue - 0 and BP - 151/ 74 mm(hg)(high/). Physical Exam: Alert and oriented and answers questions appropriately. Neck collar: No lymphadenopathy Lungs: CTA Abdomen: Soft nontender with no hepatosplenomegaly. Extremities bilaterally symmetrical and intact x 4. Negative Homans' sign. No peripheral edema noted. Vertebral exam: No reproducible bony tenderness. 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 Lab: NOTEDABOVE Imaging: PET/CT Skull Base to Mid-thigh Exam date and time: 01/21/2024 11:42 AM Age: 78 years old Clinical indication: Condition or disease; Primary cancer: Metastatic breast CA; Follow-up oncological assessment; Prior surgery; Surgery date: 6+ months; Surgery type: Bilat mastectomy. Gb. ; Additional info: Metastatic breast CA, surveillance LABS AND CLINICAL REPORTS: Glucose: 104 mg/dl Treatment strategy for malignancy (PET staging): Restaging (PS) TECHNIQUE: Imaging protocol: Following at least four-hour fasting and following the injection of radiopharmaceutical, low dose CT images were obtained. Then, PET images were obtained. Attenuation corrected images were constructed using the CT scan. Fused images of PET and CT were reviewed. The standardized uptake values (SUV) reported below are maximum values within a region of interest, expressed in gm/ml. Exam includes orbital meatal line to mid-thigh. Radiopharmaceutical: 10.39 mCi F-18 FDG (Fluorodeoxyglucose), IV. Time of imaging post radiopharmaceutical administration: 1 hour Injection site: Left hand COMPARISON: CT chest 06/24/2023, PT PET skulltothigh SUBSEQ [id number] 05/28/2023 11:38 AM FINDINGS: Brain: Visualized brain has normal physiologic uptake. Teeth: Uptake in the region of lucency surrounding the apex of the most posterior left mandibular molar is noted, SUV max 8.2 (previously 4.6) on series 301, image 32. Pharynx: No abnormal uptake. Larynx: No abnormal uptake. Lungs, pleura and trachea: Large left and small right pleural effusions are present. A posterior left perihilar mass containing a surgical clip is noted, SUV max 5.0 (previously 7.2). Assessment of the size of the mass is limited secondary to adjacent patchy consolidation throughout the left lower lobe which also demonstrates elevated uptake, SUV max 4.4 (previously 4.0) on series 202, image 219. The previously noted solid nodule measuring 9-10 mm (similar in size) in the anterior left upper lobe on series 202, image 255, demonstrates an SUV max 2.0 (previously 1.9). Several additional solid bilateral pulmonary nodules are present, some of which are slightly increased in size compared with the prior PET-CT without significant uptake. Examples: In the right lung apex measuring 7 mm, SUV max 1.6 (previously 1.4). Increased size of a posterior right lower lobe nodule measuring 5-6 mm (previously 2 mm on series 202, image 240, SUV max 2.0. Increased size of an anteromedial left upper lobe nodule measuring 6 mm (previously 5 mm on series 2, image 249, SUV max 1.4. Heart: Normal physiologic uptake. Mediastinal space: No abnormal uptake. Liver: A subtle focus of subcapsular uptake in the anterior right lobe of the liver series 301, image 46 is noted, SUV max 4.5, without a well-defined lesion on the CT images. Normal physiologic uptake in the liver demonstrates an SUV max 3.4, SUV mean 2.7. Calcified granulomas in the liver are present. Gallbladder and biliary ducts: No abnormal uptake. Pancreas: No abnormal uptake. Spleen: No abnormal uptake. There are calcified granulomas in the spleen. Adrenal glands: No abnormal uptake. Kidneys and ureters: Normal physiologic uptake. A large low-density lesion arises exophytically from the inferior pole of the left kidney compatible with a probable benign cyst. Stomach and bowel: Focal uptake in the rectal wall on the left is noted, SUV max 22.4 (previously 13.8) on image 247, associated with a probable soft tissue density nodule measuring 1.6 x 1.[address] image 82 of series 202. Reproductive: The uterus is not identified, likely surgically absent. No abnormal uptake. Vasculature: No abnormal uptake. Lymph nodes: Mild abnormal elevated uptake in the right hilar region is new, SUV max 3.7 on series 202, image 233 without a well-defined lymph node or mass in the CT images. Uptake in the left hilar region is elevated, SUV max 4.3 (previously 6.3) on image 250, likely within a cluster of lymph nodes involving the aortopulmonary window measuring 2.6 x 3.2 cm (previously 3.0 x 3.7 cm) on image 248. Skeleton: Numerous radiotracer avid osseous lesions are overall increased in number, size and radiotracer activity. Examples: A sclerotic lesion in the C2 vertebral body measures 3.0 x 1.6 cm (previously 1.9 x 1.4 cm) on image 307, SUV max 5.8 (previously 4.4); new uptake in the C3 vertebral body without a well-defined lesion of the CT images, SUV max 8.7 on image 301; new uptake in the base of the left glenoid in a sclerotic lesion measuring 1.5 x 0.8 cm, SUV max 8.4; new uptake in the right glenoid, SUV max 6.5 on image 269 within a 1.5 x 1.7 cm region of new sclerosis. T8 vertebral body within a sclerotic lesion measuring 3.2 x 2.2 cm (previously 1.6 x 1.2 cm), SUV max 5.9 (previously 3.8); L3 vertebral body within a sclerotic lesion measuring 1.3 cm (previously 1.1 cm), SUV max 4.2 (previously 4.0); within the distal left humerus, SUV max 7.1 (previously 4.5) on image 204. Numerous new foci of mottled sclerotic density or radiotracer avid in the medial right iliac bone, SUV max 11.3 on image 115. New posterior right sacral uptake, SUV max 7.3 on image 113 within a region of ill-defined sclerosis. New uptake at the posterior base of the left femoral neck, SUV max 4.2 on image 73 within a region of mild ill-defined sclerosis. There is increased mottled sclerotic density in the medial left iliac bone with interval decrease in uptake, SUV max 4.9 (previously 6.2). Soft tissues: No abnormal uptake. Bilateral breast implants are noted, with evidence of probable partial collapse of the inner membranes bilaterally. There are numerous surgical clips along the bilateral pelvic sidewalls. METRICS: Mediastinal blood pool: SUV max 2.8, SUV mean 2.2 PET/PET skull to thigh SUBS [id number] IMPRESSION: 1. Interval decrease in abnormal uptake within a posterior left perihilar mass which may reflect partial response to therapy. 2. Left lower lobe consolidation demonstrates slightly increased abnormal uptake which may be inflammatory or malignant in etiology. 3. Slight interval decrease in size in a probable cluster of lymph nodes or mass in the aortopulmonary window with slightly decreased uptake. There is new uptake in the right hilar region, likely within small lymph nodes. 4. Overall progression of radiotracer avid osseous metastatic disease, with the exception of slightly decreased uptake within a lesion involving the medial left iliac bone. 5. Several solid bilateral pulmonary nodules are noted, some of which are slightly increased in size consistent with metastases. Low-level uptake is identified in the left upper lobe nodule similar to the prior PET-CT. 6. Interval increase in abnormal uptake in the left lateral wall of the rectum concerning for possible malignancy. 7. Mild new uptake in the anterior right lobe of the liver is noted without a well-defined lesion on the noncontrast CT images. This uptake may be physiologic in nature. The possibility of a metastasis in this location cannot be entirely excluded. Assessment of the liver parenchyma is limited without intravenous contrast. 8. Persistent uptake in the region of the apex of the most posterior left mandibular tooth has significantly increased. Although this may represent periodontal disease, a metastatic lesion is not excluded. 9. Large left and small right pleural effusions. 10. Additional nonurgent findings as detailed above. Impression: Left breast cancer treated with mastectomy in 1988 Receptor Therapy followed Multiple chemotherapy and immunotherapy provided with progression Metastatic DS- Bone /Lung-TNTC Pain controlled by Tylenol at this time Plan: Options were discussed in detail with the patient. Patient is starting new systemic therapy. Patient wishes to see reevaluate with imaging and 3 to 6 months before embarking on XRT. At this time we would hold XRT but based on findings would would treat left femoral neck and symptomatic bone mets if systemic therapy shows progression on imaging. Patient knows to call us should her pain progress on treatment. Signed by: 02/25/2024 12:52:32 PM <<Signature on File>> Time spent with patient: 60 minutes was devoted to preparation, imaging review and patient discussion and examination. CPT Code: CPT Code:
[2024-03-16 12:38] LABS: Basophils % 0.6 %; Eosinophils # 0.1 10^3/uL (0.0-0.8); Hematocrit 40.5 % (36-47); Lymphocytes # 1.1 10^3/uL (0.8-4.8); Lymphocytes % 16.6 %; Mean Corpuscular HGB Conc 31.9 g/dL (30-55); Mean Corpuscular Hemoglobin 27.5 pg (27-33); Mean Corpuscular Volume 86.4 fl (85-98); Mean Platelet Volume 9.4 fL (7.4-10.4); Monocytes # 0.5 10^3/uL (0.2-0.9); Monocytes % 7.3 %; Neutrophils # 4.86 10^3/uL (1.8-7.7); Neutrophils % 73.3 %; Nucleated Red Blood Cells % 0 %; Platelet Count 220 10^3/cmm (157-399); Red Blood Count 4.69 10^6/uL (3.85-5.65); White Blood Count 6.62 10^3/uL (3.29-11.43)
[2024-03-16 14:01] LABS: Alanine Aminotransferase 9 U/L (0-33); Albumin Level 4.2 g/dL (3.5-5.2); Alkaline Phosphatase 66 U/L (35-105); Anion Gap 18.4 (5-19); Aspartate Amino Transferase 14 U/L (0-32); Blood Urea Nitrogen 23 mg/dL (8-23); Calcium 8.7 mg/dL (8.5-10.5); Carbon Dioxide 25 mmol/L (22-29); Chloride 101 mmol/L (98-107); Globulin 2.7 g/dL (1.3-4.6); Glucose 185 mg/dL (65-115); Osmolality Calculated 300 mOsm/kg (285-295); Potassium 3.4 mmol/L (3.5-5.1); Sodium 141 mmol/L (136-145); Total Bilirubin 0.3 mg/dL (0.15-1.2); Total Protein 6.9 g/dL (6.6-8.7)
[2024-03-16 14:04] LABS: CA 15-3 131.9 U/mL (0-25)
== END 2024-03-26 23:59 | disposition home or self-care (01) ==
PROVIDERS: Nurse Practitioner Family; PCP Family Medicine; Visit Provider Internal Medicine Medical Oncology
DX: Z53.9 Procedure and treatment not carried out, unspecified reason (principal); C50.919 Malignant neoplasm of unspecified site of unspecified female breast; C79.51 Secondary malignant neoplasm of bone; C78.2 Secondary malignant neoplasm of pleura; Z79.83 Long term (current) use of bisphosphonates; Z79.899 Other long term (current) drug therapy; Z17.0 Estrogen receptor positive status [ER+]; Z79.818 Long term (current) use of other agents affecting estrogen receptors and estrogen levels; R73.9 Hyperglycemia, unspecified; F41.8 Other specified anxiety disorders; Z79.4 Long term (current) use of insulin; C78.01 Secondary malignant neoplasm of right lung; C78.02 Secondary malignant neoplasm of left lung; Z90.13 Acquired absence of bilateral breasts and nipples; C77.1 Secondary and unspecified malignant neoplasm of intrathoracic lymph nodes
CPT/HCPCS: 80053; 85025; 86300; 99205; 99214

== ENCOUNTER 2024-04-13 12:09 | Oncology outpatient (recurring) (ONCR) | payer MEDICARE, SELFPAY ==
[2024-04-13 13:03] VITALS: BP 167/88; PULSE 63; RESP 16; TEMP 35.9; O2SAT 95
[2024-04-13 13:34] LABS: Basophils % 0.4 %; Eosinophils # 0.1 10^3/uL (0.0-0.8); Hematocrit 36.6 % (36-47); Lymphocytes % 13.5 %; Mean Corpuscular HGB Conc 32.5 g/dL (30-55); Mean Corpuscular Hemoglobin 28.8 pg (27-33); Mean Corpuscular Volume 88.6 fl (85-98); Mean Platelet Volume 9.7 fL (7.4-10.4); Monocytes # 0.6 10^3/uL (0.2-0.9); Monocytes % 7.8 %; Neutrophils # 5.95 10^3/uL (1.8-7.7); Neutrophils % 76.9 %; Nucleated Red Blood Cells % 0 %; Platelet Count 240 10^3/cmm (157-399); Red Blood Count 4.13 10^6/uL (3.85-5.65); Red Cell Distribution Width 13.1 % (12.1-15.1); White Blood Count 7.73 10^3/uL (3.29-11.43)
[2024-04-13 14:11] LABS: Alanine Aminotransferase 9 U/L (0-33); Albumin Level 3.9 g/dL (3.5-5.2); Alkaline Phosphatase 65 U/L (35-105); Aspartate Amino Transferase 16 U/L (0-32); Blood Urea Nitrogen 23 mg/dL (8-23); CA 15-3 140.4 U/mL (0-25); Calcium 8.9 mg/dL (8.5-10.5); Carbon Dioxide 28 mmol/L (22-29); Chloride 105 mmol/L (98-107); Creatinine Clr Calc Pharmacy 61.0962; Globulin 2.8 g/dL (1.3-4.6); Glucose 98 mg/dL (65-115); Osmolality Calculated 296 mOsm/kg (285-295); Sodium 141 mmol/L (136-145); Total Bilirubin 0.3 mg/dL (0.15-1.2); Total Protein 6.7 g/dL (6.6-8.7)
[2024-04-13 14:13] LABS: Anion Gap 12.3 (5-19); Lactate Dehydrogenase 148 U/L (135-214); Potassium 4.3 mmol/L (3.5-5.1)
[2024-04-13] MEDS: zoledronic acid (Zometa) 4 MG/100 ML PIGGYBACK 400 MG IV (14:20)
[2024-04-13 14:44] VITALS: BP 158/77; PULSE 76; RESP 16; TEMP 36.9; O2SAT 97
== END 2024-04-25 23:59 | disposition home or self-care (01) ==
PROVIDERS: Internal Medicine Hematology & Oncology; PCP Family Medicine; Visit Provider Internal Medicine Medical Oncology
DX: C79.51 Secondary malignant neoplasm of bone; C78.2 Secondary malignant neoplasm of pleura; Z79.83 Long term (current) use of bisphosphonates; Z79.899 Other long term (current) drug therapy; Z17.0 Estrogen receptor positive status [ER+]; Z79.818 Long term (current) use of other agents affecting estrogen receptors and estrogen levels; R73.9 Hyperglycemia, unspecified; F41.8 Other specified anxiety disorders; Z79.4 Long term (current) use of insulin; C78.01 Secondary malignant neoplasm of right lung; C78.02 Secondary malignant neoplasm of left lung; Z85.42 Personal history of malignant neoplasm of other parts of uterus; Z85.3 Personal history of malignant neoplasm of breast; Z90.12 Acquired absence of left breast and nipple; C50.911 Malignant neoplasm of unspecified site of right female breast
CPT/HCPCS: 80053; 83615; 85025; 86300; 96365; 99214; J3489

== ENCOUNTER 2024-05-25 09:30 | Oncology outpatient (recurring) (ONCR) | payer MEDICARE, SELFPAY ==
--- NOTE | 2024-04-27 12:30 | CTR_ITS ---
PROCEDURE INFORMATION: Exam: CT Chest With Contrast; Diagnostic Exam date and time: 04/27/2024 1:49 PM Age: 78 years old Clinical indication: Condition or disease; Primary cancer: Metastatic breast cancer; Prior surgery; Surgery date: 6+ months; Surgery type: Breast implants, hyst; Additional info: Followup metastatic breast cancer TECHNIQUE: Imaging protocol: Diagnostic computed tomography of the chest with contrast. Radiation optimization: All CT scans at this facility use at least one of these dose optimization techniques: automated exposure control; mA and/or kV adjustment per patient size (includes targeted exams where dose is matched to clinical indication); or iterative reconstruction. Contrast material: OMNI 350; Contrast volume: 100 ml; Contrast route: INTRAVENOUS (IV); COMPARISON: PT PET skull to thigh SUBS [id number] 01/21/2024 11:42 AM RADIATION DOSE METRICS: Total DLP (mGy-cm): 912.05 FINDINGS: Lungs: Atelectatic changes at each lung base. Pleural spaces: Small right and moderate left pleural effusion. Heart: Unremarkable. No cardiomegaly. No pericardial effusion. Lymph nodes: Visible central lymph nodes are not pathologically enlarged. Vasculature: Unremarkable. No aortic aneurysm. Bones/joints: Unremarkable. No acute fracture. Soft tissues: Bilateral breast implant. PROCEDURE INFORMATION: Exam: CT Abdomen And Pelvis With Contrast Exam date and time: 04/27/2024 1:49 PM Age: 78 years old Clinical indication: Condition or disease; Primary cancer: Metastatic breast cancer; Prior surgery; Surgery date: 6+ months; Surgery type: Breast implants, hyst; Additional info: Followup metastatic breast cancer TECHNIQUE: Imaging protocol: Computed tomography of the abdomen and pelvis with contrast. Radiation optimization: All CT scans at this facility use at least one of these dose optimization techniques: automated exposure control; mA and/or kV adjustment per patient size (includes targeted exams where dose is matched to clinical indication); or iterative reconstruction. Contrast material: OMNI 350; Contrast volume: 100 ml; Contrast route: INTRAVENOUS (IV); COMPARISON: PT PET skull to thigh SUBS [id number] 01/21/2024 11:42 AM RADIATION DOSE METRICS: Total DLP (mGy-cm): 912.05 FINDINGS: Liver: Hepatic metastasis, the largest 17 mm in the right lobe. Gallbladder and biliary ducts: Normal. No calcified stones. No ductal dilation. Pancreas: Normal. No ductal dilation. Spleen: Normal. No splenomegaly. Adrenal glands: Normal. No mass. Kidneys and ureters: Left renal cysts. Stomach and bowel: Unremarkable. No obstruction. No mucosal thickening. Appendix: No evidence of appendicitis. Intraperitoneal space: Unremarkable. No free air. No significant fluid collection. Vasculature: Unremarkable. No abdominal aortic aneurysm. Lymph nodes: Unremarkable. No enlarged lymph nodes. Urinary bladder: Unremarkable as visualized. Reproductive: Unremarkable as visualized. Bones/joints: Predominantly sclerotic bony metastasis appear stable. Soft tissues: Unremarkable. Other findings: Calcified splenic granulomata. CT/CT chest abdpel w/*[id number] IMPRESSION: Stable widespread metastatic disease. IMPRESSION: Osseous and hepatic metastases, relatively unchanged. COMMENTS: Consistent with the [employer]'s Incidental Findings Committee white paper (J Am Sebastian Radiol 2018): Any incidental renal lesion less than 1 cm or classified as too small to characterize, or any incidental cystic renal lesion characterized as simple-appearing, is likely benign. No follow-up imaging is recommended for these lesions per consensus recommendations based on imaging criteria.
[2024-04-27] MEDS: iohexol 350 mg/mL 500 mL Btl (per mL) PO (13:18)
[2024-04-27] MEDS: iohexol 350 mg/mL 500 mL Btl (per mL) IV (13:57)
[2024-05-11 11:42] LABS: Basophils % 0.5 %; Eosinophils # 0.1 10^3/uL (0.0-0.8); Eosinophils % 1.2 %; Hematocrit 39.5 % (36-47); Lymphocytes # 0.8 10^3/uL (0.8-4.8); Lymphocytes % 9.9 %; Mean Corpuscular HGB Conc 32.4 g/dL (30-55); Mean Corpuscular Hemoglobin 28.6 pg (27-33); Mean Corpuscular Volume 88.2 fl (85-98); Mean Platelet Volume 9.6 fL (7.4-10.4); Monocytes # 0.6 10^3/uL (0.2-0.9); Monocytes % 7.9 %; Neutrophils # 6.08 10^3/uL (1.8-7.7); Neutrophils % 80.1 %; Nucleated Red Blood Cells % 0 %; Platelet Count 236 10^3/cmm (157-399); Red Blood Count 4.48 10^6/uL (3.85-5.65); Red Cell Distribution Width 13.3 % (12.1-15.1); White Blood Count 7.59 10^3/uL (3.29-11.43)
[2024-05-11 12:16] LABS: Alanine Aminotransferase 7 U/L (0-33); Alkaline Phosphatase 70 U/L (35-105); Blood Urea Nitrogen 26 mg/dL (8-23); CA 15-3 164.3 U/mL (0-25); Calcium 9.3 mg/dL (8.5-10.5); Carbon Dioxide 27 mmol/L (22-29); Chloride 101 mmol/L (98-107); Globulin 3.1 g/dL (1.3-4.6); Glucose 148 mg/dL (65-115); Osmolality Calculated 306 mOsm/kg (285-295); Sodium 144 mmol/L (136-145); Total Bilirubin 0.5 mg/dL (0.15-1.2); Total Protein 7.1 g/dL (6.6-8.7)
[2024-05-11 12:28] LABS: Anion Gap 20.1 (5-19); Potassium 4.1 mmol/L (3.5-5.1)
[2024-05-11 12:29] LABS: Aspartate Amino Transferase 15 U/L (0-32)
[2024-05-11 12:59] VITALS: BP 132/73; PULSE 76; RESP 16; TEMP 36.7; O2SAT 98
[2024-05-11] MEDS: zoledronic acid (Zometa) 4 MG/100 ML PIGGYBACK 400 MG IV (13:02)
[2024-05-11 13:31] VITALS: BP 164/77; PULSE 82; RESP 17; TEMP 36.2; O2SAT 97
== END 2024-05-26 23:59 | disposition home or self-care (01) ==
PROVIDERS: Internal Medicine Medical Oncology; PCP Family Medicine; Visit Provider Internal Medicine Hematology & Oncology
DX: Z53.9 Procedure and treatment not carried out, unspecified reason (principal)
CPT/HCPCS: 71260; 74177; 80053; 85025; 86300; 96365; J3489

== ENCOUNTER 2024-06-09 09:15 | Oncology outpatient (recurring) (ONCR) | payer MEDICARE, SELFPAY ==
[2024-06-09 09:44] LABS: Basophils % 0.4 %; Eosinophils # 0.2 10^3/uL (0.0-0.8); Eosinophils % 4.1 %; Hematocrit 41.3 % (36-47); Lymphocytes # 1.1 10^3/uL (0.8-4.8); Lymphocytes % 23.2 %; Mean Corpuscular HGB Conc 31.7 g/dL (30-55); Mean Corpuscular Hemoglobin 28.1 pg (27-33); Mean Corpuscular Volume 88.6 fl (85-98); Mean Platelet Volume 9.4 fL (7.4-10.4); Monocytes # 0.3 10^3/uL (0.2-0.9); Monocytes % 7.3 %; Neutrophils # 3.02 10^3/uL (1.8-7.7); Nucleated Red Blood Cells % 0 %; Platelet Count 202 10^3/cmm (157-399); Red Blood Count 4.66 10^6/uL (3.85-5.65); Red Cell Distribution Width 12.8 % (12.1-15.1); White Blood Count 4.65 10^3/uL (3.29-11.43)
[2024-06-09 10:15] LABS: Alanine Aminotransferase 8 U/L (0-33); Albumin Level 4.1 g/dL (3.5-5.2); Alkaline Phosphatase 84 U/L (35-105); Anion Gap 12.8 (5-19); Aspartate Amino Transferase 17 U/L (0-32); Blood Urea Nitrogen 26 mg/dL (8-23); CA 15-3 182.5 U/mL (0-25); Calcium 9.3 mg/dL (8.5-10.5); Carbon Dioxide 28 mmol/L (22-29); Chloride 103 mmol/L (98-107); Creatinine Clr Calc Pharmacy 61.9395; Globulin 2.9 g/dL (1.3-4.6); Glucose 110 mg/dL (65-115); Lactate Dehydrogenase 133 U/L (135-214); Osmolality Calculated 295 mOsm/kg (285-295); Potassium 3.8 mmol/L (3.5-5.1); Sodium 140 mmol/L (136-145); Total Bilirubin 0.2 mg/dL (0.15-1.2)
[2024-06-09] MEDS: zoledronic acid (Zometa) 4 MG/100 ML PIGGYBACK 400 MG IV (10:37)
[2024-06-09 11:02] VITALS: BP 165/77; PULSE 69; RESP 16; TEMP 36.6; O2SAT 98
== END 2024-06-09 23:59 | disposition home or self-care (01) ==
PROVIDERS: PCP Family Medicine; Visit Provider Internal Medicine Medical Oncology
DX: C50.911 Malignant neoplasm of unspecified site of right female breast; C79.51 Secondary malignant neoplasm of bone; Z79.83 Long term (current) use of bisphosphonates; Z79.899 Other long term (current) drug therapy; Z17.0 Estrogen receptor positive status [ER+]; C78.01 Secondary malignant neoplasm of right lung
CPT/HCPCS: 80053; 83615; 85025; 86300; 96365; 99214; J3489

== ENCOUNTER 2024-07-21 11:20 | Oncology outpatient (recurring) (ONCR) | payer MEDICARE, SELFPAY ==
[2024-07-21 11:51] LABS: Basophils % 0.4 %; Eosinophils # 0.2 10^3/uL (0.0-0.8); Eosinophils % 2.9 %; Hematocrit 38.9 % (36-47); Lymphocytes # 0.9 10^3/uL (0.8-4.8); Lymphocytes % 13.6 %; Mean Corpuscular HGB Conc 32.1 g/dL (30-55); Mean Corpuscular Hemoglobin 27.5 pg (27-33); Mean Corpuscular Volume 85.5 fl (85-98); Mean Platelet Volume 9.5 fL (7.4-10.4); Monocytes # 0.6 10^3/uL (0.2-0.9); Monocytes % 8.6 %; Neutrophils # 5.06 10^3/uL (1.8-7.7); Neutrophils % 74.2 %; Nucleated Red Blood Cells % 0 %; Platelet Count 234 10^3/cmm (157-399); Red Blood Count 4.55 10^6/uL (3.85-5.65); Red Cell Distribution Width 12.9 % (12.1-15.1); White Blood Count 6.83 10^3/uL (3.29-11.43)
[2024-07-21 12:18] LABS: Alanine Aminotransferase 10 U/L (0-33); Alkaline Phosphatase 72 U/L (35-105); Blood Urea Nitrogen 18 mg/dL (8-23); CA 15-3 173.4 U/mL (0-25); Carbon Dioxide 26 mmol/L (22-29); Chloride 103 mmol/L (98-107); Creatinine Clr Calc Pharmacy 59.2547; Globulin 2.8 g/dL (1.3-4.6); Glucose 112 mg/dL (65-115); Osmolality Calculated 289 mOsm/kg (285-295); Sodium 138 mmol/L (136-145); Total Bilirubin 0.4 mg/dL (0.15-1.2); Total Protein 6.8 g/dL (6.6-8.7)
[2024-07-21 12:21] LABS: Anion Gap 13.5 (5-19); Aspartate Amino Transferase 17 U/L (0-32); Potassium 4.5 mmol/L (3.5-5.1)
[2024-07-21] MEDS: zoledronic acid (Zometa) 4 MG/100 ML PIGGYBACK 400 MG IV (13:42)
--- NOTE | 2024-07-21 14:07 | XRR_ITS ---
PROCEDURE INFORMATION: Exam: XR Chest Exam date and time: 07/21/2024 2:11 PM Age: 79 years old Clinical indication: Shortness of breath; Prior surgery; Surgery date: 6+ months; Surgery type: Breast implants, hysterectomy; Diminished breath sounds at appointment today, covid + 2 wks ago, SOB since. History of breast and bone cancer; Additional info: Increased shortness of breath, decreased lung sounds lll TECHNIQUE: Imaging protocol: Radiologic exam of the chest. Views: 2 views. COMPARISON: CT chest abdpel w/*[id number] 04/27/2024 1:49 PM FINDINGS: Lungs: There is left lower lobe pneumonia versus atelectasis. Several small scattered pulmonary nodules are seen throughout the lungs, also present on the prior CT chest. Pleural spaces: There is a persistent [id number] sized left pleural effusion, also seen on the CT chest. Heart/Mediastinum: Within normal limits. No cardiomegaly. Bones/joints: There is diffuse osteopenia. Scattered blastic metastases are better seen on the prior CT chest. Other findings: None. XR/XR chest 2V* [id number] IMPRESSION: 1. Left lower lobe pneumonia versus atelectasis with a yrfyb-cs-[id number] sized left pleural effusion. Similar findings were seen on the CT chest from April 27, 2024. 2. Small scattered bilateral pulmonary nodules compatible with pulmonary metastases, also present on the prior CT. 3. Scattered blastic osseous metastases are better seen on the prior CT.
== END 2024-07-24 23:59 | disposition home or self-care (01) ==
PROVIDERS: PCP Family Medicine; Visit Provider Internal Medicine Medical Oncology
DX: C50.911 Malignant neoplasm of unspecified site of right female breast (principal); Z17.0 Estrogen receptor positive status [ER+]; C78.2 Secondary malignant neoplasm of pleura; C79.51 Secondary malignant neoplasm of bone; R06.02 Shortness of breath; R91.8 Other nonspecific abnormal finding of lung field; J90 Pleural effusion, not elsewhere classified; J18.9 Pneumonia, unspecified organism; Z79.899 Other long term (current) drug therapy
CPT/HCPCS: 71046; 80053; 85025; 86300; 96365; 99214; J3489

== ENCOUNTER 2024-08-18 10:00 | Oncology outpatient (recurring) (ONCR) | payer MEDICARE, SELFPAY ==
[2024-07-28 11:41] LABS: Basophils % 0.3 %; Eosinophils # 0.1 10^3/uL (0.0-0.8); Eosinophils % 1.8 %; Hematocrit 41.2 % (36-47); Lymphocytes # 0.8 10^3/uL (0.8-4.8); Lymphocytes % 11.4 %; Mean Corpuscular HGB Conc 31.8 g/dL (30-55); Mean Corpuscular Hemoglobin 27.5 pg (27-33); Mean Corpuscular Volume 86.6 fl (85-98); Mean Platelet Volume 9.6 fL (7.4-10.4); Monocytes # 0.6 10^3/uL (0.2-0.9); Monocytes % 8.8 %; Neutrophils # 5.11 10^3/uL (1.8-7.7); Neutrophils % 77.5 %; Nucleated Red Blood Cells % 0 %; Platelet Count 201 10^3/cmm (157-399); Red Blood Count 4.76 10^6/uL (3.85-5.65); Red Cell Distribution Width 12.9 % (12.1-15.1); White Blood Count 6.59 10^3/uL (3.29-11.43)
[2024-07-28 12:02] LABS: Alanine Aminotransferase 8 U/L (0-33); Alkaline Phosphatase 79 U/L (35-105); Anion Gap 15.5 (5-19); Aspartate Amino Transferase 16 U/L (0-32); Blood Urea Nitrogen 22 mg/dL (8-23); Calcium 9.4 mg/dL (8.5-10.5); Carbon Dioxide 26 mmol/L (22-29); Chloride 98 mmol/L (98-107); Globulin 3.3 g/dL (1.3-4.6); Glucose 131 mg/dL (65-115); Osmolality Calculated 287 mOsm/kg (285-295); Potassium 3.5 mmol/L (3.5-5.1); Sodium 136 mmol/L (136-145); Total Bilirubin 0.4 mg/dL (0.15-1.2); Total Protein 7.3 g/dL (6.6-8.7)
[2024-07-28 15:08] LABS: Thyroid Stimulating Hormone 1.32 uIU/mL (0.27-4.20)
--- NOTE | 2024-07-31 14:00 | PETR_ITS ---
PROCEDURE INFORMATION: Exam: PET/CT Skull Base to Mid-thigh Exam date and time: 07/31/2024 3:19 PM Age: 79 years old Clinical indication: Condition or disease; Follow-up oncological assessment; Condition/disease: Secondary malignant neoplasm of bone, secondary malignant neoplasm of lung; Prior surgery; Surgery date: 6+ months; Surgery type: Breast implants, hyst; Additional info: Restaging LABS AND CLINICAL REPORTS: Glucose: 107 mg/dl Treatment strategy for malignancy (PET staging): Restaging (PS) TECHNIQUE: Imaging protocol: Following at least four-hour fasting and following the injection of radiopharmaceutical, low dose CT images were obtained. Then, PET images were obtained. Attenuation corrected images were constructed using the CT scan. Fused images of PET and CT were reviewed. The standardized uptake values (SUV) reported below are maximum values within a region of interest, expressed in gm/ml. Exam includes orbital meatal line to mid-thigh. SUV normalization method: BodyWeight Radiopharmaceutical: 10.96 mCi F-18 FDG (Fluorodeoxyglucose), IV. Time of imaging post radiopharmaceutical administration: 45 minutes Injection site: left ac COMPARISON: PT PET skull to thigh SUBS [id number] 01/21/2024 FINDINGS: Brain: Normal physiologic uptake. Pharynx: No abnormal uptake. Larynx: No abnormal uptake. Lungs, pleura and trachea: Increased uptake within perihilar mass in the left lower lobe currently measures 5.7 SUV increased from 4.4 SUV on the prior exam. There is stable small nodule in the left upper lobe with low-grade uptake of 1.9 SUV. There is stable moderate the left and small right pleural effusion with no abnormal uptake along the pleural lining. Heart: Unremarkable. Mediastinal space: No abnormal uptake. Liver: No abnormal uptake. Maximum uptake is 3.6 SUV. Gallbladder and biliary ducts: No abnormal uptake. Pancreas: No abnormal uptake. Spleen: No abnormal uptake. No splenomegaly. Stable small calcified granulomas. Adrenal glands: No abnormal uptake. No nodules. Kidneys and ureters: Normal physiologic uptake. No hydronephrosis. Stable large simple cyst exophytic caudally from the lower pole of the left kidney. Stomach and bowel: There is stable intense linear uptake along the left wall of the rectum measuring 16.8 SUV, previously 22.4 SUV. Intraperitoneal and retroperitoneal spaces: No abnormal uptake. No ascites. Bladder: Normal physiologic uptake. Reproductive: No abnormal uptake. The uterus is absent post surgically. Vasculature: No abnormal uptake. No aortic aneurysm. Lymph nodes: No FDG avid lymphadenopathy in the neck, chest, abdomen, pelvis, and extremities. Skeleton: Multiple FDG avid bone metastases demonstrate mild mixed changes with overall progression. Many lesions increased in activity. For example, metastasis in the left glenoid increased from 8.4 SUV to 11.6 SUV; metastasis in the left scapular blade increased from 5.4 SUV to 9.1 SUV metastasis in the right glenoid increased from 6.5 SUV to 9.7 SUV; metastasis in the right aspect of T8 vertebral body increased from 5.9 SUV to 9.5 SUV; metastasis posteriorly in the right iliac bone on axial image 207 increased from 7.3 SUV to 12 SUV; metastasis anteriorly in the left acetabulum increased from 5.1 SUV to 8.7 SUV. There are multiple new FDG avid metastasis, for example the left clavicle measuring 10.1 SUV on axial image 54, superiorly in the right iliac bone on axial image 187 measuring 10.3 SUV, in the spinous process of L1 measuring 9.9 SUV on axial image 150. Some metastases decreased in uptake as for example the left humeral shaft intramedullary metastasis decreased from 7.1 SUV to 3.6 SUV, or right iliac bone metastasis on axial image 207 decreased from 11.3 SUV to 4.6 SUV. Soft tissues: Status post bilateral mastectomy with breast implants in place. PET/PET skull to thigh SUBS [id number] IMPRESSION: In comparison with 01/21/2024 there is progressive disease with increased size, number and degree of uptake within multifocal bone metastases. There is no significant change in mildly increased uptake within the malignant perihilar mass in the left lower lobe. There are stable bilateral pleural effusions larger on the left side. There is persistent intense focal uptake in the left wall of the rectum.
[2024-08-18 10:16] LABS: Basophils % 0.6 %; Eosinophils # 0.2 10^3/uL (0.0-0.8); Eosinophils % 2.2 %; Hematocrit 39.7 % (36-47); Lymphocytes # 0.9 10^3/uL (0.8-4.8); Lymphocytes % 12.6 %; Mean Corpuscular Hemoglobin 27.3 pg (27-33); Mean Corpuscular Volume 85.2 fl (85-98); Mean Platelet Volume 9.1 fL (7.4-10.4); Monocytes # 0.5 10^3/uL (0.2-0.9); Monocytes % 7.2 %; Neutrophils # 5.35 10^3/uL (1.8-7.7); Neutrophils % 77.1 %; Nucleated Red Blood Cells % 0 %; Platelet Count 245 10^3/cmm (157-399); Red Blood Count 4.66 10^6/uL (3.85-5.65); White Blood Count 6.93 10^3/uL (3.29-11.43)
[2024-08-18 10:34] LABS: Alanine Aminotransferase 8 U/L (0-33); Albumin Level 4.1 g/dL (3.5-5.2); Alkaline Phosphatase 64 U/L (35-105); Anion Gap 13.1 (5-19); Aspartate Amino Transferase 14 U/L (0-32); Blood Urea Nitrogen 18 mg/dL (8-23); Carbon Dioxide 27 mmol/L (22-29); Chloride 100 mmol/L (98-107); Globulin 3.3 g/dL (1.3-4.6); Glucose 116 mg/dL (65-115); Osmolality Calculated 285 mOsm/kg (285-295); Potassium 4.1 mmol/L (3.5-5.1); Sodium 136 mmol/L (136-145); Total Bilirubin 0.4 mg/dL (0.15-1.2); Total Protein 7.4 g/dL (6.6-8.7)
[2024-08-18] MEDS: zoledronic acid (Zometa) 4 MG/100 ML PIGGYBACK 400 MG IV (11:15)
[2024-08-18 11:36] VITALS: BP 170/73; PULSE 67; TEMP 36.5; O2SAT 92
== END 2024-08-24 23:59 | disposition home or self-care (01) ==
PROVIDERS: Nurse Practitioner; PCP Family Medicine; Visit Provider Nurse Practitioner Family
DX: Z53.9 Procedure and treatment not carried out, unspecified reason (principal); C50.911 Malignant neoplasm of unspecified site of right female breast; Z17.0 Estrogen receptor positive status [ER+]; C79.51 Secondary malignant neoplasm of bone; Z79.899 Other long term (current) drug therapy
CPT/HCPCS: 36415; 78815; 80053; 84443; 85025; 96365; 99214; A9552; J3489

== ENCOUNTER 2024-09-07 10:52 | Day surgery (SDC) | payer MEDICARE, SELFPAY ==
[2024-09-07 11:12] VITALS: BMI 26.6
[2024-09-07 11:17] VITALS: BP 168/99; PULSE 87; RESP 16; TEMP 36.6; O2SAT 92
--- NOTE | 2024-09-07 12:03 | US_ITS ---
WS: [id number] ULTRASOUND-GUIDED THORACENTESIS CLINICAL INFORMATION: increasing sob, known L pleural effusion COMPARISON: None. PROCEDURE: Informed consent: The risks, benefits, and alternatives of the procedure were discussed with the patient. Verbal and written consent was obtained. Timeout: A timeout was performed to confirm the correct patient, procedure, and site. Site: LEFT Preparation: A suitable skin site was identified. The patient was prepped and draped in usual sterile fashion. Lidocaine 1% was used for local anesthesia. Catheter: 4 Khmer One-Step catheter. Fluid Volume: 1000 ml Color: Clear yellow Discarded safely. Complications: None. US/ thoracentesis [id number] IMPRESSION: Uncomplicated ultrasound-guided LEFT thoracentesis. Removal of 1000 cc
--- NOTE | 2024-09-07 13:08 | XR_ITS ---
WS: [id number] CHEST XRAY TECHNIQUE: Portable chest. CLINICAL INFORMATION: post thoracentesis COMPARISON: None. FINDINGS: Heart: Cardiomegaly. Lungs: Small bilateral pleural effusions. Improved LEFT pleural effusion status post thoracentesis. No pneumothorax. No focal pneumonia. Bones: Osteopenia.. XR/XR chest 1V portable [id number] IMPRESSION: Improved LEFT pleural effusion. No pneumothorax post thoracentesis.
== END 2024-09-07 13:40 | disposition home or self-care (01) ==
LOC: GILAB 10:53
PROVIDERS: Radiology Neuroradiology; PCP Family Medicine; Visit Provider Nurse Practitioner Family
PROC: (CPT 32554; principal; 2024-09-07 13:00)
DX: J90 Pleural effusion, not elsewhere classified (principal)
CPT/HCPCS: 32555; 71045; 85610

== ENCOUNTER 2024-09-15 12:30 | Oncology outpatient (recurring) (ONCR) | payer MEDICARE, SELFPAY ==
[2024-09-02 14:18] LABS: Basophils % 0.5 %; Eosinophils # 0.1 10^3/uL (0.0-0.8); Eosinophils % 1.3 %; Hematocrit 41.4 % (36-47); Lymphocytes # 0.7 10^3/uL (0.8-4.8); Lymphocytes % 8.4 %; Mean Corpuscular HGB Conc 31.6 g/dL (30-55); Mean Corpuscular Hemoglobin 27.5 pg (27-33); Mean Platelet Volume 9.2 fL (7.4-10.4); Monocytes # 0.6 10^3/uL (0.2-0.9); Monocytes % 6.6 %; Nucleated Red Blood Cells % 0 %; Platelet Count 246 10^3/cmm (157-399); Red Blood Count 4.76 10^6/uL (3.85-5.65); Red Cell Distribution Width 13.2 % (12.1-15.1); White Blood Count 8.44 10^3/uL (3.29-11.43)
[2024-09-02 14:32] LABS: Alanine Aminotransferase 8 U/L (0-33); Albumin Level 3.8 g/dL (3.5-5.2); Alkaline Phosphatase 85 U/L (35-105); Anion Gap 16.5 (5-19); Aspartate Amino Transferase 13 U/L (0-32); Blood Urea Nitrogen 17 mg/dL (8-23); Calcium 8.9 mg/dL (8.5-10.5); Carbon Dioxide 26 mmol/L (22-29); Chloride 104 mmol/L (98-107); Glucose 131 mg/dL (65-115); Osmolality Calculated 299 mOsm/kg (285-295); Potassium 3.5 mmol/L (3.5-5.1); Sodium 143 mmol/L (136-145); Total Bilirubin 0.4 mg/dL (0.15-1.2); Total Protein 6.8 g/dL (6.6-8.7)
[2024-09-09 15:34] LABS: Basophils % 0.5 %; Eosinophils # 0.1 10^3/uL (0.0-0.8); Eosinophils % 1.3 %; Hematocrit 41.2 % (36-47); Lymphocytes # 0.7 10^3/uL (0.8-4.8); Lymphocytes % 9.1 %; Mean Corpuscular Hemoglobin 27.3 pg (27-33); Mean Corpuscular Volume 85.1 fl (85-98); Mean Platelet Volume 9.2 fL (7.4-10.4); Monocytes # 0.5 10^3/uL (0.2-0.9); Monocytes % 6.2 %; Neutrophils # 6.24 10^3/uL (1.8-7.7); Neutrophils % 82.5 %; Nucleated Red Blood Cells % 0 %; Platelet Count 239 10^3/cmm (157-399); Red Blood Count 4.84 10^6/uL (3.85-5.65); Red Cell Distribution Width 13.3 % (12.1-15.1); White Blood Count 7.57 10^3/uL (3.29-11.43)
[2024-09-09 16:01] LABS: Alanine Aminotransferase 7 U/L (0-33); Alkaline Phosphatase 78 U/L (35-105); Anion Gap 17.2 (5-19); Aspartate Amino Transferase 15 U/L (0-32); Blood Urea Nitrogen 14 mg/dL (8-23); Calcium 8.5 mg/dL (8.5-10.5); Carbon Dioxide 26 mmol/L (22-29); Chloride 98 mmol/L (98-107); Creatinine Clr Calc Pharmacy 60.4433; Free T4 Free Thyroxine 1.42 ng/dL (0.82-1.77); Glucose 162 mg/dL (65-115); Osmolality Calculated 290 mOsm/kg (285-295); Potassium 3.2 mmol/L (3.5-5.1); Sodium 138 mmol/L (136-145); T3 Free 2.8 PG/ML (2.0-4.4); Thyroid Stimulating Hormone 0.74 uIU/mL (0.27-4.20); Total Bilirubin 0.6 mg/dL (0.15-1.2)
[2024-09-15] MEDS: sodium chloride 0.9% 1,000 ML 999 ML IV (10:58)
[2024-09-15 11:13] LABS: Alanine Aminotransferase 8 U/L (0-33); Albumin Level 3.9 g/dL (3.5-5.2); Alkaline Phosphatase 84 U/L (35-105); Anion Gap 16.2 (5-19); Aspartate Amino Transferase 16 U/L (0-32); Blood Urea Nitrogen 12 mg/dL (8-23); Calcium 8.8 mg/dL (8.5-10.5); Carbon Dioxide 29 mmol/L (22-29); Chloride 100 mmol/L (98-107); Creatinine Clr Calc Pharmacy 60.7097; Globulin 2.9 g/dL (1.3-4.6); Glucose 117 mg/dL (65-115); Osmolality Calculated 295 mOsm/kg (285-295); Potassium 3.2 mmol/L (3.5-5.1); Sodium 142 mmol/L (136-145); Total Bilirubin 0.4 mg/dL (0.15-1.2); Total Protein 6.8 g/dL (6.6-8.7)
[2024-09-15] MEDS: zoledronic acid (Zometa) 4 MG/100 ML PIGGYBACK 400 MG IV (12:50)
[2024-09-15 13:12] VITALS: BP 166/71; PULSE 70; RESP 17; TEMP 36.6; O2SAT 94
== END 2024-09-23 23:59 | disposition home or self-care (01) ==
PROVIDERS: Nurse Practitioner Family; PCP Family Medicine; Visit Provider Internal Medicine Medical Oncology
DX: C79.51 Secondary malignant neoplasm of bone; Z85.3 Personal history of malignant neoplasm of breast; R19.7 Diarrhea, unspecified; R03.0 Elevated blood-pressure reading, without diagnosis of hypertension; J90 Pleural effusion, not elsewhere classified; R06.02 Shortness of breath; Z79.899 Other long term (current) drug therapy; Z53.9 Procedure and treatment not carried out, unspecified reason
CPT/HCPCS: 36415; 80053; 84439; 84443; 84481; 85025; 96361; 96365; 99214; 99215; J3489; J7030

== ENCOUNTER 2024-10-13 11:12 | Day surgery (SDC) | payer MEDICARE, SELFPAY ==
[2024-10-13 11:51] VITALS: BP 139/62; PULSE 80; RESP 18; TEMP 36.5; O2SAT 100; BMI 26.7
--- NOTE | 2024-10-13 12:05 | US_ITS ---
WS: [id number] ULTRASOUND-GUIDED THORACENTESIS, LEFT HISTORY: pleural effusion, LEFT Procedure, risks, and complications were explained to the patient. With the patient in an upright position, the skin over the LEFT posterior thorax was cleansed with ChloraPrep and anesthetized with 1% buffered lidocaine. A 5 Kittitian Yueh needle is inserted into the pleural fluid without complication. A pproximately 1000 cc of clear pleural fluid is removed without difficulty. There was additional pleural fluid present but the patient was beginning to complain of chest discomfort. / thoracentesis [id number] IMPRESSION: 1. LEFT thoracentesis yielding 1000 cc of fluid. 2. Chest radiograph to follow to evaluate for pneumothorax.
[2024-10-13 12:20] LABS: INR 1.11 (0.8-1.2)
[2024-10-13 12:52] VITALS: BP 144/63; PULSE 80; RESP 18; O2SAT 100
--- NOTE | 2024-10-13 12:52 | XR_ITS ---
WS: [id number] PORTABLE CHEST HISTORY: post thoracentesis COMPARISON: 10/06/2024 No pneumothorax status post LEFT thoracentesis. Moderate pleural effusion persists on the LEFT but is improved. There is mild pulmonary congestion. No pneumothorax. Scattered pulmonary nodules in the visualized lungs from patient's known metastatic disease. Cardiac size: Mildly enlarged cardiac silhouette. Mediastinum/Aorta: Mild atherosclerosis aorta. Osteopenia. XR/XR chest 1V portable [id number] IMPRESSION: 1. No pneumothorax status post LEFT thoracentesis. 2. Persistent but improved moderate LEFT pleural effusion. 3. Metastatic pulmonary nodules identified.
== END 2024-10-13 13:30 | disposition home or self-care (01) ==
PROVIDERS: Radiology Diagnostic Radiology; PCP Family Medicine; Visit Provider Nurse Practitioner
PROC: (CPT 32554; principal; 2024-10-13 12:00)
DX: C50.911 Malignant neoplasm of unspecified site of right female breast (principal); J91.0 Malignant pleural effusion; Z17.0 Estrogen receptor positive status [ER+]
CPT/HCPCS: 32555; 36415; 71045; 85610

== ENCOUNTER 2024-10-15 11:15 | Oncology outpatient (recurring) (ONCR) | payer MEDICARE, SELFPAY ==
[2024-10-06 09:20] LABS: Basophils % 0.4 %; Eosinophils # 0.1 10^3/uL (0.0-0.8); Eosinophils % 1.2 %; Lymphocytes # 0.7 10^3/uL (0.8-4.8); Lymphocytes % 10.4 %; Mean Corpuscular HGB Conc 31.6 g/dL (30-55); Mean Corpuscular Hemoglobin 28.7 pg (27-33); Mean Corpuscular Volume 90.9 fl (85-98); Mean Platelet Volume 9.7 fL (7.4-10.4); Monocytes # 0.5 10^3/uL (0.2-0.9); Monocytes % 6.8 %; Neutrophils # 5.59 10^3/uL (1.8-7.7); Neutrophils % 80.8 %; Nucleated Red Blood Cells % 0 %; Platelet Count 193 10^3/cmm (157-399); Red Blood Count 4.18 10^6/uL (3.85-5.65); Red Cell Distribution Width 15.9 % (12.1-15.1); White Blood Count 6.92 10^3/uL (3.29-11.43)
[2024-10-06 09:42] LABS: Alanine Aminotransferase 10 U/L (0-33); Albumin Level 4.1 g/dL (3.5-5.2); Alkaline Phosphatase 86 U/L (35-105); Anion Gap 13.4 (5-19); Aspartate Amino Transferase 20 U/L (0-32); Blood Urea Nitrogen 16 mg/dL (8-23); Calcium 9.2 mg/dL (8.5-10.5); Carbon Dioxide 34 mmol/L (22-29); Chloride 95 mmol/L (98-107); Creatinine Clr Calc Pharmacy 60.7097; Globulin 2.7 g/dL (1.3-4.6); Glucose 126 mg/dL (65-115); Osmolality Calculated 291 mOsm/kg (285-295); Potassium 3.4 mmol/L (3.5-5.1); Sodium 139 mmol/L (136-145); Total Bilirubin 0.7 mg/dL (0.15-1.2); Total Protein 6.8 g/dL (6.6-8.7)
--- NOTE | 2024-10-06 10:52 | XR_ITS ---
WS: [id number] Exam: XR chest 2V* [id number] Date/Time of Exam: 10/06/2024 11:03 AM Reason For Exam: shortness of breath Comparison 09/07/2024. Prominent left-sided pleural effusion has developed with significant compressive atelectasis of the LEFT lung. There is also RIGHT pleural effusion noted. Ill- defined soft tissue nodules noted in both lungs. No pneumothorax. Heart size probably within normal limits but the LEFT heart border is obscured. Ill-defined sclerotic areas noted in several upper lumbar and thoracic vertebra that might indicate bone metastasis. Advanced DJD of both shoulders. XR/XR chest 2V* [id number] IMPRESSION: 1. Development of prominent left-sided pleural effusion with significant compre ssive atelectasis of the upper and lower lobes of the LEFT lung. There is also right-sided pleural effusion unchanged. 2. There appears to be ill-defined soft tissue nodules in both lungs. 3. Several sclerotic areas identified in the spine that might indicate bone met astasis.
[2024-10-13] MEDS: zoledronic acid (Zometa) 4 MG/100 ML PIGGYBACK 400 MG IV (15:11)
[2024-10-13 15:45] VITALS: BP 142/68; PULSE 74; RESP 18; TEMP 36.4; O2SAT 95
--- NOTE | 2024-10-15 11:15 | USCV_ITS ---
Brooke Robert Age: 79 Gender: F : 1945 Exam Date: 10/15/2024 11:19 Ordering Phys: Padma Floyd APRN Technologist: SOULEYMANE Exam Location: [facility] – [place] Indication: SOB BP: 167 / 79 HR: 70 Rhythm: Sinus Technical Quality: Adequate MEASUREMENTS (Male / Female) Normal Values 2D ECHO LV Diastolic Diameter PLAX 4.2 cm 4.2 - 5.9 / 3.9 - 5.3 cm IVS Diastolic Thickness 1.1 cm 0.6 - 1.0 / 0.6 - 0.9 cm IVS Systolic Thickness 1.7 cm LVPW Diastolic Thickness 1.6 cm 0.6 - 1.0 / 0.6 - 0.9 cm LVPW Systolic Thickness 1.8 cm LVOT Diameter 2.0 cm LV Ejection Fraction 2D Teich 63.1 % LV Ejection Fraction MOD 4C 63.9 % LV Ejection Fraction MOD 2C 63.1 % LV Ejection Fraction 2C AL 63.5 % LA Diameter 3.3 cm RA Systolic Volume 4C AL 31.8 ml RA Systolic Volume 4C MOD 30.8 ml LA Sys Volume AL 37.5 cm cubed LA Sys Volume Index AL 19.1 cm cubed/m squared Aorta at Sinotubular Diameter 2.4 cm IVC Diameter 1.7 cm M-MODE LA Ao Ratio MM 1.4 AV Cusp Separation MM 1.3 cm DOPPLER AV Peak Velocity 129.0 cm/s LVOT Peak Velocity 73.0 cm/s AV Area Cont Eq vti 1.1 cm squared AV Area Cont Eq pk 1.8 cm squared MV Peak Velocity 102.0 cm/s MV Area PHT 4.6 cm squared Mitral E to A Ratio 1.1 TR Peak Velocity 170.0 cm/s TR Peak Gradient 11.6 mmHg TR Mean Velocity 143.0 cm/s TR Mean Gradient 8.4 mmHg TR Velocity Time Integral 48.4 cm PV Peak Velocity 71.7 cm/s RV Ejection Time 0.3 s FINDINGS Left Ventricle Normal left ventricular size, systolic function and wall thickness, with no regional wall motion abnormalities. Left ventricular ejection fraction is estimated at 60 %. Normal diastolic function. Right Ventricle The right ventricle is normal in size and function. Right Atrium The right atrium is normal in size. Left Atrium The left atrium is normal in size. Mitral Valve Structurally normal mitral valve without significant stenosis or prolapse. There is no mitral regurgitation. Aortic Valve Structurally normal aortic valve without significant sclerosis or stenosis. There is no aortic regurgitation. Tricuspid Valve Structurally normal tricuspid valve without significant stenosis or regurgitation. Pulmonary artery systolic pressure is normal. Pulmonic Valve Structurally normal pulmonic valve without significant stenosis. There is no pulmonic regurgitation. Pericardium Normal pericardium without effusion. Aorta Normal ascending aorta dimension. IVC The inferior vena cava appears normal. CONCLUSIONS Normal left ventricular size, systolic function and wall thickness, with no regional wall motion abnormalities. Left ventricular ejection fraction is estimated at 60 %. Normal diastolic function. There is no pericardial effusion. No significant valve abnormalities. Right atrial pressure is around 5 mm of mercury. Javon Crenshaw MD (Electronically Signed) Final Date: 18 Oct 2024 15:08 S
== END 2024-10-24 23:59 | disposition home or self-care (01) ==
LOC: ONCMED 11:50 → RAD 10-16 00:01 → ONCMED 10-20 09:29
PROVIDERS: Internal Medicine Medical Oncology; PCP Family Medicine; Visit Provider Nurse Practitioner Family
DX: Z53.9 Procedure and treatment not carried out, unspecified reason; R06.02 Shortness of breath; Z79.899 Other long term (current) drug therapy
CPT/HCPCS: 36415; 71046; 80053; 85025; 86300; 93306; 96365; 99214; J3489

== ENCOUNTER 2024-11-10 10:30 | Oncology outpatient (recurring) (ONCR) | payer MEDICARE, SELFPAY ==
[2024-10-27 10:42] LABS: Basophils % 0.4 %; Eosinophils # 0.1 10^3/uL (0.0-0.8); Eosinophils % 1.2 %; Lymphocytes # 0.8 10^3/uL (0.8-4.8); Lymphocytes % 10.9 %; Mean Corpuscular HGB Conc 31.6 g/dL (30-55); Mean Corpuscular Hemoglobin 29.5 pg (27-33); Mean Corpuscular Volume 93.4 fl (85-98); Mean Platelet Volume 9.4 fL (7.4-10.4); Monocytes # 0.6 10^3/uL (0.2-0.9); Monocytes % 8.6 %; Neutrophils # 5.78 10^3/uL (1.8-7.7); Neutrophils % 78.6 %; Nucleated Red Blood Cells % 0 %; Platelet Count 205 10^3/cmm (157-399); Red Blood Count 4.07 10^6/uL (3.85-5.65); Red Cell Distribution Width 16.6 % (12.1-15.1); White Blood Count 7.35 10^3/uL (3.29-11.43)
[2024-10-27 11:02] LABS: Alanine Aminotransferase 9 U/L (0-33); Albumin Level 3.9 g/dL (3.5-5.2); Alkaline Phosphatase 89 U/L (35-105); Anion Gap 18.2 (5-19); Aspartate Amino Transferase 18 U/L (0-32); Blood Urea Nitrogen 16 mg/dL (8-23); Calcium 9.6 mg/dL (8.5-10.5); Carbon Dioxide 31 mmol/L (22-29); Chloride 96 mmol/L (98-107); Globulin 2.9 g/dL (1.3-4.6); Glucose 152 mg/dL (65-115); Osmolality Calculated 298 mOsm/kg (285-295); Potassium 3.2 mmol/L (3.5-5.1); Sodium 142 mmol/L (136-145); Total Bilirubin 0.6 mg/dL (0.15-1.2); Total Protein 6.8 g/dL (6.6-8.7)
--- NOTE | 2024-11-06 10:30 | PETR_ITS ---
PROCEDURE INFORMATION: Exam: PET/CT Skull Base to Mid-thigh Exam date and time: 11/06/2024 11:42 AM Age: 79 years old Clinical indication: Condition or disease; Primary cancer: Secondary malignant neoplas of bone; Follow-up oncological assessment; Additional info: Secondary malignant neoplas of bone, Dr. Pereira would like this done on 11/06 LABS AND CLINICAL REPORTS: Glucose: 193 mg/dl Treatment strategy for malignancy (PET staging): Restaging (PS) TECHNIQUE: Imaging protocol: Following at least four-hour fasting and following the injection of radiopharmaceutical, low dose CT images were obtained. Then, PET images were obtained. Attenuation corrected images were constructed using the CT scan. Fused images of PET and CT were reviewed. The standardized uptake values (SUV) reported below are maximum values within a region of interest, expressed in gm/ml. Exam includes orbital meatal line to mid-thigh. SUV normalization method: BodyWeight Radiopharmaceutical: 11.51 mCi F-18 FDG (Fluorodeoxyglucose), IV. Time of imaging post radiopharmaceutical administration: 51 minutes Injection site: LAC COMPARISON: PT PET skull to thigh SUBS [id number] 07/31/2024 3:19 PM FINDINGS: Brain: Visualized brain has normal physiologic uptake. Teeth: Asymmetric uptake in the region of the most posterior left mandibular tooth is identified, SUV max 6.3 on PET series 301, image 28. The uptake is likely inflammatory/related to periodontal disease. Pharynx: No abnormal uptake. Larynx: No abnormal uptake. Lungs, pleura and trachea: Large left and moderate right-sided pleural effusions are present. Elevated uptake in areas of new or increased patchy consolidation are noted in the lungs, for example in the lateral left upper lobe, SUV max 4.[address] image 80. Left lower lobe perihilar uptake within an area of masslike consolidation measuring up to 5.8 cm in transverse dimension on series 202, image 102 demonstrates an SUV max 7.7 (previously 5.7) on image 106. Uptake in the region of the posterior pleural surface in the left lower lobe where there is evidence of mild pleural thickening is new, SUV max 7.3 on image 117. Radiotracer uptake has increased within bilateral solid pulmonary nodules which have increased in size. Examples: Measuring 1.0 x 0.9 cm (previously 0.7 cm) in the medial right lower lobe on CT image 104, SUV max 3.8 (previously 1.2); measuring 8 mm (previously 5 mm) in the anterior left upper lobe on image 74, SUV max 3.0. New uptake within more prominent clustered nodules and patchy density in the inferior right middle lobe currently demonstrates an SUV max 3.5 on image 104. Heart: Normal physiologic uptake. Mediastinal space: No abnormal uptake. Liver: Two areas of abnormal uptake are identified within the right lobe of the liver corresponding to ill-defined soft tissue density on the CT images, the largest of which is located anteriorly measuring approximately 4.8 x [address] image 151, SUV max 6.5 (previously 4.2). Uptake within the more posteriorly located region is new within the right lower lobe, SUV max 4.8 on image 145. Gallbladder and biliary ducts: No abnormal uptake. Cholecystectomy clips are present. Pancreas: No abnormal uptake. Spleen: No abnormal uptake. Calcified granulomas in the spleen are present. Adrenal glands: No abnormal uptake. Kidneys and ureters: Normal physiologic uptake. A low-density structure arising from the left renal inferior pole without elevated uptake likely represents a benign cyst measuring 10.6 x 9.2 cm on series 202, image 182. Stomach and bowel: There is persistent uptake in the left lateral wall of the rectum, SUV max 13.1 on image 235 corresponding to soft tissue density projecting into the lumen measuring 1.4 x 0.6 cm. Vasculature: No abnormal uptake. Lymph nodes: Elevated uptake is identified in areas of soft tissue density likely representing ill-defined lymph nodes in the aortopulmonary window, greatest laterally, SUV max 5.7 (previously 3.4) on PET and CT image 79. Elevated uptake within lymph nodes in the region of the celiac artery with new, for example measuring [address] image 143, SUV max 3.7. Skeleton: Multifocal radiotracer avid mixed lytic and sclerotic osseous lesions are noted, some of which demonstrate decreased uptake. Examples: Left glenoid, SUV max 9.4 (previously 11.6); left scapular body, SUV max 8.9 (previously 9.1); right glenoid, SUV max 8.5 (previously 9.7); T8 vertebral body, SUV max 9.1 (previously 9.5), right iliac bone on image 201, SUV max 11.4 (previously 8.2); right sacrum, SUV max 8.2 (previously 12.0) on image 204; left acetabulum, SUV max 6.8 (previously 8.7) on image 224. Additional lesions demonstrate interval increase in uptake. Examples: SUV max 11.4 (previously 9.7) in the right pubic bone on image 231; right femoral lesser trochanter, SUV max 7.7 (previously 4.1); proximal left humeral shaft, SUV max 6.4 (previously 3.5) C2 vertebral body, SUV max 7.7 (previously 5.7) image 24. Soft tissues: No abnormal uptake in the visualized head, neck, chest, abdomen, pelvis, and extremities. Bilateral breast implants are noted. PET/PET skull to thigh INIT [id number] IMPRESSION: 1. There has been an interval increase in uptake in masslike consolidation in the left lower lobe concerning for increased malignant involvement. 2. Interval increase in size and radiotracer activity in bilateral solid pulmonary nodules compatible with metastases. 3. New areas of consolidation in the left lung demonstrate elevated uptake, which can be related to inflammatory, infectious or malignant involvement. 4. Uptake within areas of soft tissue density in the aortopulmonary window likely within lymph nodes has increased, and there are new radiotracer avid lymph nodes in the celiac axis compatible with metastases. 5. Increased number and size of foci of abnormal uptake in the liver consistent with metastases. 6. Numerous scattered radiotracer avid osseous metastatic lesions are noted, some of which demonstrate decreased uptake, while others demonstrate increased uptake consistent with an interval mixed response to therapy. 7. A focus of elevated uptake in the wall of the rectum on the left persists and appears to correspond to a soft tissue density nodule in this region concerning for possible malignancy. 8. Large left and moderate right pleural effusions. 9. The patient's serum glucose was reported at 193 mg/dL. There is no provided history of known diabetes mellitus. Correlation with clinical history is recommended. 10. Additional nonurgent findings as detailed above.
[2024-11-10 10:49] LABS: Basophils % 0.3 %; Eosinophils # 0.1 10^3/uL (0.0-0.8); Eosinophils % 0.8 %; Lymphocytes # 0.7 10^3/uL (0.8-4.8); Mean Corpuscular HGB Conc 31.9 g/dL (30-55); Mean Corpuscular Hemoglobin 29.6 pg (27-33); Mean Corpuscular Volume 92.5 fl (85-98); Mean Platelet Volume 8.6 fL (7.4-10.4); Monocytes # 0.5 10^3/uL (0.2-0.9); Monocytes % 6.9 %; Neutrophils # 5.35 10^3/uL (1.8-7.7); Neutrophils % 81.8 %; Nucleated Red Blood Cells % 0 %; Platelet Count 217 10^3/cmm (157-399); Red Blood Count 3.89 10^6/uL (3.85-5.65); Red Cell Distribution Width 17.2 % (12.1-15.1); White Blood Count 6.53 10^3/uL (3.29-11.43)
[2024-11-10 11:41] LABS: Alanine Aminotransferase 6 U/L (0-33); Alkaline Phosphatase 76 U/L (35-105); Anion Gap 12.3 (5-19); Aspartate Amino Transferase 14 U/L (0-32); Blood Urea Nitrogen 22 mg/dL (8-23); CA 15-3 174.7 U/mL (0-25); Calcium 9.1 mg/dL (8.5-10.5); Carbon Dioxide 38 mmol/L (22-29); Chloride 91 mmol/L (98-107); Globulin 2.9 g/dL (1.3-4.6); Glucose 133 mg/dL (65-115); Osmolality Calculated 291 mOsm/kg (285-295); Potassium 3.3 mmol/L (3.5-5.1); Sodium 138 mmol/L (136-145); Total Bilirubin 0.8 mg/dL (0.15-1.2); Total Protein 6.9 g/dL (6.6-8.7)
== END 2024-11-22 23:59 | disposition home or self-care (01) ==
PROVIDERS: PCP Family Medicine; Visit Provider Internal Medicine Medical Oncology
DX: C50.911 Malignant neoplasm of unspecified site of right female breast (principal); Z17.0 Estrogen receptor positive status [ER+]; C79.51 Secondary malignant neoplasm of bone; C78.2 Secondary malignant neoplasm of pleura; J91.0 Malignant pleural effusion; R03.0 Elevated blood-pressure reading, without diagnosis of hypertension
CPT/HCPCS: 36415; 78815; 80053; 85025; 86300; 99214; A9552